=== PATIENT | female | born 1975 | race Caucasian/White ===

== ENCOUNTER 2020-01-04 19:45 | Emergency (ER) | payer MEDICARE, SELFPAY ==
[2020-01-04 20:39] VITALS: BP 140/85; PULSE 122; RESP 18; TEMP 36.6; O2SAT 95; BMI 38.7
--- NOTE | 2020-01-04 21:51 | ECG_ITS ---
Measurements Intervals [place] Rate: 121 P: 56 HI: 170 QRS: 47 QRSD: 101 T: 59 QT: 303 QTc: 431 SINUS TACHYCARDIA WITH FREQUENT VENTRICULAR PREMATURE COMPLEXES INCOMPLETE RIGHT BUNDLE BRANCH BLOCK [90+ ms QRS DURATION, TERMINAL R IN V1/V2, 40+ ms S IN I/aVL/V4/V5/V6] MODERATE ST DEPRESSION [0.05+ mV ST DEPRESSION] No previous ECG available for comparison Electronically Signed On 01-08-2020 16:55:13 WARP CHANGER by Dave Prieto M.D. [id number] tracy
[2020-01-04 22:39] VITALS: BP 124/85; PULSE 111; RESP 18; O2SAT 95
[2020-01-04 22:50] LABS: Basophils # 0.1 10^3/uL (0.0-0.1); Basophils % 0.6 %; Eosinophils # 0.3 10^3/uL (0.0-0.8); Eosinophils % 3.1 %; Hematocrit 43.3 % (37.0-47.0); Hemoglobin 14.2 g/dL (11.5-15.3); Lymphocytes # 2.9 10^3/uL (0.8-4.8); Lymphocytes % 34.7 %; Mean Corpuscular HGB Conc 32.8 g/dL (30.0-36.0); Mean Corpuscular Hemoglobin 29.1 pg (28.0-34.0); Mean Corpuscular Volume 88.7 fL (81-99); Mean Platelet Volume 8.4 fL (7.4-10.4); Monocytes # 0.5 10^3/uL (0.2-0.9); Monocytes % 6.2 %; Neutrophils # 4.6 10^3/uL (1.8-7.7); Neutrophils % 55.2 %; Nucleated Red Blood Cells % 0 %; Platelet Count 429 10^3/cmm (130-400); Red Blood Count 4.88 10^6/uL (4.1-5.3); Red Cell Distribution Width 12.5 % (12.1-15.1); White Blood Count 8.4 10^3/uL (4.0-10.0)
[2020-01-04 22:51] LABS: Add Urine Microscopic? NO
[2020-01-04 22:58] LABS: HCG, Serum Qual Negative (Negative)
[2020-01-04 22:59] LABS: Bilirubin Urine Neg (NEGATIVE); Blood Urine Neg (Negative); Glucose Urine UA Norm (Normal); Ketones Urine Negative (Negative); Leukocyte Esterase Urine Negative (Negative); Nitrate Urine Negative (Negative); Protein Urine Neg (Negative); Urine Appearance Clear (CLEAR); Urine Color Yellow (Yellow); Urobilinogen Urine Norm (Negative); pH Urine 5 (5-7)
[2020-01-04 23:19] LABS: Troponin T (5th) Once 6 ng/mL (0-10)
[2020-01-04 23:26] LABS: Alanine Aminotransferase 26 U/L (0-33); Albumin Level 4.8 g/dL (3.5-5.2); Alkaline Phosphatase 110 IU/L (35-105); Aspartate Amino Transferase 22 U/L (0-32); Blood Urea Nitrogen 16 mg/dL (6-20); Calcium 10.2 mg/dL (8.5-10.5); Carbon Dioxide 24 mmol/L (22-29); Chloride 99 mmol/L (98-107); Creatine Phosphokinase 123 U/L (26-192); Globulin 3.2 g/dL (1.3-4.6); Glucose 105 mg/dL (65-115); Sodium 137 mmol/L (136-145); Thyroid Stimulating Hormone 3.43 uIU/mL (0.27-4.20); Total Bilirubin 0.3 mg/dL (0.15-1.2)
== END 2020-01-04 22:50 | disposition left against medical advice (07) ==
LOC: ER 21:30
PROVIDERS: Emergency Provider Emergency Medicine; Family Provider Family Medicine; PCP Family Medicine
DX: R42 Dizziness and giddiness (principal); E06.3 Autoimmune thyroiditis; Z87.891 Personal history of nicotine dependence; Z53.21 Procedure and treatment not carried out due to patient leaving prior to being seen by health care provider
CPT/HCPCS: 80053; 81003; 82550; 84443; 84484; 84703; 85025; 93005; 99281; 99283; A9270

== ENCOUNTER 2020-07-07 20:00 | Outpatient (CLI) | payer MEDICARE, SELFPAY | END 2020-07-07 20:01 | disposition home or self-care (01) | LOC: SLEEP 07-08 09:17 | PROVIDERS: Family Provider Family Medicine; PCP Family Medicine; Visit Provider Family Medicine | DX: G47.33 Obstructive sleep apnea (adult) (pediatric) (principal) | CPT/HCPCS: 95811 ==

== ENCOUNTER 2021-03-23 07:47 | Outpatient (CLI) | payer MEDICARE, SELFPAY ==
--- NOTE | 2021-03-23 07:55 | MM_ITS ---
WS: [id number] SCREENING DIGITAL MAMMOGRAM WITH CAD HISTORY: SCREENING COMPARISON: 02/22/2015 Bilateral CC and MLO views submitted. Computer aided detection analyzed. Breast composition: There are scattered areas of fibroglandular density. Ovoid nodules now noted in t he posterior medial RIGHT breast measuring 9.3 mm. On the lateral projection this is probably just ab ove the nipple line. No additional masses. MM/[place] [id number] IMPRESSION: BI-RADS: 0-Incomplete: Need additional imaging evaluation FOLLOW UP: Need Additional Imaging RIGHT breast: Spot compression views (CC and MLO). True ML. Ultrasound to follo w if abnormality persists.
== END 2021-03-23 07:48 | disposition home or self-care (01) ==
LOC: RADSHAW 07:53
PROVIDERS: Family Provider Family Medicine; PCP Family Medicine; Visit Provider Family Medicine
DX: Z12.31 Encounter for screening mammogram for malignant neoplasm of breast (principal)
CPT/HCPCS: 77067

== ENCOUNTER 2021-04-12 07:49 | Outpatient (CLI) | payer MEDICARE, SELFPAY ==
--- NOTE | 2021-04-12 07:54 | MM_ITS ---
WS: [id number] ADDITIONAL VIEWS RIGHT BREAST RIGHT breast ultrasound, limited. HISTORY: ABNORMAL MAMMOGRAM COMPARISON: 02/22/2015 and 03/23/2021 Compression views right CC and MLO projection. True ML also submitted. Early seen only on the CC projection is a slightly lobulated nodule noted in the posterior breast jus t medial to the nipple line. This measures about 8 mm. Very poorly seen. RIGHT breast ultrasound, limited. In the posterior RIGHT breast at 1:00, 3 cm from the nipple is a vague hypoechoic area measuring 7 x 4 x 4 mm which may correspond to the abnormality. This may be a complex cyst. MM/[place] [id number] IMPRESSION: BI-RADS: 3-Probably Benign FOLLOW-UP: 6 Month Follow-up Recommend 6 month follow-up RIGHT breast and ultrasound to reevaluate the minim ally complex cystic nodule in the posterior RIGHT breast.
--- NOTE | 2021-04-12 08:19 | US_ITS ---
WS: [id number] ADDITIONAL VIEWS RIGHT BREAST RIGHT breast ultrasound, limited. HISTORY: ABNORMAL MAMMOGRAM COMPARISON: 02/22/2015 and 03/23/2021 Compression views right CC and MLO projection. True ML also submitted. Early seen only on the CC projection is a slightly lobulated nodule noted in the posterior breast jus t medial to the nipple line. This measures about 8 mm. Very poorly seen. RIGHT breast ultrasound, limited. In the posterior RIGHT breast at 1:00, 3 cm from the nipple is a vague hypoechoic area measuring 7 x 4 x 4 mm which may correspond to the abnormality. This may be a complex cyst. US/US breast RT limited* [id number] IMPRESSION: BI-RADS: 3-Probably Benign FOLLOW-UP: 6 Month Follow-up Recommend 6 month follow-up RIGHT breast and ultrasound to reevaluate the minim ally complex cystic nodule in the posterior RIGHT breast.
== END 2021-04-12 07:50 | disposition home or self-care (01) ==
LOC: RADSHAW 07:52
PROVIDERS: Family Provider Family Medicine; PCP Family Medicine; Visit Provider Family Medicine
DX: R92.8 Other abnormal and inconclusive findings on diagnostic imaging of breast (principal); N63.10 Unspecified lump in the right breast, unspecified quadrant
CPT/HCPCS: 76642; 77065

== ENCOUNTER 2021-12-02 11:50 | Outpatient (CLI) | payer MEDICARE, MEDICAID, SELFPAY ==
--- NOTE | 2021-12-02 12:00 | MM_ITS ---
WS: [id number] RIGHT DIGITAL MAMMOGRAPHY WITH CAD CLINICAL INFORMATION: ABNORMAL MAMMO HISTORY: Six-month follow-up COMPARISON: April 12, 2021 TECHNIQUE: 5 views of the right breast were obtained. FINDINGS: Scattered fibroglandular densities of the right breast. Again seen is the slightly lobulated 8 mm nod ule in the posterior right breast. This is stable in appearance. Right breast ultrasound is pending. ULTRASOUND BREAST RIGHT TECHNIQUE: Ultrasound right breast focused area of concern. CLINICAL INFORMATION: ABNORMAL MAMMO FINDINGS: Ultrasound right breast at the 3:00 position 3 cm from the nipple. Previously described small hypoech oic nodule measuring 5.2 x 4.4 x 3.8 mm is stable in appearance. This may represent a complex cyst bu t indeterminant and recommend 6 month follow-up to confirm stability. MM/[place] [id number] IMPRESSION: BI-RADS: 3-Probably Benign FOLLOW UP: 6 Month Follow-up RECOMMEND 6 MONTH FOLLOW-UP RIGHT BREAST DIAGNOSTIC MAMMOGRAPHY AND ULTRASOUND.
== END 2021-12-02 11:51 | disposition home or self-care (01) ==
PROVIDERS: Family Provider Family Medicine; PCP Family Medicine; Visit Provider Family Medicine
DX: R92.8 Other abnormal and inconclusive findings on diagnostic imaging of breast (principal)
CPT/HCPCS: 76642; 77065

== ENCOUNTER 2022-04-04 07:45 | Outpatient (CLI) | payer OTHER, MEDICAID, SELFPAY ==
--- NOTE | 2022-04-04 | XR_ITS ---
WS: [id number] ELBOW RIGHT TECHNIQUE: 3 views of the right elbow CLINICAL INFORMATION: RIGHT ARM PAIN COMPARISON: None. FINDINGS: Mild soft tissue edema. Small joint effusion. Normal radial head and neck. Slight irregularity along the coronoid process may represent tiny avulsion fracture. Recommend further evaluation with CT. XR/XR elbow RT min 3V* [id number] IMPRESSION: Slight irregularity along the coronoid process may represent tiny avulsion frac ture. Recommend further evaluation with CT.
== END 2022-04-04 07:46 | disposition home or self-care (01) ==
LOC: RADOUTREAD 04-06 07:56
PROVIDERS: Family Provider Family Medicine; PCP Family Medicine; Visit Provider Nurse Practitioner Family
DX: M79.601 Pain in right arm (principal)
CPT/HCPCS: 73080

== ENCOUNTER → 2022-04-20 12:38 | Outpatient (BNVA) | payer MEDICARE, SELFPAY | PROVIDERS: Family Provider Family Medicine; PCP Family Medicine; Referring Provider Family Medicine; Visit Provider Specialist | DX: G56.03 Carpal tunnel syndrome, bilateral upper limbs (principal); G62.89 Other specified polyneuropathies | CPT/HCPCS: 95913 ==

== ENCOUNTER 2022-06-01 10:32 | Outpatient (CLI) | payer MEDICARE, SELFPAY ==
--- NOTE | 2022-06-01 10:43 | MM_ITS ---
WS: [id number] BILATERAL 3D TOMOSYNTHESIS DIGITAL DIAGNOSTIC MAMMOGRAPHY WITH CAD CLINICAL INFORMATION: ABNORMAL MAMMO COMPARISON: April 12, 2021 and December 02, 2021 TECHNIQUE: Bilateral CC, MLO, and ML views. FINDINGS: Scattered fibroglandular densities bilaterally. Previously described lobulated 8 mm nodule in the posterior right breast is less distinct today. No n ew findings. Right breast ultrasound is pending. LEFT breast is unremarkable and unchanged from previous. ULTRASOUND BREAST RIGHT TECHNIQUE: Ultrasound right breast focused area of concern. CLINICAL INFORMATION: ABNORMAL MAMMO FINDINGS: Ultrasound RIGHT breast 11:00 position 3 cm from the nipple. Tiny hypoechoic lesion measuring 5.6 x 2 .1 x 3.5 mm likely represents a complex cyst and unchanged from the prior examinations. This has a be nign appearance. Recommend return to annual screening mammography. MM/[place] [id number] IMPRESSION: BI-RADS: 2-Benign FOLLOW UP: 1 Year Follow-up Recommend return to annual screening mammography.
== END 2022-06-01 10:33 | disposition home or self-care (01) ==
PROVIDERS: PCP Family Medicine; Visit Provider Family Medicine
DX: R92.8 Other abnormal and inconclusive findings on diagnostic imaging of breast (principal)
CPT/HCPCS: 76642; 77062

== ENCOUNTER 2022-06-18 22:10 | Emergency (ER) | payer MEDICARE, SELFPAY ==
[2022-06-18 22:17] VITALS: BP 137/84; PULSE 97; RESP 16; TEMP 36.5; O2SAT 96
--- NOTE | 2022-06-18 22:24 | XRR_ITS ---
PROCEDURE INFORMATION: Exam: XR Chest Exam date and time: 06/18/2022 10:31 PM Age: 47 years old Clinical indication: Pain; Chest pressure; Patient HX: C/O shortness of breath, coughing; Additional info: SOB TECHNIQUE: Imaging protocol: Radiologic exam of the chest. Views: 1 view. COMPARISON: CR Chest 2 views* [id number] 12/06/2015 5:35 PM FINDINGS: Lungs: See Soft tissues finding. Pleural spaces: Unremarkable. No pleural effusion. No pneumothorax. Heart/Mediastinum: No cardiomegaly. Bones/joints: No acute findings. Soft tissues: Questionable ill-defined left basilar opacity may be related to prominent overlying soft tissue. However follow-up including lateral view may be obtained if symptoms persist. Lungs are otherwise grossly clear. XR/XR chest 1V portable [id number] IMPRESSION: ? Ill-defined left basilar opacity.
--- NOTE | 2022-06-18 22:24 | ECG_ITS ---
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 Measurements Intervals [place] Rate: 87 P: 60 CA: 138 QRS: 17 QRSD: 94 T: 51 QT: 325 QTc: 392 Interpretive Statements SINUS RHYTHM LOW QRS VOLTAGE IN PRECORDIAL LEADS [QRS DEFLECTION < 1.0 mV IN CHEST LEADS] Compared to ECG 01/07/2020 21:55:29 Low QRS voltage now present Sinus tachycardia no longer present Ventricular premature complex(es) no longer present Incomplete right bundle-branch block no longer present ST (T wave) deviation no longer present Electronically Signed On 06-19-2022 13:13:00 CDT by Camilo Seals M.D. [id number] f
--- NOTE | 2022-06-18 23:38 | W.ED.COVID ---
HPI - COVID General: Chief Complaint: COVID symptoms Stated Complaint: covid symptoms Time Seen by Provider: 06/18/22 22:53 Source: patient Mode of arrival: ambulatory Limitations: no limitations Triage information: Has fever, cough or shortness of breath. No known COVID + exposure last 14 days History of Present Illness: 47-year-old female states that over the last 4 to 5 days she has been having cough along with wheezing with some slight shortness of breath. States that her cough is worsened. She denies any pain or fevers she denies any worsening proving factors denies any history of COPD is non-smoker. COVID 19 common symptoms: positive non-productive cough and dyspnea; negative fever(s), chills, body aches, headache(s), throat pain, nausea, vomiting or diarrhea COVID 19 other sytmptoms: negative chest pain COVID Results: SARS-CoV-2 Antigen (Rapid) Negative (Negative) 06/18/22 23:38 Review of Systems Const: Denies: fever(s), chills, body aches or change in appetite Eyes: Denies: blurry vision or eye discomfort ENMT: Denies: throat pain or dental pain Card: Denies: chest pain Resp: Reports: dyspnea, non-productive cough and wheezing GI: Denies: abdominal pain, nausea, vomiting or diarrhea : Denies: dysuria Musc: Denies: neck pain or back pain Skin/Breast: Denies: rash Neuro: Denies: headache(s) Psych: Denies: depression Jaspal/Lymph: Denies: easy bruising All/Imm: Denies: urticaria PFSH ED PFSH: Medical History (Updated 06/19/22 @ 00:41 by Alfredo Swann MD) Peripheral neuropathy Social History Smoking and tobacco status: former smoker Alcohol intake: never History of recent travel: No Physical Exam Const: COMMON NORMALS: no acute distress, patient oriented x3 and healthy appearing HENMT: COMMON NORMALS: normocephalic and atraumatic HEAD & SCALP: normocephalic and atraumatic Eye: COMMON NORMALS: Equal, round and reactive pupils present and EOMs intact bilaterally PUPIL: Yes Equal, round and reactive pupils present Neck/C-Spine: COMMON NORMALS: full ROM and supple Chest: COMMONS NORMALS: normal inspection of the chest and normal palpation of entire chest wall Resp: COMMON NORMALS: normal respiratory effort, No retractions and No use of accessory muscles AUSCULTATION: wheezes Cardio: COMMON NORMALS: regular rate, regular rhythm and No murmurs present (Cardio) RATE: regular rate RHYTHM: regular rhythm GI: COMMON NORMALS: Normal to inspection, nondistended, normoactive bowel sounds present, Soft to palpation, non-tender and no masses PALPATION: Yes Soft to palpation Extremity: COMMON NORMALS: normal to inspection and full ROM Neuro: COMMON NORMALS: patient oriented x3, moves all extremities and no focal motor deficits Psych: COMMON NORMALS: mental status grossly normal, Normal thought process present and cooperative THOUGHT PROCESS: Normal thought process present Skin: COMMON NORMALS: no rashes or lesions noted and no wounds GENERAL SKIN EXAM: no rashes or lesions noted Course Vital Signs: Vital signs: Vital Signs Temperature 97.7 F 06/18/22 22:17 Pulse Rate 90 06/18/22 23:41 Respiratory Rate 22 H 06/18/22 23:41 Blood Pressure 109/73 06/18/22 23:41 Pulse Oximetry 98 06/18/22 23:47 Oxygen Delivery Me thod 06/18/22 23:47 MDM - COVID Medical Decision Making Patient presents here with cough with mild wheezing with a likely bronchitis with possible pneumonia we will start on antibiotics along with steroids and albuterol inhaler she is well-appearing here in no distress she is stable for discharge she is to follow-up with PCP and return if worsening she understands agrees to plan. Lab Data : 06/18/22 23:38 06/18/22 23:38 Radiology Impressions Chest X-Ray 06/18/22 22:24 IMPRESSION: ? Ill-defined left basilar opacity. Laboratory Results WBC 11.2 10^3/uL (4.0-10.0) H 06/18/22 23:38 RBC 4.54 10^6/uL (4.1-5.3) 06/18/22 23:38 Hgb 13.4 g/dL (11.5-15.3) 06/18/22 23:38 Hct 41.6 % (37.0-47.0) 06/18/22 23:38 MCV 91.6 fl (81-99) 06/18/22 23:38 MCH 29.5 pg (28.0-34.0) 06/18/22 23:38 MCHC 32.2 g/dL (30.0-36.0) 06/18/22 23:38 RDW 13.6 % (12.1-15.1) 06/18/22 23:38 Plt Count 423 10^3/cmm (130-400) H 06/18/22 23:38 MPV 9.0 fL (7.4-10.4) 06/18/22 23:38 Neut % (Auto) 59.7 % 06/18/22 23:38 Lymph % (Auto) 26.3 % 06/18/22 23:38 [place] % (Auto) 6.5 % 06/18/22 23: Eos % (Auto) 6.3 % 06/18/22 23:38 Baso % (Auto) 0.8 % 06/18/22 23:38 Neut # (Auto) 6.67 10^3/uL (1.8-7.7) 06/18/22 23:38 Lymph # (Auto) 2.9 10^3/uL (0.8-4.8) 06/18/22 23:38 [place] # (Auto) 0.7 10^3/uL (0.2-0.9) 06/18/22 23:38 Eos # (Auto) 0.7 10^3/uL (0.0-0.8) 06/18/22 23: Baso # (Auto) 0.1 10^3/uL (0.0-0.1) 06/18/22 23:38 Nucleated RBC % (auto) 0 % 06/18/22 23: Nucleated RBCs # 0.0 /100WBC 06/18/22 23:38 Sodium 140 mmol/L (136-145) 06/18/22 23:38 Potassium 4.1 mmol/L (3.5-5.1) 06/18/22 23:38 Chloride 104 mmol/L (98-107) 06/18/22 23:38 Carbon Dioxide 25 mmol/L (22-29) 06/18/22 23:38 Anion Gap 15.1 (5-19) 06/18/22 23:38 BUN 11 mg/dL (6-20) 06/18/22 23:38 Creatinine 0.7 mg/dL (0.5-0.9) 06/18/22 23:38 GFR Calculation 89.7 mL/min (90-130) L 06/18/22 23:38 Glucose 104 mg/dL (65-115) 06/18/22 23:38 Calculated Osmolality 290 mOsm/kg (285-295) 06/18/22 23:38 Calcium 9.4 mg/dL (8.5-10.5) 06/18/22 23:38 Total Bilirubin 0.2 mg/dL (0.15-1.2) 06/18/22 23:38 AST 28 U/L (0-32) 06/18/22 23:38 ALT 31 U/L (0-33) 06/18/22 23:38 Alkaline Phosphatase 128 IU/L (35-105) H 06/18/22 23:38 NT-Pro-B Natriuret Pep 68 pg/mL (0-125) 06/18/22 23:38 Total Protein 7.0 g/dL (6.6-8.7) 06/18/22 23:38 Albumin 4.0 g/dL (3.5-5.2) 06/18/22 23:38 Globulin 3.0 g/dL (1.3-4.6) 06/18/22 23:38 SARS-CoV-2 Ag (Rapid) Negative (Negative) 06/18/22 23:38 SARS-CoV-2 Antigen (Rapid) Negative (Negative) 06/18/22 23:38 Discharge Plan Discharge Patient Disposition: Home Clinical Impression: Bronchitis Condition: Stable Prescriptions: New prednisone 50 mg tablet 50 mg PO DAILY Qty: 5 0RF albuterol sulfate 90 mcg/actuation HFA aerosol inhaler 2 inh INHALATION Q6H PRN (Reason: shortness of breath or wheezing) Qty: 8 0RF doxycycline hyclate 100 mg tablet 100 mg PO BID 7 Days Qty: 14 0RF No Action diclofenac sodium 75 mg tablet,delayed release (DR/EC) 75 mg PO BID ergocalciferol (vitamin D2) 1,250 mcg (50,000 unit) capsule 1,250 mcg PO DAILY montelukast 10 mg tablet 10 mg PO DAILY hydroxyzine HCl 25 mg tablet 25 mg PO TID PRN pantoprazole 40 mg tablet,delayed release (DR/EC) 40 mg PO DAILY topiramate [Topamax] 50 mg tablet 150 mg PO DAILY magnesium oxide 400 mg magnesium tablet 400 mg PO DAILY Discharge Orders: Discharge ED (Routine); Ordered 06/19/22 Ordered By: Alfredo Swann Referrals: Gopi Barrera MD [Primary Care Provider] - Discharge Diet: Advance as tolerated Discharge Activity: Resume usual activity Patient Instructions: Bronchitis (Acute) - Adult Coding Level of Care Code ED Steamship Agent for Chg Fwd Exam Comprehensive
[2022-06-18 23:41] VITALS: BP 109/73; PULSE 90; RESP 22; O2SAT 98
[2022-06-18 23:47] VITALS: O2SAT 98
[2022-06-19] MEDS: midazolam 1 mg/mL INJ 2 mL IVP (00:01)
[2022-06-19 00:20] LABS: Basophils # 0.1 10^3/uL (0.0-0.1); Basophils % 0.8 %; Eosinophils # 0.7 10^3/uL (0.0-0.8); Eosinophils % 6.3 %; Hematocrit 41.6 % (37.0-47.0); Hemoglobin 13.4 g/dL (11.5-15.3); Lymphocytes # 2.9 10^3/uL (0.8-4.8); Lymphocytes % 26.3 %; Mean Corpuscular HGB Conc 32.2 g/dL (30.0-36.0); Mean Corpuscular Hemoglobin 29.5 pg (28.0-34.0); Mean Corpuscular Volume 91.6 fl (81-99); Monocytes # 0.7 10^3/uL (0.2-0.9); Monocytes % 6.5 %; Neutrophils # 6.67 10^3/uL (1.8-7.7); Neutrophils % 59.7 %; Nucleated Red Blood Cells % 0 %; Platelet Count 423 10^3/cmm (130-400); Red Blood Count 4.54 10^6/uL (4.1-5.3); Red Cell Distribution Width 13.6 % (12.1-15.1); White Blood Count 11.2 10^3/uL (4.0-10.0)
[2022-06-19 00:24] LABS: Alanine Aminotransferase 31 U/L (0-33); Alkaline Phosphatase 128 IU/L (35-105); Anion Gap 15.1 (5-19); Aspartate Amino Transferase 28 U/L (0-32); Blood Urea Nitrogen 11 mg/dL (6-20); Calcium 9.4 mg/dL (8.5-10.5); Carbon Dioxide 25 mmol/L (22-29); Chloride 104 mmol/L (98-107); Glomerular Filtration Rate 89.7 mL/min (90-130); Glucose 104 mg/dL (65-115); NT Pro B Type Natriuretic Pept 68 pg/mL (0-125); Osmolality Calculated 290 mOsm/kg (285-295); Potassium 4.1 mmol/L (3.5-5.1); Sodium 140 mmol/L (136-145); Total Bilirubin 0.2 mg/dL (0.15-1.2)
[2022-06-19 00:35] LABS: SARS Covid-2 Antigen Negative (Negative)
--- NOTE | 2022-06-19 00:50 | PC.NURSE ---
RT has not started breathing treatments, unable to chart duoneb in jan, duoneb treatments started at this time via nebulizer per order per policy, tolerating well.
[2022-06-19 00:58] VITALS: BP 110/77; PULSE 75; RESP 20; O2SAT 100
[2022-06-19] MEDS: doxycycline 100 mg Tablet PO (01:10)
== END 2022-06-19 01:22 | disposition home or self-care (01) ==
PROVIDERS: Emergency Provider Emergency Medicine; PCP Family Medicine
DX: J40 Bronchitis, not specified as acute or chronic (principal); Z87.891 Personal history of nicotine dependence; Z20.822 Contact with and (suspected) exposure to COVID-19
CPT/HCPCS: 71045; 80053; 83880; 85025; 87426; 93005; 96374; 99285; J2250

== ENCOUNTER → 2022-09-20 14:00 | Outpatient (BNVA) | payer MEDICARE, SELFPAY | PROVIDERS: PCP Family Medicine; Referring Provider Family Medicine; Visit Provider Specialist | DX: G56.03 Carpal tunnel syndrome, bilateral upper limbs (principal); G62.9 Polyneuropathy, unspecified | CPT/HCPCS: 73110; 99204 ==

== ENCOUNTER 2022-12-22 05:40 | Day surgery (SDC) | payer MEDICARE, SELFPAY ==
[2022-12-22] VITALS (8 sets, daily range): BP systolic 110–160; BP diastolic 71–92; PULSE 85–96; RESP 16–18; TEMP 36.1–36.5; O2SAT 95–100
[2022-12-22] MEDS: sodium chloride 0.9% 1,000 ML 30 ML IV (06:30)
[2022-12-22] MEDS: CELEcoxib 200 mg Capsule 400 MG PO (06:31)
[2022-12-22] MEDS: acetaminophen 1,000 MG/100 ML PIGGYBACK 400 MG IV (06:31)
[2022-12-22] MEDS: scopolamine 1.5 Patch 1 PATCH TRANSDERMA (06:45)
--- NOTE | 2022-12-22 06:47 | W.PM.OPSUD ---
Surgery/Procedure H&P Update DATE OF PROCEDURE: December 22, 2022 DATE H&P PERFORMED: 12/20/22 H&P UPDATE INFORMATION: I have reviewed H&P completed within last 30 days, I have examined patient prior to procedure, No changes to prior documentation and H&P is in [facility] EMR on date indicated PREOP DIAGNOSIS: Right carpal tunnel syndrome PLANNED PROCEDURE: Operation Date: 12/22/22 07:00 Proposed Procedures p RIGHT CARPAL TUNNEL RELEASE 10523 G56.00(Right) - Jeanette Moreno MD Related Problem List Diagnoses (1) Carpal tunnel syndrome of right wrist:
[2022-12-22] MEDS: ceFAZolin 2,000 MG in sodium chloride 0.9% (plus) 50 ML 100 MG IV (07:00)
--- NOTE | 2022-12-22 07:03 | P.ANESASSM_ITS ---
Pre-Anesthetic Assessment Height/Weight: Height 1.63 m Weight 108.862 kg Temp Pulse Resp BP Pulse Ox O2 Del Method 97.2 F L 96 16 122/78 100 12/22/22 06:15 12/22/22 06:15 12/22/22 06:15 12/22/22 06:15 12/22/22 06:15 12/22/22 06:15 Preop Diagnosis: Right carpal tunnel syndrome Operation Date: 12/22/22 07:00 Proposed Procedures p RIGHT CARPAL TUNNEL RELEASE 05027 G56.00(Right) - Jeanette Moreno MD Familial anesthetic complications: none Was Beta Cecelia taken within 24 hours: N/A Was Clonidine taken within 24 hours: N/A Last intake: Intake Last Liquid Date 12/21/22 Last Liquid Time 21:00 Last Solid Date 12/21/22 Last Solid Time 21:00 Social No alcohol and No tobacco Exam alert, oriented x 3, clear to auscultation bilaterally and regular rate & rhythm Airway Submandibular: within normal limits Cervical ROM: within normal limits Mallampati: Class II Dentition: full GI Gastroesophageal Reflux Disease Metabolic Morbid Obesity and Thyroid Disease Neuropsych Neuropathy Anesthetic Plan ASA status: 2 Anesthesia: Choice Medications/Allergies Home Medications Medication Instructions Recorded Confirmed Last Taken Type diclofenac sodium 75 mg 75 mg PO BID 04/20/22 12/21/22 12/20/22 History tablet,delayed release ergocalciferol (vitamin D2) 1,250 1,250 mcg PO .WKLY 04/20/22 12/22/22 12/18/22 History mcg (50,000 unit) capsule hydroxyzine HCl 25 mg tablet 25 mg PO TID PRN Anxiety 04/20/22 12/21/22 12/20/22 History magnesium oxide 400 mg PO DAILY 04/20/22 12/21/22 12/20/22 History montelukast 10 mg tablet 10 mg PO DAILY 04/20/22 12/21/22 12/20/22 History pantoprazole 40 mg tablet,delayed 40 mg PO DAILY 04/20/22 12/21/22 12/20/22 History release topiramate 50 mg tablet (Topamax) 150 mg PO BEDTIME 04/20/22 12/22/22 12/21/22 History semaglutide 0.25 mg or 0.5 mg (2 See Rx Instructions .Route 11/08/22 12/21/22 12/21/22 Rx mg/1.5 mL) subcutaneous pen .COMPLEX #1.5 mL injector ([employer]) Cock Up Splint #1 ea 12/20/22 12/20/22 Unknown Rx levothyroxine 75 mcg tablet 75 mcg PO 1XD 12/21/22 12/22/22 12/22/22 History modafinil 200 mg tablet 200 mg PO DAILY 12/21/22 12/22/22 12/20/22 History Allergies Allergy/AdvReac Type Severity Reaction Status Date / Time No Known Allergies Allergy Verified 12/21/22 13:45 Current Medications Generic Name Dose Route Start Last Admin Trade Name Freq PRN Reason Stop Dose Admin Sodium Chloride 1,000 mls @ 30 mls/hr 12/22/22 06:00 12/22/22 06:30 Sodium Chloride 0.9% IV 12/23/22 05:59 30 mls/hr .Q24H KAMALA Administration PFSH Anesthesia Medical History Peripheral neuropathy Social History Smoking and tobacco status: former smoker Alcohol intake: never History of recent travel: No Female Reproductive History Date of last menstrual period: 03/05/22 Data Anesthesia Cardiac Studies: No Data to Display
[2022-12-22 07:11] LABS: OR HCG Qualitative Urine Negative (Negative)
--- NOTE | 2022-12-22 07:50 | PM.OP ---
Operative Report Date of procedure: December 22, 2022 Pre-op diagnosis: Right carpal tunnel syndrome Post-op diagnosis: Right carpal tunnel syndrome Post-op findings: Severe compression across the median nerve with purplish discoloration Procedure done: Right carpal tunnel release Pathology: none sent Surgeon: Jeanette Moreno Jewelry Making Instructor: None Anesthesia: General (Per LMA, ASA 2) Estimated blood loss (mL): 2 Tourniquet time (min): 13 (At 250 mmHg) IV fluids (mL): 500 Urine output (mL): 0 (No Wright) Complications: None Findings: Severe compression across the median nerve with purplish discoloration and fibrous tissue. Condition: stable Disposition: PACU (Then to same-day surgery for discharge home) Brief History: This is an established 47 year old female patient who presented with complaints of bilateral carpal tunnel syndrome. She reported worsening symptoms since her visit in September 2022. She is here today to further discuss her surgical plan.? Risks and complications of carpal tunnel surgery were again reviewed with the patient.? Currently, she notes the right wrist is worse than the left, and she would like to proceed with carpal tunnel release. She is tentatively scheduled for a right carpal tunnel release on 12/22/22. Procedure: The patient was brought to the operating theater. The patient had general anesthesia per LMA, ASA 2. The tourniquet was elevated to 250 mmHg for a total tourniquet time of 13 minutes. The patient was also given Ancef 2 g preoperatively. The arm was then prepped and draped with DuraPrep in usual fashion with the arm draped free. A surgical pause was performed. At the time, the surgical pause, we confirmed the site and side of surgery. We also confirmed the patient's identity, appropriate and timely administration of preoperative antibiotics and preoperative surgical markings. An incision was then made along the thenar crease. The incision crossed the wrist joint in a curvilinear fashion. Dissection continued through skin and soft tissues using a scalpel. The palmaris longus was identified along with the transverse carpal ligament. Each of these was released carefully to avoid injury to the median nerve. We were able to dissect gently into the carpal canal which was noted to be quite tight with significant compression across the median nerve. The nerve was visualized and was an hourglass shape. There is also purplish discoloration to the nerve. The canal was subsequently palpated to assure there was no bony encroachment upon the canal. There was a quite thickened fibrous tissue within the canal, and this was opened longitudinally as well. The canal was then palpated distally and proximally to assure that my small finger was passed easily without impingement. Finding this to be so, attention was directed to closure. The wound was irrigated with ropivacaine plain. It was then closed with 3-0 nylon in an interrupted mattress fashion. Sterile dressing was then placed consisting of Dermabond, OpSite, fluffed fluffs, sterile soft roll, and an Ron wrap. The tourniquet was released after 13 minutes. There were no complications. There were no specimens. The procedure was well tolerated. Plan is the patient will be discharged home. Related Problem List Diagnoses (1) Carpal tunnel syndrome of right wrist:
[2022-12-22] MEDS: HYDROcodone-acetaminophen 5-325 mg Tablet 1 TAB PO (08:53)
--- NOTE | 2022-12-22 14:17 | ANE.PACU2 ---
Inpatient post-anesthesia follow up: Airway intact: Yes Vital signs: Temperature 97.7 F Pulse Rate 85 Respiratory Rate 18 Blood Pressure 139/78 Pulse Oximetry 99 Oxygen Delivery Me thod Room Air Oxygen Flow Rate Fraction of Inspir ed Oxygen Hydration adequate: Yes Nausea and vomiting: No Pain level: 2 Mental status: Baseline
== END 2022-12-22 09:10 | disposition home or self-care (01) ==
PROVIDERS: PCP Family Medicine; Visit Provider Specialist
PROC: (CPT 64721; principal; 2022-12-22 07:00)
DX: G56.01 Carpal tunnel syndrome, right upper limb (principal); K21.9 Gastro-esophageal reflux disease without esophagitis; E66.01 Morbid (severe) obesity due to excess calories; Z68.41 Body mass index [BMI] 40.0-44.9, adult; Z87.891 Personal history of nicotine dependence
CPT/HCPCS: 64721; 81025; 84703; 97760; J0131; J0690; J1100; J2250; J2370; J2405; J2704; J3010; J3490; J7030; L3908

== ENCOUNTER → 2023-01-04 08:19 | Outpatient (BNVA) | payer MEDICARE, SELFPAY | PROVIDERS: PCP Family Medicine; Visit Provider Nurse Practitioner Family | DX: Z47.89 Encounter for other orthopedic aftercare (principal) | CPT/HCPCS: 99024; 99212 ==

== ENCOUNTER 2023-02-05 19:08 | Emergency (ER) | payer MEDICARE, MEDICAID, SELFPAY ==
[2023-02-05 19:17] VITALS: BP 127/87; PULSE 87; RESP 16; TEMP 36.4; O2SAT 98; BMI 40.3
--- NOTE | 2023-02-05 20:02 | ED_ITS ---
HPI - Dental/Oral General: Chief complaint: Dental/Oral Stated complaint: ToothAche Time Seen by Provider: 02/05/23 20:01 History of Present Illness: 48-year-old female comes in today with complaints of left lower jaw pain. Patient has a decayed and fractured tooth. The first premolar has broken off and has a exposed root. Patient was seen by a dentist and was started on antibiotics last week and is supposed to follow-up this . Patient reports some increased pain and discomfort the last 2 days although the swelling to the area has improved. Associated symptoms: Denies fever(s) Review of Systems General: Reports: 10 or more systems reviewed and unremarkable except in HPI and below Const: Denies: fever(s) ENMT: Reports: dental pain Resp: Denies: dyspnea GI: Denies: abdominal pain : Denies: difficulty voiding Skin/Breast: Denies: rash PFSH ED PFSH: Medical History Peripheral neuropathy Social History Smoking and tobacco status: former smoker Alcohol intake: never Physical Exam Const: COMMON NORMALS: alert HENMT: COMMON NORMALS: normocephalic and TM's normal bilaterally HEAD & SCALP: normocephalic FACE & SINUS: Facial tenderness on exam of face and sinuses (Left lower jaw) TYMPANIC MEMBRANE: TM's normal bilaterally TEETH & GINGIVA: Yes poor dentition (Fractured tooth to the gumline first premolar left lower jaw) THROAT: posterior oropharynx normal Neck/C-Spine: COMMON NORMALS: full ROM Chest: COMMONS NORMALS: normal inspection of the chest Resp: COMMON NORMALS: normal respiratory effort GI: COMMON NORMALS: non-tender Extremity: COMMON NORMALS: normal to inspection Neuro: SENSORIUM/ORIENTATION: Yes alert Skin: COMMON NORMALS: turgor normal GENERAL SKIN EXAM: turgor normal Course Vital Signs: Vital signs: Vital Signs Temperature 97.5 F L 02/05/23 19:17 Pulse Rate 87 02/05/23 19:17 Respiratory Rate 16 02/05/23 19:17 Blood Pressure 127/87 02/05/23 19:17 Pulse Oximetry 98 02/05/23 19:17 Oxygen Delivery Me thod 02/05/23 19:17 MDM - Dental/Oral Medical Decision Making 48-year-old female comes in today with left lower jaw pain. On exam patient has no obvious swelling but does have lower left side jaw tenderness. Patient has exposed root to the first premolar of the left lower jaw. Differential diagnosis includes dental abscess, malingering, dental pain. Patient was written a prescription for hydrocodone for severe pain. We will change antibiotics from plain amoxicillin to Augmentin. Patient was also given some viscous lidocaine to help further with pain control and hopefully numbing of the root nerve. Patient reported understanding of care plan need for follow-up with dentist for definitive care. Patient has appointment with the dentist on for definitive care. Discharge Plan Discharge Patient Disposition: Home Clinical Impression: Toothache Condition: Stable Prescriptions: New hydrocodone-acetaminophen 5-325 mg tablet 1 tab PO Q8H PRN (Reason: pain (scale score 7-10)) Qty: 7 0RF Lidocaine Viscous 2 % solution 1 applic mucous membrane Q4H PRN (Reason: pain) Qty: 100 0RF amoxicillin-pot clavulanate 875-125 mg tablet 1 tab PO BID Qty: 14 0RF No Action (DME) Cock Up Splint See Rx Instructions .Route .MEDSUPPLY Qty: 1 0RF Rx Instructions: As directed diclofenac sodium 75 mg tablet,delayed release (DR/EC) 75 mg PO BID ergocalciferol (vitamin D2) 1,250 mcg (50,000 unit) capsule 1,250 mcg PO .WKLY montelukast 10 mg tablet 10 mg PO DAILY hydroxyzine HCl 25 mg tablet 25 mg PO TID PRN (Reason: Anxiety) pantoprazole 40 mg tablet,delayed release (DR/EC) 40 mg PO DAILY topiramate [Topamax] 50 mg tablet 150 mg PO BEDTIME magnesium oxide 400 mg magnesium tablet 400 mg PO DAILY Ozempic 0.25 mg or 0.5 mg(2 mg/1.5 mL) pen injector See Rx Instructions .ROUTE .COMPLEX Qty: 1.5 1RF Dose Instruction: inject 0.25mg SUBCUTANEOUSLY every week FOR FOUR weeks THEN 0.5mg every week Rx Instructions: inject 0.25mg SUBCUTANEOUSLY every week FOR FOUR weeks THEN 0.5mg every week levothyroxine 75 mcg tablet 75 mcg PO 1XD modafinil 200 mg tablet 200 mg PO DAILY Discharge Orders: Discharge ED (Routine); Ordered 02/05/23 Ordered By: Owen Miller Referrals: Gopi Barrera MD [Primary Care Provider] - Discharge Diet: Usual diet Discharge Activity: Increase activity as tolerated Patient Instructions: Toothache (ED), Opioid Safety Activity Restrictions/Additional Instructions: Stop amoxicillin and start taking amoxicillin with potassium clavulanate. Drink plenty of water with antibiotics. Use lidocaine viscous applied to gauze and then to the opening of the tooth for immediate pain relief. Use acetaminophen ibuprofen to help control pain. Use hydrocodone for severe pain. Follow-up with primary care for further instruction. Return to ED for new concerns. Coding Level of Care Code ED Certified First Assistant for Maritza Pickett
[2023-02-05] MEDS: HYDROcodone-acetaminophen 7.5-325 mg Tablet 1 TAB PO (20:37)
[2023-02-05] MEDS: amoxicillin-clav 875-125 mg Tablet 1 TAB PO (20:37)
[2023-02-05] MEDS: lidocaine 2% viscous 15 mL UDC 5 ML MUCOUS MEM (20:38)
== END 2023-02-05 20:40 | disposition home or self-care (01) ==
PROVIDERS: Emergency Provider Nurse Practitioner Family; PCP Family Medicine
DX: K08.89 Other specified disorders of teeth and supporting structures (principal); Z87.891 Personal history of nicotine dependence
CPT/HCPCS: 99283

== ENCOUNTER 2023-04-25 20:48 | Emergency (ER) | payer MEDICARE, MEDICAID, SELFPAY ==
--- NOTE | 2023-04-25 20:57 | XRR_ITS ---
PROCEDURE INFORMATION: Exam: XR Left Knee Exam date and time: 04/25/2023 9:11 PM Age: 48 years old Clinical indication: Pain; Knee; Left; Additional info: Injury TECHNIQUE: Imaging protocol: Radiologic exam of the left knee. Views: 3 views. COMPARISON: No relevant prior studies available. FINDINGS: Bones/joints: Normal. Soft tissues: Normal. XR/XR knee LT 3V* [id number] IMPRESSION: No acute findings.
[2023-04-25 21:01] VITALS: BP 107/70; PULSE 93; RESP 18; TEMP 36.8; O2SAT 97; BMI 38.4
--- NOTE | 2023-04-25 21:08 | ED_ITS ---
HPI - Extremity Problem General: Chief complaint: Extremity Injury, Lower Stated complaint: Left knee injury Time Seen by Provider: 04/25/23 21:08 History of Present Illness: 48-year-old female comes in today with injury to the left knee. Patient reports that she injured her knee about 2 weeks ago but it seemed to be better and today she return to her workout routine. With her first box jump she landed and felt sudden sharp pain to the left lateral knee. Patient since then has had increased pain and difficulty to the knee. Patient appears nontoxic. Patient appears in mild pain at rest. Associated symptoms: Deny chest pain Review of Systems General: Reports: 10 or more systems reviewed and unremarkable except in HPI and below Card: Denies: chest pain Resp: Denies: dyspnea GI: Denies: vomiting : Denies: difficulty voiding Musc: Reports: extremity pain PFSH ED PFSH: Medical History Peripheral neuropathy Social History Smoking and tobacco status: former smoker Alcohol intake: never Substance/Drug Use: former Physical Exam Const: COMMON NORMALS: no acute distress HENMT: COMMON NORMALS: normocephalic HEAD & SCALP: normocephalic Neck/C-Spine: COMMON NORMALS: full ROM Resp: COMMON NORMALS: normal respiratory effort Cardio: COMMON NORMALS: regular rate RATE: regular rate Back/Pelvis: COMMON NORMALS: thoracic and lumbar spine normal to inspection Extremity: LEFT LOWER EXTREMITY: Yes knee joint (Lateral knee joint line tenderness) Left knee: Yes inspection, Yes palpation and Yes ROM Skin: COMMON NORMALS: turgor normal GENERAL SKIN EXAM: turgor normal Course Vital Signs: Vital signs: Vital Signs Temperature 98.2 F 04/25/23 21:01 Pulse Rate 93 04/25/23 21:01 Respiratory Rate 18 04/25/23 21:01 Blood Pressure 107/70 04/25/23 21:01 Pulse Oximetry 97 04/25/23 21:01 Oxygen Delivery Me thod Room Air 04/25/23 21:01 MDM - Extremity (Nontraumatic) Medical Decision Making 48-year-old female comes in today with complaints of injury to the left knee. On exam patient has tenderness along the lateral joint line. No significant swelling or bruising is noted. Differential diagnosis includes but not limited to meniscal tear, ligament tear or sprain, contusion, dislocation, fracture. X- ray noted no significant abnormalities. Reviewed exam with patient with recommendations for follow-up with safety equipment testing specialist for further evaluation and treatment. Recommend using acetaminophen or ibuprofen for further pain. Recommend ice packs. Increasing activity as tolerated. Patient reported understanding agreed to plan. Discharge Plan Discharge Patient Disposition: Home Clinical Impression: Injury of knee, left Qualifiers: Encounter type: initial encounter Qualified Code(s): S89.92XA - Unspecified injury of left lower leg, initial encounter Condition: Stable Prescriptions: No Action (DME) Cock Up Splint See Rx Instructions .Route .MEDSUPPLY Qty: 1 0RF Rx Instructions: As directed diclofenac sodium 75 mg tablet,delayed release (DR/EC) 75 mg PO BID ergocalciferol (vitamin D2) 1,250 mcg (50,000 unit) capsule 1,250 mcg PO .WKLY montelukast 10 mg tablet 10 mg PO DAILY hydroxyzine HCl 25 mg tablet 25 mg PO TID PRN (Reason: Anxiety) pantoprazole 40 mg tablet,delayed release (DR/EC) 40 mg PO DAILY topiramate [Topamax] 50 mg tablet 150 mg PO BEDTIME magnesium oxide 400 mg magnesium tablet 400 mg PO DAILY Ozempic 0.25 mg or 0.5 mg(2 mg/1.5 mL) pen injector See Rx Instructions .ROUTE .COMPLEX Qty: 1.5 1RF Dose Instruction: inject 0.25mg SUBCUTANEOUSLY every week FOR FOUR weeks THEN 0.5mg every week Rx Instructions: inject 0.25mg SUBCUTANEOUSLY every week FOR FOUR weeks THEN 0.5mg every week levothyroxine 75 mcg tablet 75 mcg PO 1XD modafinil 200 mg tablet 200 mg PO DAILY hydrocodone-acetaminophen 5-325 mg tablet 1 tab PO Q8H PRN (Reason: pain (scale score 7-10)) Qty: 7 0RF Lidocaine Viscous 2 % solution 1 applic mucous membrane Q4H PRN (Reason: pain) Qty: 100 0RF amoxicillin-pot clavulanate 875-125 mg tablet 1 tab PO BID Qty: 14 0RF Discharge Orders: Discharge ED (Routine); Ordered 04/25/23 Ordered By: Owen Miller Referrals: Gopi Barrera MD [Primary Care Provider] - Discharge Diet: Usual diet Discharge Activity: Increase activity as tolerated Patient Instructions: Knee Pain (ED) Activity Restrictions/Additional Instructions: Increase activity as tolerated. Use acetaminophen and/or ibuprofen for pain. Drink plenty of water. Use ice or heat for further pain relief. Follow-up with orthopedist for further evaluation and treatment. Return to ED for new concerns. Coding Level of Care Code ED Subsurface Augmentee Elint Operator for Maritza Pickett
[2023-04-25] MEDS: HYDROcodone-acetaminophen 7.5-325 mg Tablet 1 TAB PO (21:21)
--- NOTE | 2023-04-26 09:32 | PC.SOCIAL ---
Addendum entered by Jaylene Álvarez 05/31/23 06:29: This appointment was cancelled Addendum entered by Jaylene Álvarez 05/11/23 14:17: Patient has a follow up appointment scheduled for Sunday, May 14, 2023 at 2:30 with at ortho. Original Note: Ortho Referral Referral sent to ortho at this time, clinic to contact patient with appt date/time.
== END 2023-04-25 21:43 | disposition home or self-care (01) ==
PROVIDERS: Emergency Provider Nurse Practitioner Family; PCP Family Medicine
DX: S89.92XA Unspecified injury of left lower leg, initial encounter (principal); X58.XXXA Exposure to other specified factors, initial encounter; Y93.B9 Activity, other involving muscle strengthening exercises
CPT/HCPCS: 73562; 99283

== ENCOUNTER 2023-09-24 16:03 | Emergency (ER) | payer MEDICARE, MEDICAID, SELFPAY ==
[2023-09-24] VITALS (7 sets, daily range): BP systolic 98–129; BP diastolic 56–83; PULSE 77–100; RESP 16; TEMP 37.1; O2SAT 97–100; BMI 34.3
[2023-09-24 17:37] LABS: Basophils % 0.4 %; Eosinophils # 0.2 10^3/uL (0.0-0.8); Eosinophils % 3.5 %; Hematocrit 43.2 % (36-47); Lymphocytes # 1.8 10^3/uL (0.8-4.8); Lymphocytes % 36.3 %; Mean Corpuscular HGB Conc 31.5 g/dL (30-55); Mean Corpuscular Hemoglobin 29.6 pg (27-33); Mean Corpuscular Volume 93.9 fl (85-98); Mean Platelet Volume 8.5 fL (7.4-10.4); Monocytes # 0.4 10^3/uL (0.2-0.9); Monocytes % 8.1 %; Neutrophils # 2.48 10^3/uL (1.8-7.7); Neutrophils % 51.5 %; Nucleated Red Blood Cells % 0 %; Platelet Count 327 10^3/cmm (157-399); Red Cell Distribution Width 13.8 % (12.1-15.1); White Blood Count 4.82 10^3/uL (3.29-11.43)
--- NOTE | 2023-09-24 17:49 | ED_ITS ---
Documented by User: Pascual Mills DO 10/03/23 07:33 HPI - Nausea/Vomiting/Diarrhea 2 General: Chief complaint: Nausea/Vomiting/Diarrhea Stated complaint: ND,abd pains Time Seen by Provider: 09/24/23 17:39 Source: patient Mode of arrival: ambulatory History of Present Illness: 48-year-old female who presents to the e mergency room with complaints of nausea and vomiting spitting on for last 3 days. 2 weeks ago she had COVID that seem to get better. Several other fellow members have been sick with similar symptoms. She has not had any hematochezia melena hematemesis or coffee-ground emesis. No dysuria urgency or frequency. MD elicited complaint: nausea and vomiting Onset (ago): day(s) (3) Associated nausea: Yes Associated abdominal pain: Yes Location of pain: None Radiation: diffuse Associated symtoms: Reports nausea; Denies chest pain or dysuria Review of Systems 2 Const: Denies: fever(s) or chills Card: Denies: chest pain Resp: Denies: dyspnea GI: Reports: nausea : Denies: dysuria, urinary frequency or urinary urgency Musc: Denies: neck pain or back pain Skin/Breast: Denies: rash PFSH ED 2 PFSH: Medical History Peripheral neuropathy Social History Smoking and tobacco/nicotine status: former use of tobacco/nicotine Alcohol intake: never Substance/Drug Use: former Physical Exam 2 Const: GENERAL APPEARANCE: cooperative and comfortable O RIENTATION/CONSCIOUSNESS: Yes awake, Yes oriented to person, Yes oriented to place and Yes oriented to time GI: COMMON NORMALS: Soft to palpation and No hepatosplenomegaly present A USCULTATION: Yes normoactive bowel sounds PALPATION: Yes Soft to palpation, No Tenderness to palpation present (GI), No Guarding due to palpation present (GI) and Yes No hepatosplenomegaly present Extremity: COMMON NORMALS: normal to inspection, capillary refill normal, no clubbing, cyanosis or edema, no calf tenderness and no pedal edema Neuro: SENSORIUM/ORIENTATION: Yes oriented to person, Yes oriented to place and Yes oriented to time Skin: COMMON NORMALS: no rashes or lesions noted GENERAL SKIN EXAM: no rashes or lesions noted Course 2 Vital Signs: Vital signs: Vital Signs Temperature 98.7 F 09/24/23 16:09 Pulse Rate 85 09/24/23 19:44 Respiratory Rate 16 09/24/23 16:09 Blood Pressure 101/63 09/24/23 23:48 Pulse Oximetry 98 09/24/23 23:48 Oxygen Delivery Me thod Room Air 09/24/23 20:29 MDM - Nausea/Vomiting/Diarrhea Medical Decision Making Care signed out to Dr. Sellers at change of shift. See final notes for diagnosis and disposition. Patient was given 1 L normal saline, 4 mg Zofran, lab work was obtained as well as a gallbladder ultrasound. All of which was essentially benign except elevated liver enzymes of AST 173 and AST 286. Patient was feeling much better she will be discharged home with a prescription of Zofran and be instructed to follow back up with her family practice physician for further evaluation testing. Lab Data 09/24/23 17:16 09/24/23 17:16 Radiology Impressions Gallbladder Ultrasound 09/24/23 18:06 IMPRESSION: Fatty liver. Laboratory Results WBC 4.82 10^3/uL (3.29-11.43) 09/24/23 17:16 RBC 4.60 10^6/uL (3.85-5.65) 09/24/23 17:16 Hgb 13.60 g/dL (11.27-16.99) 09/24/23 17:16 Hct 43.2 % (36-47) 09/24/23 17:16 MCV 93.9 fl (85-98) 09/24/23 17:16 MCH 29.6 pg (27-33) 09/24/23 17:16 MCHC 31.5 g/dL (30-55) 09/24/23 17:16 RDW 13.8 % (12.1-15.1) 09/24/23 17:16 Plt Count 327 10^3/cmm (157-399) 09/24/23 17:16 MPV 8.5 fL (7.4-10.4) 09/24/23 17:16 Neut % (Auto) 51.5 % 09/24/23 17:16 Lymph % (Auto) 36.3 % 09/24/23 17:16 [place] % (Auto) 8.1 % 09/24/23 17:16 Eos % (Auto) 3.5 % 09/24/23 17:16 Baso % (Auto) 0.4 % 09/24/23 17:16 Neut # (Auto) 2.48 10^3/uL (1.8-7.7) 09/24/23 17:16 Lymph # (Auto) 1.8 10^3/uL (0.8-4.8) 09/24/23 17:16 [place] # (Auto) 0.4 10^3/uL (0.2-0.9) 09/24/23 17:16 Eos # (Auto) 0.2 10^3/uL (0.0-0.8) 09/24/23 17:16 Baso # (Auto) 0.0 10^3/uL (0.0-0.1) 09/24/23 17:16 Nucleated RBC % (auto) 0 % 09/24/23 17:16 Nucleated RBCs # 0.0 /100WBC 09/24/23 17:16 Sodium 140 mmol/L (136-145) 09/24/23 17:16 Potassium 3.5 mmol/L (3.5-5.1) 09/24/23 17:16 Chloride 107 mmol/L (98-107) 09/24/23 17:16 Carbon Dioxide 24 mmol/L (22-29) 09/24/23 17:16 Anion Gap 12.5 (5-19) 09/24/23 17:16 BUN 10 mg/dL (6-20) 09/24/23 17:16 Creatinine 0.7 mg/dL (0.5-0.9) 09/24/23 17:16 GFR Calculation 89.3 mL/min (90-130) L 09/24/23 17:16 Glucose 84 mg/dL (65-115) 09/24/23 17:16 Calculated Osmolality 288 mOsm/kg (285-295) 09/24/23 17:16 Calcium 8.7 mg/dL (8.5-10.5) 09/24/23 17:16 Total Bilirubin 0.2 mg/dL (0.15-1.2) 09/24/23 17:16 AST 173 U/L (0-32) H 09/24/23 17:16 ALT 286 U/L (0-33) H 09/24/23 17:16 Alkaline Phosphatase 214 U/L (35-105) H 09/24/23 17:16 Total Protein 7.0 g/dL (6.6-8.7) 09/24/23 17:16 Albumin 3.9 g/dL (3.5-5.2) 09/24/23 17:16 Globulin 3.1 g/dL (1.3-4.6) 09/24/23 17:16 Lipase 35 U/L (13-60) 09/24/23 17:16 HCG, Qual Negative (Negative) 09/24/23 17:16 Urine Color Yellow (Yellow) 09/24/23 19:00 Urine Appearance Sl hazy (CLEAR) A 09/24/23 19:00 Urine pH 5 (5-7) 09/24/23 19:00 Ur Specific [place] 1.025 (1.005-1.030) 09/24/23 19:00 Urine Protein Neg (Negative) 09/24/23 19:00 Urine Glucose (UA) Norm (Normal) 09/24/23 19:00 Urine Ketones Negative (Negative) 09/24/23 19:00 Urine Blood Neg (Negative) 09/24/23 19:00 Urine Nitrate Negative (Negative) 09/24/23 19:00 Urine Bilirubin Neg (Negative) 09/24/23 19:00 Urine Urobilinogen Norm mg/dL (Negative) 09/24/23 19:00 Ur Leukocyte Esterase Negative (Negative) 09/24/23 19:00 Urine RBC Rare /hpf (0-2) 09/24/23 19:00 Urine WBC Rare /hpf (0-5) 09/24/23 19:00 Ur Squamous Epith Cells 10-15 /hpf (0-5) H 09/24/23 19:00 Amorphous Sediment Not Reportable 09/24/23 19:00 Urine Bacteria Trace /hpf (NONE) 09/24/23 19:00 Urine Mucus 2+ /hpf 09/24/23 19:00 Discharge Plan Discharge Patient Disposition: Home Clinical Impression: Dehydration, Gastroenteritis, Elevated liver enzymes Condition: Stable Prescriptions: New ondansetron HCl 4 mg tablet 4 mg PO Q8H PRN (Reason: nausea and vomiting) Qty: 10 0RF No Action (DME) Cock Up Splint See Rx Instructions .Route .MEDSUPPLY Qty: 1 0RF Rx Instructions: As directed diclofenac sodium 75 mg tablet,delayed release (DR/EC) 75 mg PO BID ergocalciferol (vitamin D2) 1,250 mcg (50,000 unit) capsule 1,250 mcg PO .WKLY montelukast 10 mg tablet 10 mg PO DAILY hydroxyzine HCl 25 mg tablet 25 mg PO TID PRN (Reason: Anxiety) pantoprazole 40 mg tablet,delayed release (DR/EC) 40 mg PO DAILY topiramate [Topamax] 50 mg tablet 150 mg PO BEDTIME magnesium oxide 400 mg magnesium tablet 400 mg PO DAILY Ozempic 0.25 mg or 0.5 mg(2 mg/1.5 mL) pen injector See Rx Instructions .ROUTE .COMPLEX Qty: 1.5 1RF Dose Instruction: inject 0.25mg SUBCUTANEOUSLY every week FOR FOUR weeks THEN 0.5mg every week Rx Instructions: inject 0.25mg SUBCUTANEOUSLY every week FOR FOUR weeks THEN 0.5mg every week levothyroxine 75 mcg tablet 75 mcg PO 1XD modafinil 200 mg tablet 200 mg PO DAILY hydrocodone-acetaminophen 5-325 mg tablet 1 tab PO Q8H PRN (Reason: pain (scale score 7-10)) Qty: 7 0RF Lidocaine Viscous 2 % solution 1 applic mucous membrane Q4H PRN (Reason: pain) Qty: 100 0RF amoxicillin-pot clavulanate 875-125 mg tablet 1 tab PO BID Qty: 14 0RF Discharge Orders: Discharge ED (Routine); Ordered 09/24/23 Ordered By: Carlito Sellers Referrals: Gopi Barrera MD [Primary Care Provider] - 1 week Patient Instructions: Abdominal Pain - Adult, Gastroenteritis (ED) Activity Restrictions/Additional Instructions: Please take all your medicine as prescribed please push clear liquids and then advance diet as tolerated please follow-up with your family practice physician within the next 7 to 10 days for further evaluation and testing. Coding Level of Care Code ED [facility] [employer] Manager for [facility] Documented by User: Carlito Sellers DO 09/24/23 23:37 HPI - Nausea/Vomiting/Diarrhea 2 General: Chief complaint: Nausea/Vomiting/Diarrhea Stated complaint: ND,abd pains Time Seen by Provider: 09/24/23 17:39 PFSH ED 2 PFSH: Medical History Peripheral neuropathy Social History Smoking and tobacco/nicotine status: former use of tobacco/nicotine Alcohol intake: never Substance/Drug Use: former Physical Exam 2 Const: COMMON NORMALS: no acute distress, average body habitus, patient oriented x3, no limitations, healthy appearing, alert and well nourished HENMT: COMMON NORMALS: normocephalic, atraumatic, hearing grossly normal bilaterally, external ears normal, Normal external nose present, moist oral mucous membranes and oropharynx normal HEAD & SCALP: normocephalic and atraumatic NOSE: Normal external nose present EXTERNAL EAR: Yes external ears normal Neck/C-Spine: COMMON NORMALS: no JVD Chest: COMMONS NORMALS: normal inspection of the chest and normal palpation of entire chest wall Resp: COMMON NORMALS: normal respiratory effort, No retractions, No use of accessory muscles and clear to auscultation bilaterally AUSCULTATION: clear to auscultation bilaterally Cardio: COMMON NORMALS: no JVD, regular rate, regular rhythm, S1 normal heart sound present, S2 normal heart sound present, No gallops present (Cardio), No clicks present (Cardio), No murmurs present (Cardio) and No rub (Cardio) R ATE: regular rate RHYTHM: regular rhythm HEART SOUNDS: S1 normal heart sound present and S2 normal heart sound present GI: COMMON NORMALS: Normal to inspection, nondistended, normoactive bowel sounds present Neuro: COMMON NORMALS: patient oriented x3 SENSORIUM/ORIENTATION: Yes alert Course 2 Vital Signs: Vital signs: Vital Signs Temperature 98.7 F 09/24/23 16:09 Pulse Rate 85 09/24/23 19:44 Respiratory Rate 16 09/24/23 16:09 Blood Pressure 101/63 09/24/23 23:48 Pulse Oximetry 98 09/24/23 23:48 Oxygen Delivery Me thod Room Air 09/24/23 20:29 MDM - Nausea/Vomiting/Diarrhea Medical Decision Making Patient was given 1 L normal saline, 4 mg Zofran, lab work was obtained as well as a gallbladder ultrasound. All of which was essentially benign except elevated liver enzymes of AST 173 and AST 286. Patient was feeling much better she will be discharged home with a prescription of Zofran and be instructed to follow back up with her family practice physician for further evaluation testing. Lab Data 09/24/23 17:16 09/24/23 17:16 Radiology Impressions Gallbladder Ultrasound 09/24/23 18:06 IMPRESSION: Fatty liver. Laboratory Results WBC 4.82 10^3/uL (3.29-11.43) 09/24/23 17:16 RBC 4.60 10^6/uL (3.85-5.65) 09/24/23 17:16 Hgb 13.60 g/dL (11.27-16.99) 09/24/23 17:16 Hct 43.2 % (36-47) 09/24/23 17:16 MCV 93.9 fl (85-98) 09/24/23 17:16 MCH 29.6 pg (27-33) 09/24/23 17:16 MCHC 31.5 g/dL (30-55) 09/24/23 17:16 RDW 13.8 % (12.1-15.1) 09/24/23 17:16 Plt Count 327 10^3/cmm (157-399) 09/24/23 17:16 MPV 8.5 fL (7.4-10.4) 09/24/23 17:16 Neut % (Auto) 51.5 % 09/24/23 17:16 Lymph % (Auto) 36.3 % 09/24/23 17:16 [place] % (Auto) 8.1 % 09/24/23 17:16 Eos % (Auto) 3.5 % 09/24/23 17:16 Baso % (Auto) 0.4 % 09/24/23 17:16 Neut # (Auto) 2.48 10^3/uL (1.8-7.7) 09/24/23 17:16 Lymph # (Auto) 1.8 10^3/uL (0.8-4.8) 09/24/23 17:16 [place] # (Auto) 0.4 10^3/uL (0.2-0.9) 09/24/23 17:16 Eos # (Auto) 0.2 10^3/uL (0.0-0.8) 09/24/23 17:16 Baso # (Auto) 0.0 10^3/uL (0.0-0.1) 09/24/23 17:16 Nucleated RBC % (auto) 0 % 09/24/23 17:16 Nucleated RBCs # 0.0 /100WBC 09/24/23 17:16 Sodium 140 mmol/L (136-145) 09/24/23 17:16 Potassium 3.5 mmol/L (3.5-5.1) 09/24/23 17:16 Chloride 107 mmol/L (98-107) 09/24/23 17:16 Carbon Dioxide 24 mmol/L (22-29) 09/24/23 17:16 Anion Gap 12.5 (5-19) 09/24/23 17:16 BUN 10 mg/dL (6-20) 09/24/23 17:16 Creatinine 0.7 mg/dL (0.5-0.9) 09/24/23 17:16 GFR Calculation 89.3 mL/min (90-130) L 09/24/23 17:16 Glucose 84 mg/dL (65-115) 09/24/23 17:16 Calculated Osmolality 288 mOsm/kg (285-295) 09/24/23 17:16 Calcium 8.7 mg/dL (8.5-10.5) 09/24/23 17:16 Total Bilirubin 0.2 mg/dL (0.15-1.2) 09/24/23 17:16 AST 173 U/L (0-32) H 09/24/23 17:16 ALT 286 U/L (0-33) H 09/24/23 17:16 Alkaline Phosphatase 214 U/L (35-105) H 09/24/23 17:16 Total Protein 7.0 g/dL (6.6-8.7) 09/24/23 17:16 Albumin 3.9 g/dL (3.5-5.2) 09/24/23 17:16 Globulin 3.1 g/dL (1.3-4.6) 09/24/23 17:16 Lipase 35 U/L (13-60) 09/24/23 17:16 HCG, Qual Negative (Negative) 09/24/23 17:16 Urine Color Yellow (Yellow) 09/24/23 19:00 Urine Appearance Sl hazy (CLEAR) A 09/24/23 19:00 Urine pH 5 (5-7) 09/24/23 19:00 Ur Specific [place] 1.025 (1.005-1.030) 09/24/23 19:00 Urine Protein Neg (Negative) 09/24/23 19:00 Urine Glucose (UA) Norm (Normal) 09/24/23 19:00 Urine Ketones Negative (Negative) 09/24/23 19:00 Urine Blood Neg (Negative) 09/24/23 19:00 Urine Nitrate Negative (Negative) 09/24/23 19:00 Urine Bilirubin Neg (Negative) 09/24/23 19:00 Urine Urobilinogen Norm mg/dL (Negative) 09/24/23 19:00 Ur Leukocyte Esterase Negative (Negative) 09/24/23 19:00 Urine RBC Rare /hpf (0-2) 09/24/23 19:00 Urine WBC Rare /hpf (0-5) 09/24/23 19:00 Ur Squamous Epith Cells 10-15 /hpf (0-5) H 09/24/23 19:00 Amorphous Sediment Not Reportable 09/24/23 19:00 Urine Bacteria Trace /hpf (NONE) 09/24/23 19:00 Urine Mucus 2+ /hpf 09/24/23 19:00 All radiology interpretation(s) finalized by discharge Discharge Plan Discharge Patient Disposition: Home Clinical Impression: Dehydration, Gastroenteritis, Elevated liver enzymes Condition: Stable Prescriptions: New ondansetron HCl 4 mg tablet 4 mg PO Q8H PRN (Reason: nausea and vomiting) Qty: 10 0RF No Action (DME) Cock Up Splint See Rx Instructions .Route .MEDSUPPLY Qty: 1 0RF Rx Instructions: As directed diclofenac sodium 75 mg tablet,delayed release (DR/EC) 75 mg PO BID ergocalciferol (vitamin D2) 1,250 mcg (50,000 unit) capsule 1,250 mcg PO .WKLY montelukast 10 mg tablet 10 mg PO DAILY hydroxyzine HCl 25 mg tablet 25 mg PO TID PRN (Reason: Anxiety) pantoprazole 40 mg tablet,delayed release (DR/EC) 40 mg PO DAILY topiramate [Topamax] 50 mg tablet 150 mg PO BEDTIME magnesium oxide 400 mg magnesium tablet 400 mg PO DAILY Ozempic 0.25 mg or 0.5 mg(2 mg/1.5 mL) pen injector See Rx Instructions .ROUTE .COMPLEX Qty: 1.5 1RF Dose Instruction: inject 0.25mg SUBCUTANEOUSLY every week FOR FOUR weeks THEN 0.5mg every week Rx Instructions: inject 0.25mg SUBCUTANEOUSLY every week FOR FOUR weeks THEN 0.5mg every week levothyroxine 75 mcg tablet 75 mcg PO 1XD modafinil 200 mg tablet 200 mg PO DAILY hydrocodone-acetaminophen 5-325 mg tablet 1 tab PO Q8H PRN (Reason: pain (scale score 7-10)) Qty: 7 0RF Lidocaine Viscous 2 % solution 1 applic mucous membrane Q4H PRN (Reason: pain) Qty: 100 0RF amoxicillin-pot clavulanate 875-125 mg tablet 1 tab PO BID Qty: 14 0RF Discharge Orders: Discharge ED (Routine); Ordered 09/24/23 Ordered By: Carlito Sellers Referrals: Gopi Barrera MD [Primary Care Provider] - 1 week Patient Instructions: Abdominal Pain - Adult, Gastroenteritis (ED) Activity Restrictions/Additional Instructions: Please take all your medicine as prescribed please push clear liquids and then advance diet as tolerated please follow-up with your family practice physician within the next 7 to 10 days for further evaluation and testing. Coding Level of Care Code ED [facility] Manager for Maritza Pickett
[2023-09-24 17:53] LABS: Alanine Aminotransferase 286 U/L (0-33); Albumin Level 3.9 g/dL (3.5-5.2); Alkaline Phosphatase 214 U/L (35-105); Anion Gap 12.5 (5-19); Aspartate Amino Transferase 173 U/L (0-32); Blood Urea Nitrogen 10 mg/dL (6-20); Calcium 8.7 mg/dL (8.5-10.5); Carbon Dioxide 24 mmol/L (22-29); Chloride 107 mmol/L (98-107); Globulin 3.1 g/dL (1.3-4.6); Glomerular Filtration Rate 89.3 mL/min (90-130); Glucose 84 mg/dL (65-115); Lipase 35 U/L (13-60); Osmolality Calculated 288 mOsm/kg (285-295); Potassium 3.5 mmol/L (3.5-5.1); Sodium 140 mmol/L (136-145); Total Bilirubin 0.2 mg/dL (0.15-1.2)
[2023-09-24 18:00] LABS: HCG, Serum Qual Negative (Negative)
--- NOTE | 2023-09-24 18:03 | PC.NURSE ---
NURSE ASSUMED CARE AT 1542
--- NOTE | 2023-09-24 18:06 | USR_ITS ---
PROCEDURE INFORMATION: Exam: US Abdomen, Limited; Right Upper Quadrant Exam date and time: 09/24/2023 7:16 PM Age: 48 years old Clinical indication: Nausea and vomiting; Prior surgery; Surgery date: 6+ months; Surgery type: [place] 2007; Patient HX: Diffuse abdominal pain today. ; Additional info: Abd pain, n/v TECHNIQUE: Imaging protocol: Real time ultrasound of the abdomen with image documentation. Limited exam focused on the right upper quadrant. COMPARISON: CT abdomen pelvis con [id number] 12/04/2016 3:35 PM FINDINGS: Liver: Mildly echogenic, suggesting fatty infiltration. Gallbladder: Surgically absent. Biliary ducts: Normal. No stones. No dilation. Pancreas: Unremarkable as visualized. Right kidney: No mass. No definite stones. No hydronephrosis. US/US gall bladder [id number] IMPRESSION: Fatty liver.
[2023-09-24] MEDS: sodium chloride 0.9% 1,000 ML 999 ML IV ×2 (18:45→22:43)
[2023-09-24 19:15] LABS: Specific Gravity, Urine 1.025 (1.005-1.030); Urine Appearance SL Hazy (CLEAR); Urine Color Yellow (Yellow); pH Urine 5 (5-7)
[2023-09-24 19:16] LABS: Add Urine Microscopic? YES; Bilirubin Urine Neg (Negative); Blood Urine Neg (Negative); Glucose Urine UA Norm (Normal); Ketones Urine Negative (Negative); Leukocyte Esterase Urine Negative (Negative); Nitrate Urine Negative (Negative); Protein Urine Neg (Negative); Urobilinogen Urine Norm (Negative)
[2023-09-24 19:21] LABS: Add Urine Culture? No; Bacteria Urine TRACE /hpf; Mucus Urine 2+ /hpf; RBC Urine RARE /hpf (0-2); WBC Urine RARE /hpf (0-5)
[2023-09-24] MEDS: ondansetron 2 mg/ML SDV 2 mL 4 MG IVP (22:43)
== END 2023-09-24 23:49 | disposition home or self-care (01) ==
PROVIDERS: Physician Assistant; Emergency Provider Family Medicine; PCP Family Medicine
DX: K52.9 Noninfective gastroenteritis and colitis, unspecified (principal); E86.0 Dehydration; R74.8 Abnormal levels of other serum enzymes; Z87.891 Personal history of nicotine dependence
CPT/HCPCS: 36415; 76705; 80053; 81001; 83690; 84703; 85025; 96361; 96374; 99284; J2405; J7030

== ENCOUNTER → 2023-10-06 18:24 | Outpatient (BNVA) | payer MEDICARE, MEDICAID, SELFPAY | PROVIDERS: PCP Family Medicine | DX: R39.9 Unspecified symptoms and signs involving the genitourinary system (principal) | CPT/HCPCS: 81000; 87086 ==

== ENCOUNTER 2024-02-29 23:07 | Emergency (ER) | payer MEDICARE, MEDICAID, SELFPAY ==
[2024-02-29 23:10] VITALS: BP 153/81; PULSE 99; RESP 15; TEMP 36.8; O2SAT 99
[2024-03-01] MEDS: BUPivacaine 0.5% INJ 10 mL INJECTION (00:25)
[2024-03-01 00:58] VITALS: PULSE 80; RESP 14; O2SAT 98
--- NOTE | 2024-03-01 00:58 | ED_ITS ---
Documented by User: ZINA Minor 03/01/24 13:03 HPI - Dental/Oral General: Chief complaint: Dental/Oral Stated complaint: Mouth Pain Time Seen by Provider: 03/01/24 00:00 Source: patient Mode of arrival: ambulatory Limitations: no limitations History of Present Illness: Patient is a 49-year-old female presenting to the emergency department complaining of left lower dental pain for the past couple weeks. Initially she was seen by dentist on 02/17 for a tooth/root removal. She was again seen this prior Sunday for increased pain, where she had a root cleaned out. She was told the pain was probably due to dry socket and that she was prescribed amoxicillin prophylactically for any dental abscess. She has since finished the amoxicillin and is still reporting consistent pain. She is also is noting that she has not been sleeping due to the pain. She notes the pain is starting to spread towards her left ear, however she is denying any drainage, fevers, or any other symptoms at this time. MD Complaint: tooth pain Onset (ago): week(s) Duration: constant Severity: severe Relieving factors: nothing Exacerbating factors: chewing and cold Context: history of dental caries Associated symptoms: Reports ear or mastoid pain; Denies fever(s) Treatment prior to arrival: other (abx) Review of Systems General: Reports: 10 or more systems reviewed and unremarkable except in HPI and below Const: Denies: fever(s), chills or fatigue Eyes: Denies: change in vision ENMT: Reports: mouth pain, dental pain, ear or mastoid pain and sinus pain; Denies: throat pain Card: Denies: chest pain, palpitations, swelling of feet/ankles or lightheadedness Resp: Denies: dyspnea, productive cough or wheezing GI: Denies: abdominal pain, nausea, vomiting, diarrhea or constipation : Denies: flank pain, difficulty voiding, dysuria or urinary frequency Musc: Denies: neck pain, back pain or joint pain Skin/Breast: Denies: rash Neuro: Denies: headache(s), numbness in extremities or weakness in extremities PFS ED PFSH: Medical History Peripheral neuropathy Social History Smoking and tobacco/nicotine status: former use of tobacco/nicotine Alcohol intake: never Substance/Drug Use: former Physical Exam Const: COMMON NORMALS: no acute distress and healthy appearing GENERAL APPEARANCE: cooperative, comfortable and well developed HENMT: COMMON NORMALS: normocephalic, atraumatic, hearing grossly normal bilaterally, external ears normal, EAC's normal, TM's normal bilaterally, Normal external nose present and Normal nasal mucous membranes and turbinates present HEAD & SCALP: normal to inspection, normocephalic and atraumatic FACE & SINUS: normal facial exam and sinuses nontender NOSE: Normal external nose present, Normal nares present, No nasal polyps present and Normal nasal mucous membranes and turbinates present EXTERNAL EAR: Yes external ears normal EXTERNAL AUDITORY CANAL: EAC's normal TYMPANIC MEMBRANE: TM's normal bilaterally MOUTH: Normal oral and palatal mucosa present THROAT: posterior oropharynx normal and tonsils normal OTHER: Moderately to severe tender to palpation of the left lower jaw extending towards the left ear. No significant facial edema noted. Left lower dentition shows evidence of recent tooth/root extraction. There is no active drainage, edema, or surrounding erythema. Eye: COMMON NORMALS: EOMs intact bilaterally, conjunctivae normal and normal visual menendez by confrontation GENERAL EYE: appearance normal, both eyes and all related structures CONJUNCTIVA: Yes conjunctivae normal Neck/C-Spine: COMMON NORMALS: full ROM, no lymphadenopathy, supple and no meningeal signs GENERAL: Yes normal visual inspection Chest: COMMONS NORMALS: normal inspection of the chest Resp: COMMON NORMALS: normal respiratory effort and clear to auscultation bilaterally EFFORT & INSPECTION: Yes able to speak in complete sentences AUSCULTATION: clear to auscultation bilaterally Cardio: COMMON NORMALS: regular rate, regular rhythm, S1 normal heart sound present and S2 normal heart sound present RATE: regular rate RHYTHM: regular rhythm HEART SOUNDS: S1 normal heart sound present, S2 normal heart sound present, no gallops, no murmurs and no rubs Extremity: COMMON NORMALS: normal to inspection, full ROM and capillary refill normal Neuro: MENINGEAL SIGNS: Yes no meningeal signs Skin: COMMON NORMALS: no rashes or lesions noted GENERAL SKIN EXAM: no rashes or lesions noted Procedures Nerve Block Nerve Block 1: Local Anesthetic: bupivacaine 0.5% Amount of anesthesia used (mL): 7 Side: left Intraoral Nerve Block: mental Procedure Successful: Yes Patient Tolerated Procedure: well Complications: none Additional Comments: Consent for operation or procedure: Risks and benefits discussed with patient and consent obtained Anesthesia: 7 ml of 0.5% Bupivicaine The distribution of the mental nerve was identified. Bupivacaine was injected into that region. A short time later adequate analgesia was obtained. Estimated Blood Loss: minimal Complications: The patient tolerated the procedure well without complications. Course Vital Signs: Vital signs: Vital Signs Temperature 98.2 F 02/29/24 23:10 Pulse Rate 80 03/01/24 00:58 Respiratory Rate 14 03/01/24 00:58 Blood Pressure 153/81 02/29/24 23:10 Pulse Oximetry 98 03/01/24 00:58 Oxygen Delivery Me thod Room Air 02/29/24 23:10 MDM - Dental/Oral Medical Decision Making Patient seen for dental pain she has been having for the past couple weeks. She has seen the dentist twice. Recently finished amoxicillin for prophylactic treatment of dental abscess. Vitals on arrival normal as patient was afebrile. Examination revealed that she was moderately to severe tender to palpation of the left lower dentition with extension towards the left ear. I offered patient a shot of bupivacaine for analgesia, to which she oblige his. See procedure note. She notes that her pain is absent and she will follow-up with dentist on Sunday for reevaluation. There are no signs of infection as I do not believe she is dealing with a dental abscess, more of etiology being post operative from root extraction/tooth removal. Reasons to return are discussed including any signs of infection. She agrees. No radiology studies performed this visit Discharge Plan Discharge Patient Disposition: Home Clinical Impression: Pain, dental Condition: Stable Prescriptions: New prednisone 20 mg tablet 60 mg PO ONCE 5 Days Qty: 15 0RF No Action (DME) Cock Up Splint See Rx Instructions .Route .MEDSUPPLY Qty: 1 0RF Rx Instructions: As directed diclofenac sodium 75 mg tablet,delayed release (DR/EC) 75 mg PO BID ergocalciferol (vitamin D2) 1,250 mcg (50,000 unit) capsule 1,250 mcg PO .WKLY hydroxyzine HCl 25 mg tablet 25 mg PO TID PRN (Reason: Anxiety) pantoprazole 40 mg tablet,delayed release (DR/EC) 40 mg PO DAILY topiramate [Topamax] 50 mg tablet 150 mg PO BEDTIME magnesium oxide 400 mg magnesium tablet 400 mg PO DAILY ciprofloxacin HCl [Cipro] 500 mg tablet 500 mg PO Q12H 10 Days Qty: 20 0RF phenazopyridine [Pyridium] 200 mg tablet 200 mg PO Q8H PRN (Reason: pain) Qty: 9 0RF Ozempic 0.25 mg or 0.5 mg(2 mg/1.5 mL) pen injector See Rx Instructions .ROUTE .COMPLEX Qty: 1.5 1RF Dose Instruction: inject 0.25mg SUBCUTANEOUSLY every week FOR FOUR weeks THEN 0.5mg every week Rx Instructions: inject 0.25mg SUBCUTANEOUSLY every week FOR FOUR weeks THEN 0.5mg every week levothyroxine 75 mcg tablet 75 mcg PO 1XD modafinil 200 mg tablet 200 mg PO DAILY hydrocodone-acetaminophen 5-325 mg tablet 1 tab PO Q8H PRN (Reason: pain (scale score 7-10)) Qty: 7 0RF Lidocaine Viscous 2 % solution 1 applic mucous membrane Q4H PRN (Reason: pain) Qty: 100 0RF ondansetron HCl 4 mg tablet 4 mg PO Q8H PRN (Reason: nausea and vomiting) Qty: 10 0RF Discharge Orders: Discharge ED (Routine); Ordered 03/01/24 Ordered By: Maicol Hamilton Referrals: Gopi Barrera MD [Primary Care Provider] - Discharge Diet: Usual diet Discharge Activity: Increase activity as tolerated Patient Instructions: Toothache (ED) Activity Restrictions/Additional Instructions: Prednisone as prescribed. Follow-up with dentist as instructed. Return if you develop any new or concerning symptoms. Coding Level of Care Code ED Stock Crane Operator for Chg Fwd Documented by User: Pascual Mills DO 03/05/24 09:05 HPI - Dental/Oral General: Chief complaint: Dental/Oral Stated complaint: Mouth Pain Time Seen by Provider: 03/01/24 00:00 [facility] ED PFSH: Medical History Peripheral neuropathy Social History Smoking and tobacco/nicotine status: former use of tobacco/nicotine Alcohol intake: never Substance/Drug Use: former Course Vital Signs: Vital signs: Vital Signs Temperature 98.2 F 02/29/24 23:10 Pulse Rate 80 03/01/24 00:58 Respiratory Rate 14 03/01/24 00:58 Blood Pressure 153/81 02/29/24 23:10 Pulse Oximetry 98 03/01/24 00:58 Oxygen Delivery Me thod Room Air 02/29/24 23:10 MDM - Dental/Oral Medical Decision Making Patient seen for dental pain she has been having for the past couple weeks. She has seen the dentist twice. Recently finished amoxicillin for prophylactic treatment of dental abscess. Vitals on arrival normal as patient was afebrile. Examination revealed that she was moderately to severe tender to palpation of the left lower dentition with extension towards the left ear. I offered patient a shot of bupivacaine for analgesia, to which she oblige his. See procedure note. She notes that her pain is absent and she will follow-up with dentist on Sunday for reevaluation. There are no signs of infection as I do not believe s he is dealing with a dental abscess, more of etiology being post operative from root extraction/tooth removal. Reasons to return are discussed including any signs of infection. She agrees. Chart reviewed Discharge Plan Discharge Patient Disposition: Home Clinical Impression: Pain, dental Condition: Stable Prescriptions: New prednisone 20 mg tablet 60 mg PO ONCE 5 Days Qty: 15 0RF No Action (DME) Cock Up Splint See Rx Instructions .Route .MEDSUPPLY Qty: 1 0RF Rx Instructions: As directed diclofenac sodium 75 mg tablet,delayed release (DR/EC) 75 mg PO BID ergocalciferol (vitamin D2) 1,250 mcg (50,000 unit) capsule 1,250 mcg PO .WKLY hydroxyzine HCl 25 mg tablet 25 mg PO TID PRN (Reason: Anxiety) pantoprazole 40 mg tablet,delayed release (DR/EC) 40 mg PO DAILY topiramate [Topamax] 50 mg tablet 150 mg PO BEDTIME magnesium oxide 400 mg magnesium tablet 400 mg PO DAILY ciprofloxacin HCl [Cipro] 500 mg tablet 500 mg PO Q12H 10 Days Qty: 20 0RF phenazopyridine [Pyridium] 200 mg tablet 200 mg PO Q8H PRN (Reason: pain) Qty: 9 0RF Ozempic 0.25 mg or 0.5 mg(2 mg/1.5 mL) pen injector See Rx Instructions .ROUTE .COMPLEX Qty: 1.5 1RF Dose Instruction: inject 0.25mg SUBCUTANEOUSLY every week FOR FOUR weeks THEN 0.5mg every week Rx Instructions: inject 0.25mg SUBCUTANEOUSLY every week FOR FOUR weeks THEN 0.5mg every week levothyroxine 75 mcg tablet 75 mcg PO 1XD modafinil 200 mg tablet 200 mg PO DAILY hydrocodone-acetaminophen 5-325 mg tablet 1 tab PO Q8H PRN (Reason: pain (scale score 7-10)) Qty: 7 0RF Lidocaine Viscous 2 % solution 1 applic mucous membrane Q4H PRN (Reason: pain) Qty: 100 0RF ondansetron HCl 4 mg tablet 4 mg PO Q8H PRN (Reason: nausea and vomiting) Qty: 10 0RF Discharge Orders: Discharge ED (Routine); Ordered 03/01/24 Ordered By: Maicol Hamilton Referrals: Gopi Barrera MD [Primary Care Provider] - Discharge Diet: Usual diet Discharge Activity: Increase activity as tolerated Patient Instructions: Toothache (ED) Activity Restrictions/Additional Instructions: Prednisone as prescribed. Follow-up with dentist as instructed. Return if you develop any new or concerning symptoms. Coding Level of Care Code ED Stock Crane Operator for Maritza Pickett
== END 2024-03-01 00:53 | disposition home or self-care (01) ==
PROVIDERS: Emergency Provider Physician Assistant; PCP Family Medicine
DX: K08.89 Other specified disorders of teeth and supporting structures (principal); Z79.85 Long-term (current) use of injectable non-insulin antidiabetic drugs; Z87.891 Personal history of nicotine dependence
CPT/HCPCS: 64450; 99283; J3490

== ENCOUNTER → 2024-10-28 15:47 | Outpatient (BNVA) | payer MEDICARE, MEDICAID, SELFPAY | PROVIDERS: PCP Family Medicine; Visit Provider Registered Nurse Neonatal Intensive Care | DX: Z20.828 Contact with and (suspected) exposure to other viral communicable diseases (principal) | CPT/HCPCS: 87400 ==

== ENCOUNTER 2024-11-13 09:14 | Outpatient (CLI) | payer MEDICARE, MEDICAID, SELFPAY ==
--- NOTE | 2024-11-13 09:30 | CT_ITS ---
WS: [id number] CT NECK WITH CONTRAST HISTORY: M54.2 CERVICALGIA, palpable area RIGHT neck. TECHNIQUE: Contiguous 2 mm axial images are performed through the neck with intravenous contrast. Sag ittal and coronal reformats are also submitted. All CT scans at [facility] use at least one o f these dose optimization techniques: automated exposure control; mA and/or kV adjustment per patient size (includes targeted exams where dose is matched to clinical indication); or iterative reconstruc tion. CONTRAST: CONTRAST: Omnipaque 350; 100 mL IV. DLP: 181.21 mGy.cm COMPARISON: None available. Marker placed over the palpable nodule in the RIGHT neck corresponds to the external jugular vein. Th is is a normal-appearing vein with enhancement. The adjacent sternocleidomastoid muscle is normal. Th ere are a few small lymph nodes along the cervical chain. Nasopharynx, oropharynx, hypopharynx and larynx are unremarkable. No soft tissue masses or abnormal e nhancement. Torus tubarius and fossa of Rosenmuller and parapharyngeal fat are normal. No significant lymphadenopathy is identified. Thyroid gland and salivary glands are normally enhancing with no masses. No osseous abnormalities. Visualized portions of the skull base demonstrate no abnormalities. Orbits and globes are within norm al limits. No soft tissue masses. Visualized paranasal sinuses and mastoid air cells are normal. Lung apices are clear. Aberrant RIGHT subclavian artery passes posterior to the trachea and esophagus to the aorta. CT/CT neck w con* [id number] IMPRESSION: 1. Palpable area along the RIGHT neck corresponds to a normal-appearing seamless tube drawer al jugular vein. No adjacent mass. 2. Bilateral cervical chain lymph nodes are small caliber and normal. 3. Aberrant RIGHT subclavian vein.
[2024-11-13] MEDS: iohexol 350 mg/mL 500 mL Btl (per mL) IV (10:12)
== END 2024-11-13 09:15 | disposition home or self-care (01) ==
LOC: RAD 09:15
PROVIDERS: PCP Family Medicine; Visit Provider Physician Assistant Medical
DX: M54.2 Cervicalgia (principal); R93.89 Abnormal findings on diagnostic imaging of other specified body structures
CPT/HCPCS: 70491

== ENCOUNTER 2025-01-22 14:29 | Outpatient (CLI) | payer MEDICAID, MEDICARE, SELFPAY ==
--- NOTE | 2025-01-22 | MM_ITS ---
WS: [id number] BILATERAL 3D TOMOSYNTHESIS DIGITAL DIAGNOSTIC MAMMOGRAPHY WITH CAD CLINICAL INFORMATION: RIGHT BREAST LUMP HISTORY: RIGHT breast lump COMPARISON: 2021 TECHNIQUE: Bilateral CC, MLO, and ML views. FINDINGS: Scattered fibroglandular densities bilaterally. Palpable marker outer RIGHT breast. Normal underlying parenchymal tissue. Ultrasound of this area described below. Incidental calcifications LEFT breast. ULTRASOUND BREAST RIGHT TECHNIQUE: Ultrasound right breast focused area of concern. CLINICAL INFORMATION: RIGHT BREAST LUMP FINDINGS: Ultrasound RIGHT breast area of concern at the 10:00 position 3 cm from the nipple. Tiny incidental cyst in this location measuring approximately 4 x 4 x 2 mm. I In addition the 1:00 3 cm from the nipple area was imaged and also shows a tiny incidental cystic lesion unchanged from the prior studies measuring 5 x 2 x 3 mm. MM/MM diag BI tomosynthesis [id number] IMPRESSION: DENSITY: There are scattered areas of fibroglandular density. BI-RADS: 2 - Benign. FOLLOW UP: 1 Year Follow-up Recommend return to annual screening mammography.
--- NOTE | 2025-01-22 14:47 | US_ITS ---
WS: [id number] BILATERAL 3D TOMOSYNTHESIS DIGITAL DIAGNOSTIC MAMMOGRAPHY WITH CAD CLINICAL INFORMATION: RIGHT BREAST LUMP HISTORY: RIGHT breast lump COMPARISON: 2021 TECHNIQUE: Bilateral CC, MLO, and ML views. FINDINGS: Scattered fibroglandular densities bilaterally. Palpable marker outer RIGHT breast. Normal underlying parenchymal tissue. Ultrasound of this area described below. Incidental calcifications LEFT breast. ULTRASOUND BREAST RIGHT TECHNIQUE: Ultrasound right breast focused area of concern. CLINICAL INFORMATION: RIGHT BREAST LUMP FINDINGS: Ultrasound RIGHT breast area of concern at the 10:00 position 3 cm from the nipple. Tiny incidental cyst in this location measuring approximately 4 x 4 x 2 mm. I In addition the 1:00 3 cm from the nipple area was imaged and also shows a tiny incidental cystic lesion unchanged from the prior studies measuring 5 x 2 x 3 mm. US/US breast RT limited* [id number] IMPRESSION: DENSITY: There are scattered areas of fibroglandular density. BI-RADS: 2 - Benign. FOLLOW UP: 1 Year Follow-up Recommend return to annual screening mammography.
== END 2025-01-22 14:30 | disposition home or self-care (01) ==
LOC: RAD 14:32
PROVIDERS: PCP Family Medicine; Visit Provider Family Medicine
DX: N63.11 Unspecified lump in the right breast, upper outer quadrant (principal); R92.323 Mammographic fibroglandular density, bilateral breasts; R92.1 Mammographic calcification found on diagnostic imaging of breast
CPT/HCPCS: 76642; 77062; G0279

== ENCOUNTER 2025-04-02 11:17 | Emergency (ER) | payer MEDICARE, SELFPAY ==
[2025-04-02 11:20] VITALS: BP 101/68; PULSE 117; RESP 17; TEMP 36.9; O2SAT 97; BMI 29.2
--- NOTE | 2025-04-02 11:32 | W.ED.NAVMDI ---
HPI - Nausea/Vomiting/Diarrhea General: Chief complaint: Nausea/Vomiting/Diarrhea Stated complaint: n/d x5 days Time Seen by Provider: 04/02/25 11:25 History of Present Illness: 50-year-old female presents emergency room complains of nausea and vomiting for the last 5 days. Patient is on a GLP-1 for weight loss. In addition of that she has had diarrhea she denies any hematochezia hematemesis coffee-ground emesis. Patient patient denies any chest pain. She has not recently been on any oral antibiotics. Associated symtoms: Denies chest pain or dysuria Related Data Home Medications ?Medication ?Instructions ?Recorded ?Confirmed ergocalciferol (vitamin D2) 1,250 1,250 mcg PO .WKLY 04/20/22 10/28/24 mcg (50,000 unit) capsule magnesium oxide 400 mg PO DAILY 04/20/22 10/28/24 pantoprazole 40 mg tablet,delayed 40 mg PO DAILY 04/20/22 10/28/24 release topiramate 50 mg tablet (Topamax) 150 mg PO BEDTIME 04/20/22 10/28/24 levothyroxine 75 mcg tablet 75 mcg PO 1XD 12/21/22 10/28/24 modafinil 200 mg tablet 200 mg PO DAILY 12/21/22 10/28/24 Previous Rx's ?Medication ?Instructions ?Recorded promethazine 25 mg tablet 25 mg PO Q6H PRN nausea and 04/02/25 vomiting #20 tabs sucralfate 1 gram tablet (Carafate) 1 g PO Q6H PRN dyspepsia 4 weeks 04/02/25 #112 tabs Allergies Allergy/AdvReac Type Severity Reaction Status Date / Time No Known Allergies Allergy Verified 10/28/24 15:42 Review of Systems Const: Denies: fever(s) or chills Card: Denies: chest pain Resp: Denies: dyspnea GI: Denies: abdominal pain : Denies: dysuria, urinary frequency or urinary urgency Musc: Denies: neck pain or back pain Skin/Breast: Denies: rash PFSH ED PFSH: Medical History (Updated 04/02/25 @ 13:14 by Pascual Mills DO) Bilateral carpal tunnel syndrome Peripheral neuropathy Surgical History (Updated 04/02/25 @ 13:14 by Pascual Mills DO) History of cholecystectomy Social History Smoking and tobacco/nicotine status: current every day tobacco/nicotine user Alcohol intake: never Substance/Drug Use: former Physical Exam Const: COMMON NORMALS: no acute distress GENERAL APPEARANCE: cooperative and comfortable ORIENTATION/CONSCIOUSNESS: Yes awake, Yes oriented to person, Yes oriented to place and Yes oriented to time HENMT: COMMON NORMALS: normocephalic, atraumatic and hearing grossly normal bilaterally HEAD & SCALP: normocephalic and atraumatic Resp: COMMON NORMALS: normal respiratory effort, No retractions, No use of accessory muscles and clear to auscultation bilaterally AUSCULTATION: clear to auscultation bilaterally Cardio: COMMON NORMALS: regular rate, regular rhythm and No murmurs present (Cardio) RATE: regular rate RHYTHM: regular rhythm GI: COMMON NORMALS: Soft to palpation and No hepatosplenomegaly present AUSCULTATION: Yes normoactive bowel sounds PALPATION: Yes Soft to palpation, No Tenderness to palpation present (GI), No Guarding due to palpation present (GI) and Yes No hepatosplenomegaly present Extremity: COMMON NORMALS: normal to inspection, capillary refill normal, no clubbing, cyanosis or edema, no calf tenderness and no pedal edema Neuro: SENSORIUM/ORIENTATION: Yes oriented to person, Yes oriented to place and Yes oriented to time Skin: COMMON NORMALS: no rashes or lesions noted GENERAL SKIN EXAM: no rashes or lesions noted Course Vital Signs: Vital signs: Vital Signs Temperature 98.4 F 04/02/25 11:20 Pulse Rate 87 04/02/25 12:30 Respiratory Rate 17 04/02/25 11:20 Blood Pressure 122/83 04/02/25 12:30 Pulse Oximetry 100 04/02/25 12:30 Oxygen Delivery Me thod Room Air 04/02/25 12:30 MDM - Nausea/Vomiting/Diarrhea Medical Decision Making Labs and imaging reviewed no leukocytosis liver functions mildly elevated but she has no focal pain to the right upper quadrant she initially had denied any previous abdominal surgeries discussing with her later she recall that she had previously had a cholecystectomy. Will discharge patient home she is feeling much better after fluids continue the pantoprazole can use promethazine and Carafate as needed return if has further problems Medical Records I reviewed the patient's medical records. Lab Data I reviewed the patient's lab results. 04/02/25 11:35 04/02/25 11:35 Laboratory Results WBC 6.02 10^3/uL (3.29-11.43) 04/02/25 11:35 RBC 5.29 10^6/uL (3.85-5.65) 04/02/25 11:35 Hgb 15.40 g/dL (11.27-16.99) 04/02/25 11:35 Hct 46.0 % (36-47) 04/02/25 11:35 MCV 87.0 fl (85-98) 04/02/25 11:35 MCH 29.1 pg (27-33) 04/02/25 11:35 MCHC 33.5 g/dL (30-55) 04/02/25 11:35 RDW 13.0 % (12.1-15.1) 04/02/25 11:35 Plt Count 356 10^3/cmm (157-399) 04/02/25 11:35 MPV 8.5 fL (7.4-10.4) 04/02/25 11:35 Neut % (Auto) 59.0 % 04/02/25 11:35 Lymph % (Auto) 28.1 % 04/02/25 11:35 [place] % (Auto) 9.8 % 04/02/25 11:35 Eos % (Auto) 2.2 % 04/02/25 11:35 Baso % (Auto) 0.7 % 04/02/25 11:35 Neut # (Auto) 3.56 10^3/uL (1.8-7.7) 04/02/25 11:35 Lymph # (Auto) 1.7 10^3/uL (0.8-4.8) 04/02/25 11:35 [place] # (Auto) 0.6 10^3/uL (0.2-0.9) 04/02/25 11:35 Eos # (Auto) 0.1 10^3/uL (0.0-0.8) 04/02/25 11:35 Baso # (Auto) 0.0 10^3/uL (0.0-0.1) 04/02/25 11:35 Nucleated RBC % (auto) 0 % 04/02/25 11:35 Nucleated RBCs # 0.0 /100WBC 04/02/25 11:35 Sodium 139 mmol/L (136-145) 04/02/25 11:35 Potassium 3.8 mmol/L (3.5-5.1) 04/02/25 11:35 Chloride 105 mmol/L (98-107) 04/02/25 11:35 Carbon Dioxide 22 mmol/L (22-29) 04/02/25 11:35 Anion Gap 15.8 (5-19) 04/02/25 11:35 BUN 13 mg/dL (6-20) 04/02/25 11:35 Creatinine 0.8 mg/dL (0.5-0.9) 04/02/25 11:35 GFR Calculation 75.9 mL/min (90-130) L 04/02/25 11:35 Glucose 120 mg/dL (65-115) H 04/02/25 11:35 Calculated Osmolality 289 mOsm/kg (285-295) 04/02/25 11:35 Calcium 9.0 mg/dL (8.5-10.5) 04/02/25 11:35 Total Bilirubin 0.3 mg/dL (0.15-1.2) 04/02/25 11:35 AST 85 U/L (0-32) H 04/02/25 11:35 ALT 68 U/L (0-33) H 04/02/25 11:35 Alkaline Phosphatase 142 U/L (35-105) H 04/02/25 11:35 Total Protein 7.6 g/dL (6.6-8.7) 04/02/25 11:35 Albumin 4.3 g/dL (3.5-5.2) 04/02/25 11:35 Globulin 3.3 g/dL (1.3-4.6) 04/02/25 11:35 Lipase 21 U/L (13-60) 04/02/25 11:35 Urine Color Dark yellow (Yellow) A 04/02/25 12:16 Urine Appearance Clear (CLEAR) 04/02/25 12:16 Urine pH 5.5 (5-7) 04/02/25 12:16 Ur Specific Hardy 1.030 (1.005-1.030) 04/02/25 12:16 Urine Protein Trace (Negative) A 04/02/25 12:16 Urine Glucose (UA) Negative (Normal) 04/02/25 12:16 Urine Ketones Trace (Negative) 04/02/25 12:16 Urine Blood Negative (Negative) 04/02/25 12:16 Urine Nitrate Negative (Negative) 04/02/25 12:16 Urine Bilirubin 1+ (Negative) H 04/02/25 12:16 Urine Urobilinogen 1.0 mg/dL (Negative) 04/02/25 12:16 Ur Leukocyte Esterase Negative (Negative) 04/02/25 12:16 Urine RBC 3-5 /hpf (0-2) 04/02/25 12:16 Urine WBC 0-5 /hpf (0-5) 04/02/25 12:16 Ur Squamous Epith Cells 0-5 /hpf (0-5) 04/02/25 12:16 Calcium Oxalate Crystal 25-40 /hpf H 04/02/25 12:16 Amorphous Sediment Not Reportable 04/02/25 12:16 Urine Bacteria 1+ /hpf (NONE) H 04/02/25 12:16 Hyaline Casts 2.46 /lpf 04/02/25 12:16 Urine Mucus 1+ /hpf 04/02/25 12:16 All radiology interpretation(s) finalized by discharge Discharge Plan Discharge Patient Disposition: Home Clinical Impression: Gastroenteritis Condition: Stable Prescriptions: New promethazine 25 mg tablet 25 mg PO Q6H PRN (Reason: nausea and vomiting) Qty: 20 0RF sucralfate [Carafate] 1 gram tablet 1 g PO Q6H PRN (Reason: dyspepsia) 28 Days Qty: 112 0RF No Action ergocalciferol (vitamin D2) 1,250 mcg (50,000 unit) capsule 1,250 mcg PO .WKLY pantoprazole 40 mg tablet,delayed release (DR/EC) 40 mg PO DAILY topiramate [Topamax] 50 mg tablet 150 mg PO BEDTIME magnesium oxide 400 mg magnesium tablet 400 mg PO DAILY levothyroxine 75 mcg tablet 75 mcg PO 1XD modafinil 200 mg tablet 200 mg PO DAILY Discharge Orders: Discharge ED (Routine); Ordered 04/02/25 Ordered By: Pascual Mills Referrals: Gopi Barrera MD [Primary Care Provider, [facility]] Discharge Diet: Clear Liquid Discharge Activity: Resume usual activity Patient Instructions: Opioid Safety, Pain Management Activity Restrictions/Additional Instructions: Thank you for choosing [facility] for your healthcare needs today. It is very important that you follow up as instructed or that you return to the Emergency Department should you have concerns or if your condition changes or worsens in any way. You were seen in the emergency room with complaints of diarrhea and abdominal cramping. Laboratory test did not show any significant elevation of your white count there was a slight elevation of some of your liver enzymes that should be rechecked by your doctor in 2 to 3 weeks. Clear liquid diet for the next 24 to 48 hours then advance as tolerated. You were given sucralfate and promethazine to use as needed. Print Language: Mohawk Coding Level of Care Code ED Automatic Centrifugal Station Operator for Maritza Pickett
[2025-04-02] MEDS: sodium chloride 0.9% 1,000 ML 999 ML IV (11:40)
[2025-04-02] MEDS: ondansetron 2 mg/ML SDV 2 mL 4 MG IVP (11:40)
[2025-04-02 11:47] VITALS: BP 119/83; PULSE 88; O2SAT 97
--- NOTE | 2025-04-02 11:47 | PC.NURSE ---
pt requesting sprite prior to ua, Dr. Mills notified and okayed pt to drink. sprite given to pt.
[2025-04-02 11:50] LABS: Basophils % 0.7 %; Eosinophils # 0.1 10^3/uL (0.0-0.8); Eosinophils % 2.2 %; Lymphocytes # 1.7 10^3/uL (0.8-4.8); Lymphocytes % 28.1 %; Mean Corpuscular HGB Conc 33.5 g/dL (30-55); Mean Corpuscular Hemoglobin 29.1 pg (27-33); Mean Platelet Volume 8.5 fL (7.4-10.4); Monocytes # 0.6 10^3/uL (0.2-0.9); Monocytes % 9.8 %; Neutrophils # 3.56 10^3/uL (1.8-7.7); Nucleated Red Blood Cells % 0 %; Platelet Count 356 10^3/cmm (157-399); Red Blood Count 5.29 10^6/uL (3.85-5.65); White Blood Count 6.02 10^3/uL (3.29-11.43)
[2025-04-02 12:00] VITALS: BP 107/75; PULSE 86; O2SAT 98
[2025-04-02] MEDS: diphenhydrAMINE 50 mg/mL SDV 1mL IVP (12:12)
[2025-04-02 12:13] LABS: Alanine Aminotransferase 68 U/L (0-33); Albumin Level 4.3 g/dL (3.5-5.2); Alkaline Phosphatase 142 U/L (35-105); Anion Gap 15.8 (5-19); Aspartate Amino Transferase 85 U/L (0-32); Blood Urea Nitrogen 13 mg/dL (6-20); Carbon Dioxide 22 mmol/L (22-29); Chloride 105 mmol/L (98-107); Creatinine Clr Calc Pharmacy 84.5543; Globulin 3.3 g/dL (1.3-4.6); Glomerular Filtration Rate 75.9 mL/min (90-130); Glucose 120 mg/dL (65-115); Lipase 21 U/L (13-60); Osmolality Calculated 289 mOsm/kg (285-295); Potassium 3.8 mmol/L (3.5-5.1); Sodium 139 mmol/L (136-145); Total Bilirubin 0.3 mg/dL (0.15-1.2); Total Protein 7.6 g/dL (6.6-8.7)
[2025-04-02] MEDS: lidocaine 2% viscous 15 ML, aluminum-mag hydrox-simethicon 30 ML, sucralfate oral liq 1 GM PO (12:26)
[2025-04-02 12:30] VITALS: BP 122/83; PULSE 87; O2SAT 100
[2025-04-02 12:45] LABS: Bilirubin Urine 1+ (Negative); Blood Urine Negative (Negative); Glucose Urine UA Negative (Normal); Ketones Urine Trace (Negative); Leukocyte Esterase Urine Negative (Negative); Nitrate Urine Negative (Negative); Protein Urine Trace (Negative); Urine Appearance Clear (CLEAR); Urine Color Dark Yellow (Yellow); pH Urine 5.5 (5-7)
[2025-04-02 12:48] LABS: Add Urine Microscopic? YES; Bacteria Urine 1+ /hpf; Hyaline Casts Urine 2.46 /lpf; Squamous Epithelial Cell Urine 0-5 /hpf (0-5); WBC Urine 0-5 /hpf (0-5)
[2025-04-02 13:03] LABS: Mucus Urine 1+ /hpf; UA Slide Review UA Slide Review Perf
[2025-04-02 13:04] LABS: Add Urine Culture? No; Calcium Oxalate Crystals Urine 25-40 /hpf
[2025-04-02 13:15] VITALS: BP 116/75; PULSE 86; O2SAT 99
[2025-04-02 13:26] LABS: C.Diff PCR (Lab) NEGATIVE (Negative)
== END 2025-04-02 13:19 | disposition home or self-care (01) ==
PROVIDERS: Emergency Provider Family Medicine; PCP Family Medicine
DX: K52.9 Noninfective gastroenteritis and colitis, unspecified (principal); Z72.0 Tobacco use
CPT/HCPCS: 80053; 81001; 83690; 85025; 87493; 96361; 96374; 96375; 99284; J1200; J2405; J7030; J9999

== ENCOUNTER 2025-05-19 15:02 | Emergency (ER) | payer MEDICARE, SELFPAY ==
--- OUTSIDE RECORDS SUMMARY | 2022-08-02 06:00 | XMS_ITS | Continuity of Care Document ---
Author Organization [facility] Address [id number] [address] Phone Care Team Providers Care Wearing Apparel Presser Name Role Phone Jerald Murphy DDS Unavailable Unavailable Procedures Procedure Date Patient Left / No Show Advance Directives Directive Yes / No Effective Date File Name No Information Encounters Encounter Description Practice Location Reason(s) For Visit Diagnoses Date Provider Providers Copied on Encounter [facility], [id number], [id number], [place] tel:[phone] [facility] No Information Jeffrey Marques. [address] [place], [address], [place]. tel:[phone] Referring Provider: Jerald Murphy, [address] [place], [address]. tel:[phone] Family History Family Member Type Diagnosis Age [...]
[2025-05-19 15:03] VITALS: BP 109/73; PULSE 95; RESP 19; TEMP 36.4; O2SAT 99
--- OUTSIDE RECORDS SUMMARY | 2025-05-19 15:44 | XMS_ITS | Clinical Summary ---
Author Organization [facility] Address [address] [place] [address] Phone Care Team Providers Care Watch Repair Person Name Role Phone Gopi Barrera MD Primary Care Provider [phone] Allergies No known active allergies Medications Vit 54-Qfex-XA-DSS (ADVANCED ) 90-1-50 mg Oral Tab Take 1 Tab by mouth daily. Active venlafaxine 75 mg Extended Release 24 hour tabletIndicatio ns:Major depressive disorder, recurrent, severe without psychotic features (CMS/HCC),Benig n hypertension,Ab normal weight gain,Chronic fatigue Take by mouth 3 capsules daily . Active metoprolol tartrate (LOPRESSOR) 50 mg tabletIndicatio ns:Major depressive disorder, recurrent, severe without psychotic features (CMS/HCC),Benig n hypertension,Ab normal weight gain,Chronic fatigue Take 50 mg by mouth daily. Active montelukast (SINGULAIR) 10 mg tabletIndicatio ns:Major depressive disorder, recurrent, severe without psychotic features (CMS/HCC),Benig n hypertension,Ab normal weight gain,Chronic fatigue Take 10 mg by mouth daily at bedtime. Active hydrOXYzine HCl (ATARAX) 25 mg tabletIndicatio ns:Major depressive disorder, recurrent, severe without psychotic features (CMS/HCC),Benig n hypertension,Ab normal weight gain,Chronic fatigue Take 25 mg by mouth 3 times daily as needed for Itching. Active cholecalciferol 50,000 unit CapsuleIndicati ons:Major depressive disorder, recurrent, severe without psychotic features (CMS/HCC),Benig n hypertension,Ab normal weight gain,Chronic fatigue Take by mouth every 7 days. Active amitriptyline (ELAVIL) 10 mg tabletIndicatio ns:Major depressive disorder, recurrent, severe without psychotic features (CMS/HCC),Benig n hypertension,Ab normal weight gain,Chronic fatigue Take 10 mg by mouth daily at bedtime. Active lubiprostone (AMITIZA) 8 mcg CapsuleIndicati ons:Major depressive disorder, recurrent, severe without psychotic features (CMS/HCC),Benig n hypertension,Ab normal weight gain,Chronic fatigue Take by mouth 2 times daily with meals. Active zolpidem (AMBIEN) 10 mg tabletIndicatio ns:Major depressive disorder, recurrent, severe without psychotic features (CMS/HCC),Benig n hypertension,Ab normal weight gain,Chronic fatigue Take 10 mg by mouth nightly as needed for Insomnia. Active Magnesium 200 mg TabletIndicatio ns:Major depressive disorder, recurrent, severe without psychotic features (CMS/HCC),Benig n hypertension,Ab normal weight gain,Chronic fatigue Take 400 mg by mouth daily. Active Active Problems Problem Noted Date Diagnosed Date Major depressive disorder, r ecurrent, severe without psychotic features 01/31/2016 Benign hypertension 01/31/2016 Abnormal weight gain 01/31/2016 Chronic fatigue 01/31/2016 Family history of thyroid disease 01/31/2016 Comments Yes Social History Tobacco Use Types Packs/Day Years Used Date Smoking Tobacco: Former Cigarettes Q uit: 03/05/2012 Alcohol Use Standard Drinks/Week Comments No 0 (1 standard drink = 0.6 oz pur e alcohol) Comments Yes Sex and Gender Information Value Date Recorded Sex Assigned at Not on file Legal Sex Female 3:53 AM REGIONAL MANAGER Gender Identity Not on file Sexual Orientation Not on file Occupation Industry Job Start Date Job End Date Not on file Not on file Not on file Not on file Last Filed Vital Signs Vital Sign Reading Time Taken Comments Blood Pressure 127/86 09/08/2012 4:20 PM REGIONAL MANAGER Pulse 84 09/08/2012 4:20 PM REGIONAL MANAGER Temperature 35.8 C (96.4 F) 09/08/2012 4:20 PM REGIONAL MANAGER Respiratory Rate 20 09/08/2012 4:20 PM REGIONAL MANAGER Oxygen Saturation 99% 09/08/2012 4:20 PM REGIONAL MANAGER Inhaled Oxygen Concentration - - Weight 90.7 kg (200 lb) 09/08/2012 4:20 PM REGIONAL MANAGER Height 162.6 cm (5' 4 ) 09/08/2012 4:20 PM REGIONAL MANAGER Body Mass Index 34.33 09/08/2012 4:20 PM REGIONAL MANAGER Plan of Treatment Health Maintenance Due Date Last Done Comments DTAP/TDAP/TD VACCINES (1 - Tdap) 1994 HEPATITIS B VACCINES (1 of 3 - 19+ 3-dose series) 1994 HPV/Cotest (21-29) 01/21/1996 HPV/Cotest (30-65) 2005 BREAST CANCER SCREENING 02/23/2016 02/22/2015 CERVICAL CANCER SCREENING 10/02/2019 PAP SMEAR 10/02/2019 10/02/2016 FIT-DNA Q 3 years 01/21/2020 FIT/FOBT Q 1 year 01/21/2020 Flex Sig/CT Colonography Q 5 years 01/21/2020 ZOSTER VACCINE (1 of 2) 2025 INFLUENZA VACCINE (#1) 2025 COLORECTAL SCREENING 01/27/2026 01/28/2016, 01/28/20 16 Colorectal Cancer Screening 01/27/2026 RSV VACCINE (60+ or ) (1 - 1-dose 75+ series) 2050 Insurance MEDICAID [place] PART A AND B Advance Directives For more information, please contact: [phone] * Full Code (Latest Code Status on File) Date Activated Date Inactivated Comments 09/08/2012 4:25 PM 09/08/2012 7:16 PM * Full Code Date Activated Date Inactivated Comments 09/03/2012 3:50 PM 09/03/2012 7:43 PM * Full Code Date Activated Date Inactivated Comments 08/28/2012 11:34 AM 08/28/2012 1:48 PM Care Teams Watch Repair Person Relationship Specialty Start Date End Date Gopi Barrera MD [address] [address] PCP - General 07/09/03
--- OUTSIDE RECORDS SUMMARY | 2025-05-19 15:44 | XMS_ITS | Encounter Summary ---
Author Organization [facility] Address [address] [place] [address] Care Team Providers Care Perioperative Educator Name Role Phone Gopi Barrera MD Primary Care Provider [phone] Encounter Details Date Type Department Care Team (Late st Contact Info) Description 08/29/2012 Abstract Anatomic Pathology [address] [place] [address] Provider, Abstract Spg NO ADDRESS ON FILE Social History Tobacco Use Types Packs/Day Years Used Date Smoking Tobacco: Former Cigarettes Q uit: 03/05/2012 Alcohol Use Standard Drinks/Week Comments No 0 (1 standard drink = 0.6 oz pur e alcohol) Comments Yes Sex and Gender Information Value Date Recorded Sex Assigned at Not on file Legal Sex Female 3:53 AM OFFICE SUPPORT ASSOCIATE Gender Identity Not on file Sexual Orientation Not on file Occupation Industry Job Start Date Job End Date Not on file Not on file Not on file Not on file documented as of this encounter Plan of Treatment Not on file documented as of this encounter Procedures Procedure Name Priority Date/Time Associated Diagnosis Comments PATHOLOGY REPORT Routine 08/29/2012 documented in this encounter Results * PATHOLOGY REPORT (08/29/2012) PATHOLOGY/CYTOLO GY REPORT [facility] CORRECTED REPORT [facility] ADDENDUM REPORT [facility] REVISED FINAL REPORT [facility] SURGICAL PATHOLOGY [facility] FINAL [facility]PORT [facility] FINAL [facility]PORT [facility] FINAL REPORT [facility] PRELIMINARY REPORT [facility] us Abstract Spg Provider PATHOLOGY/CYTOLOGY ORDERAB LES Final Result [facility] CLIA# [id number] [address] [place] [address] documented in this encounter Visit Diagnoses Not on filedocumented in this encounter Care Teams Perioperative Educator Relationship Specialty Start Date End Date Gopi Barrera MD [address] [id number] PCP - General 07/09/03 documented as of this encounter
--- OUTSIDE RECORDS SUMMARY | 2025-05-19 15:44 | XMS_ITS | Encounter Summary ---
Author Organization [facility] Address [address] [place] [address] Care Team Providers Care Ore Bridge Operator Name Role Phone Gopi Barrera MD Primary Care Provider [phone] Encounter Details Date Type Department Care Team (Latest Contact Info) Description 10/11/2006 Outpatient Historical [facility] Neuro Psychology [address] [place] [address] Michael Fox, PhD NO ADDRESS ON FILE Depressive Disorder, not Elsewhere Classified (Primary Dx) Social History Tobacco Use Types Packs/Day Years Used Date Smoking Tobacco: Never Assessed Comments Unknown Sex and Gender Information Value Date Recorded Sex Assigned at Not on file Legal Sex Female 3:53 AM READINESS PARAPROFESSIONAL Gender Identity Not on file Sexual Orientation Not on file documented as of this encounter Plan of Treatment Not on file documented as of this encounter Visit Diagnoses Diagnosis Depressive disorder, not elsewhere classified- Primary documented in this encounter Care Teams Ore Bridge Operator Relationship Specialty Start Date End Date Gopi Barrera MD [address] [place] [id number] PCP - General 07/09/03 documented as of this encounter
--- OUTSIDE RECORDS SUMMARY | 2025-05-19 15:44 | XMS_ITS | Encounter Summary ---
Author Organization [facility] Address [address] [place] [address] Care Team Providers Care Environmental Aid Name Role Phone Gopi Barrera MD Primary Care Provider [phone] Encounter Details Date Type Department Care Team (Late st Contact Info) Description 07/09/[address] [facility] Emergency Department [address] [place] [address] Kaushal Rutledge ADDRESS ON FILE MYALGIA AND MYOSITIS NOS (Primary Dx) Social History Tobacco Use Types Packs/Day Years Used Date Smoking Tobacco: Never Assessed Comments Unknown Sex and Gender Information Value Date Recorded Sex Assigned at Not on file Legal Sex Female 3:53 AM FIXED ROUTE OPERATOR Gender Identity Not on file Sexual Orientation Not on file documented as of this encounter Plan of Treatment Not on file documented as of this encounter Visit Diagnoses Diagnosis Myalgia and myositis, unspecified- Primary Mylagia and myositis, unspecified documented in this encounter Care Teams Environmental Aid Relationship Specialty Start Date End Date Gopi Barrera MD [address] [phone] PCP - General 07/09/03 documented as of this encounter
--- OUTSIDE RECORDS SUMMARY | 2025-05-19 15:44 | XMS_ITS | Encounter Summary ---
Author Organization [facility] Address [address] [place] [address] Care Team Providers Care Intern Architect Name Role Phone Gopi Barrera MD Primary Care Provider [phone] Encounter Details Date Type Department Care Team (Latest Contact Info) Description 08/23/2006 Outpatient Historical [facility] Rheumatology- [place] Gabriel [address] [place] [address] Caitlin Hernadez MD [address] [place] [address] Rheumatism, Unspecified and Fibrositis (Primary Dx); Viral Infection Social History Tobacco Use Types Packs/Day Years Used Date Smoking Tobacco: Never Assessed Comments Unknown Sex and Gender Information Value Date Recorded Sex Assigned at Not on file Legal Sex Female 3:53 AM HEALTH MANAGER Gender Identity Not on file Sexual Orientation Not on file documented as of this encounter Plan of Treatment Not on file documented as of this encounter Visit Diagnoses Diagnosis Rheumatism, unspecified and fibrositis- Primary Unspecified viral infection, in conditions classified elsewhere and of unspecified site documented in this encounter Care Teams Intern Architect Relationship Specialty Start Date End Date Gopi Barrera MD [address] [phone] PCP - General 07/09/03 documented as of this encounter
--- OUTSIDE RECORDS SUMMARY | 2025-05-19 15:44 | XMS_ITS | Data Portability ---
Author Organization HARIKA Mat Cart[facility]a [facility] Address [address] [address] Care Team Providers Care Slip Tender Name Role Phone FRACISCO BARRERA Primary Care Provider [phone] Assessment No assessment recorded. Plan of Treatment Reminders Order Date Submit Date Provider Last Modified By Organization Details Last Modified Time Details Appointments None recorded. Lab culture, stool 2024 025 [email or web address] [facility], [address] [facility], [address], [address], 10:35:00 O&P (ova & parasites), stool [address] [facility], [address], [address], 10:35:00 giardia lamblia Ag, stool [address] Lab, [address], [address], 10:35:00 TSH, serum or plasma [email or web address] [facility], [address] [facility], [address], [address], 15:54:54 T4, free, serum 2024 025 [facility], [address] [place], [address], 09:07:27 Referral ENT surgery referral 2024 025 [email or web address] 2 Baldemar Lozoya MD, [address] , [place], [address], 09:59:38 Procedures None recorded. Surgeries None recorded. Imaging None recorded. Medication Orders hydroxyzine HCl 25 mg tablet 2024 025 [employer] [id number], [address], [place], [place], [id number], 17:05:33 cyanocobala min (vit B-12) 1,000 mcg/mL injection solution 2024 025 Not available 11:06:52 prednisone 20 mg tablet 2024 025 [id number], [address], [place], [place], [id number], 16:47:12 topiramate 50 mg tablet 2024 025 [facility], [address], [place], [place], [id number], 17:36:28 cyanocobala min (vit B-12) 1,000 mcg/mL injection solution 2024 025 [email or web address] Not available 17:31:48 Patient TargetsNo targets recorded. Patient InstructionsNo instructions recorded. Reason for Referral ENT Surgery Referral for Obs tructive sleep apnea of adult Referring Physician: Fracisco Barrera, Family Medicine, Encounter Date: 01/27/2025 Results Created Date Observation Date Name Description Value Unit Range Abnormal Flag Note LastModifiedBy Organization Detail LastModifiedTime 01/29/20 25 01/28/2025 TSH TSH 0.11 uIU/m L 0.49-3 .82 low Not Available [facility] [address] [facility] [address], [place], [address], 01/28/2025 17:12:32 01/29/20 25 01/29/2025 T4, FREE T4, free 1.3 NG/dL 0.8-1. 8 normal Not Available [employer] [facility] [address], [place], [address], 01/29/2025 09:07:27 01/23/2001/22/2025 US, margie t, dandre davis No observ ation record ed. [email or web address] [place] [address] [address] [place], [address], 01/23/2025 14:19:39 01/23/20 25 01/22/2025 MAMMO , scree antoinette, digit al, bilat eral No observ ation record ed. [email or web address] [place], [address], 01/23/2025 14:19:40 Result Notes None recorded. 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 5 16:59:21 Fibromyal frederick 804686867 Active 2022 GLORIA MARIE null, [facility] 5 16:59:21 Hypomagne semia 476841904 Active 2022 GLORIA MARIE null, [facility] 5 16:59:21 Fatigue 34512308 Active 2022 GLORIA MARIE null, [facility] 5 16:59:21 Hypothyro idism 57248902 Active 2022 GLORIA MARIE null, [facility] 5 16:59:21 Acne vulgaris 43214749 Active 2022 GLORIA kwong, [facility] 5 16:59:21 Generaliz ed anxiety disorder 06155470 Active 2022 GLORIA kwong, [facility] 5 16:59:21 Obesity 476649845 Active 2023 GLORIA MARIE null, [facility] 5 16:59:21 Gastroeso phageal reflux disease 613106783 Active 2023 GLORIA MARIE null, [facility] 5 16:59:21 Chronic headache disorder 239696647 Active [address], [address], [facility] 5 16:43:32 Obstructi ve sleep apnea of adult 719915426608 3 Active [address], [address], [facility] 5 16:43:32 Diarrhea 15497794 Active 2024 Fracisco Barrera MD [address] [place], [address], [facility] 5 17:01:29 Problem Notes None recorded. Procedures Surgical History Date Name Laterality Status Provider Name and Address Organization Details Recorded Time 09/22/2024 Joint Inj Kenalog- Shoulder, Hip, Knee completed Boris Molina DO [address] [place], [address], [facility] 09/22/2024 18:16:53 Imaging Results None recorded. Procedure Notes None recorded. Medical Equipment None Reported. Allergies Allergen ID Allergen Name Allergen Category Reaction Reaction Severity Criticality Documentation Date Start Date Code Code System Note Provider Name and Address Organization Details Recorded Time 91267 Bactrim medicatio n hives mild low 06/02/2023 50398 9 RxNorm Ushacristal Zepeda [facility] 4 08:03:29 Medications Name Sig Start Date Stop Date Status Note LastModified by Organization Details LastModified Time multivita min TAKE 1 TABLET BY MOUTH EVERY DAY active Not Available Not Available No t Available amoxicill in 500 mg capsule TAKE 1 CAPSULE BY MOUTH THREE TIMES DAILY UNTIL GONE 04/23 completed Not Available Not Available Not Available promethaz ine-DM 6.25 mg-15 mg/5 mL oral syrup TAKE 5 TO 10 ML BY MOUTH EVERY 6 HOURS NEEDED 01/27 completed Not Available Not Available Not Available doxycycli ne hyclate 100 mg capsule TAKE 1 CAPSULE BY MOUTH TWICE A DAY FOR 10 DAYS 04/23 completed Not Available Not Available Not Available atorvasta tin 10 mg tablet TAKE 1 TABLET BY MOUTH EVERY DAY active Not Available Not Available No t Available Lidocaine Viscous 2 % mucosal solution APPLY TO MUCOUS MEMBRANE EVERY 4 HOURS NEEDED FOR PAIN. 04/16 completed Not Available Not Available Not Available hydrocodo ne 5 mg-acetam inophen 325 mg tablet TAKE 1 TABLET BY MOUTH EVERY 4-6 HOURS NEEDED FOR PAIN 07/28 completed Not Available Not Available Not Available sucralfat e 1 gram tablet TAKE 1 TABLET BY MOUTH EVERY 6 HOURS FOR 4 WEEKS NEEDED FOR INDIGEST ION active Not Available Not Available No t Available prednison e 20 mg tablet TAKE 2 TABLETS BY MOUTH EVERY DAY FOR 6 DAYS active Not Available Not Available No t Available ciproflox acin 500 mg tablet 10/26 completed Not Available Not Available Not Available clindamyc in 1 %-benzoyl peroxide 5 % topical gel APPLY TO THE AFFECTED AREA(S) BY TOPICAL ROUTE 2 TIMES PER DAY IN THE MORNING AND EVENING 01/30 completed Not Available Not Available Not Available amoxicill in 500 mg tablet TAKE 1 TABLET BY MOUTH THREE TIMES DAILY FOR 7 DAYS 04/16 completed Not Available Not Available Not Available levothyro xine 75 mcg tablet TAKE 1 TABLET BY MOUTH DAILY 04/16 completed Not Available Not Available Not Available Kenalog 40 mg/mL suspensio n for injection Take 40 mg by injectio n route. 11/26 completed Not Available Not Available Not Available levothyro xine 100 mcg tablet TAKE 1 TABLET BY MOUTH EVERY DAY active Not Available Not Available No t Available betametha sone acetate and sodium phos 6 mg/mL suspensio n for injection Take 6 mg every day by injectio n route for 1 day. 11/26 completed Not Available Not Available Not Available levothyro xine 88 mcg tablet TAKE 1 TABLET BY MOUTH DAILY 04/16 completed Not Available Not Available Not Available magnesium oxide 400 mg (241.3 mg magnesium ) tablet TAKE 1 TABLET BY MOUTH DAILY 01/27 completed Not Available Not Available Not Available modafinil 200 mg tablet TAKE 1 TABLET BY MOUTH DAILY FOR EXCESSIV E SLEEPINE SS active Not Available Not Available No t Available methocarb niyah 750 mg tablet TAKE 1 TABLET BY MOUTH THREE TIMES DAILY NEEDED FOR MUSCLE PAIN 04/16 completed Not Available Not Available Not Available nortripty line 75 mg capsule TAKE 1 CAPSULE BY MOUTH EVERY DAY active Not Available Not Available No t Available levothyro xine 50 mcg tablet TAKE 1 TABLET BY MOUTH DAILY A SINGLE DOSE BEFORE BREAKFAS T 04/16 completed Not Available Not Available Not Available pantopraz ole 40 mg tablet,de layed release TAKE 1 TABLET BY MOUTH DAILY active Not Available Not Available No t Available cyanocoba daryn (vit B-12) 1,000 mcg/mL injection solution INJECT 1 MILLILIT ER SUBCUTAN EOUSLY EVERY MONTH active Not Available Not Available No t Available levothyro xine 125 mcg tablet TAKE 1 TABLET BY MOUTH DAILY 01/28 completed Not Available Not Available Not Available prednison e 50 mg tablet TAKE 1 TABLET BY MOUTH DAILY 04/16 completed Not Available Not Available Not Available promethaz ine 25 mg tablet TAKE 1 TABLET BY MOUTH EVERY 6 HOURS NEEDED FOR NAUSEA OR VOMITING active Not Available Not Available No t Available diclofena c sodium 75 mg tablet,de layed release two times daily 01/30 completed RM/AV; 9; Recorded 11/13/19 2:43PM by Gloria holbrook (Authori zed through Fracisco Barrera MD), Annotati on/Adden dum; Refill Quantity : 60; Tablet; Not Available Not Available Not Available monteluka st 10 mg tablet TAKE 1 TABLET BY MOUTH DAILY active Not Available Not Available No t Available hydroxyzi ne HCl 25 mg tablet TAKE 1 TABLET BY MOUTH THREE TIMES DAILY active Not Available Not Available No t Available acetamino phen 300 mg-codein e 60 mg tablet TAKE 1 TABLET BY MOUTH EVERY 4 TO 6 HOURS NEEDED FOR PAIN 07/28 completed Not Available Not Available Not Available ergocalci ferol (vitamin D2) 1,250 mcg (50,000 unit) capsule TAKE 1 CAPSULE BY MOUTH WEEKLY active Not Available Not Available No t Available albuterol sulfate HFA 90 mcg/actua tion aerosol inhaler INHALE 2 PUFFS BY MOUTH FOUR TIMES DAILY NEEDED FOR COUGH OR WHEEZING 01/30 completed Not Available Not Available Not Available doxycycli ne hyclate 100 mg tablet 04/16 completed Not Available Not Available Not Available levothyro xine 112 mcg tablet TAKE 1 TABLET BY MOUTH DAILY 10/26 completed Not Available Not Available Not Available amoxicill in 875 mg-potass ium clavulana te 125 mg tablet TAKE 1 TABLET BY MOUTH TWICE DAILY 04/16 completed Not Available Not Available Not Available cyanocoba daryn (vit B-12) 1,000 mcg/mL injection syringe x1 07/18 completed may use monthly; Recorded 01/11/20 2:43PM by Fracisco Barrera MD, Refill Request; Refill Quantity : 1; Millilit er; Not Available Not Available Not Available topiramat e 50 mg tablet TAKE 3 TABLETS BY MOUTH AT BEDTIME active Not Available Not Available No t Available duloxetin e 60 mg capsule,d elayed release TAKE 2 CAPSULES BY MOUTH DAILY active Not Available Not Available No t Available chlorhexi dine gluconate 0.12 % mouthwash RINSE AND GARGLE 15 ML BY MOUTH TWICE DAILY 04/16 completed Not Available Not Available Not Available oxybutyni n chloride at bedtime 10/26 completed Recorded 01/05/20 9:46AM by Raquel Good, Office Visit; Refill Quantity : 30; Tablet; Not Available Not Available Not Available hydroxyzi ne HCl TID/PRN 07/18 completed RM/CC; Recorded 08/08/20 7:32AM by Fracisco Barrera MD, Refill Request; Refill Quantity : 90; Tablet; Not Available Not Available Not Available Vitamin D weekly 2021 active VO RM/bn; 9; Recorded 06/12/20 4:19PM by Raquel Good (Authori zed through Fracisco Barrera MD), Refill Request; Refill Quantity : 4; Capsule; Not Available Not Available Not Available nortripty line at bedtime 07/18 completed RM/AV; 9; Recorded 08/08/20 4:39PM by Gloria holbrook (Authori zed through Fracisco Barrera MD), Annotati on/Adden dum; Refill Quantity : 90; Capsule; Not Available Not Available Not Available L-Thyroxi ne 10/[address] Grover. (Muñiz); 0; Recorded 01/11/20 2:33PM by Raquel Good, Office Visit; Not Available Not Available Not Available Vitamin daily 07/18 completed RM/AV; 9; Recorded 06/06/20 22 3:08PM by Gloria holbrook (i shala through Fracisco Barrera MD), Annotati on/Adden dum; Refill Quantity : 90; Tablet; Not Available Not Available Not Available Senexon-S 8.6 mg-50 mg tablet TAKE 2 TABLETS BY MOUTH EVERY DAY FOR 30 DAYS active Not Available Not Available No t Available Victoza 0.6 mg/0.1 mL (18 mg/3 mL) subcutane ous pen injector daily 07/18 completed Recorded 01/11/20 23 2:33PM by Raquel Good, Office Visit; Refill Quantity : 1; Packet; Not Available Not Available Not Available BC Arthritis 1,000 mg-65 mg oral powder packet Take by oral route. 01/30 completed Not Available Not Available Not Available Trulicity 0.75 mg/0.5 mL subcutane ous pen injector Inject by subcutan eous route for 28 days. 01/15 completed Not Available Not Available Not Available Ozempic 0.25 mg or 0.5 mg (2 mg/1.5 mL) subcutane ous pen injector inject 0.25mg SUBCUTAN EOUSLY every week FOR FOUR weeks THEN 0.5mg every week 04/16 completed Not Available Not Available Not Available Ozempic once a week 07/18 completed 4 doses per month please R73.9; Recorded 01/11/20 23 3:25PM by Fracisco Barrera MD, Office Visit; Refill Quantity : 4; Packet; Not Available Not Available Not Available magnesium 400 mg (as magnesium oxide) tablet Take 1 tablet every day by oral route for 90 days. 2022 active Not Available Not Available Not Avai lable WesTab Plus 27 mg iron-1 mg tablet TAKE 1 TABLET BY MOUTH EVERY DAY active Not Available Not Available No t Available Ozempic 1 mg/dose (4 mg/3 mL) subcutane ous pen injector INJECT 1MG SUBCUTAN EOUSLY every week 07/18 completed Not Available Not Available Not Available Paxlovid 300 mg (150 mg x 2)-100 mg tablets in a dose pack TK 2 NIRMATRE LVIR TS AND 1 RITONAVI R T TOGETHER PO 10/26 completed Not Available Not Available Not Available Mounjaro 7.5 mg/0.5 mL subcutane ous pen injector Inject by subcutan eous route for 28 days. 01/15 completed Not Available Not Available Not Available Mounjaro 5 mg/0.5 mL subcutane ous pen injector inject 5mg SUBCUTAN EOUSLY every week stop ozempic if you start mounjaro 10/26 completed Not Available Not Available Not Available Vitals Date Recorded Body height Body mass index (BMI) Body weight Heart rate Systolic And Diastolic Provider Name and Address Organization Details Last Updated DateTime 01/27/2025 162.56 cm 29.2 kg/m2 72613.7 g 90 /min 120/70 mm[Hg] GLORIA MARIE [facility] 16:56:13 Date Recorded Body height Body mass index (BMI) Body weight Oxygen saturation Oxygen saturation in Arterial blood by Pulse oximetry Heart rate Body temperature Systolic And Diastolic Provider Name and Address Organization Details Last Updated DateTime 162.56 cm 29.7 kg/m2 15320.1 8 g 99 % 99 % 84 /min 98.3 [degF] 110/62 mm[Hg] Connie Yeager [facility] 16:41:56 Date Recorded Body height Body mass index (BMI) Body weight Heart rate Oxygen saturation Oxygen saturation in Arterial blood by Pulse oximetry Systolic And Diastolic Provider Name and Address Organization Details Last Updated DateTime 162.56 cm 29.2 kg/m2 78737.7 g 102 /min 96 % 96 % 122/78 mm[Hg] GLORIA MARIE [facility] 16:26:08 Social History Question Answer Notes LastModified by Organizat ion Details LastModified Time Tobacco Smoking Status Never Smoker RAQUEL kwong [facility] 07/18/2023 10:22:58 What Was The Date Of Your Most Recent Tobacco Screening? 04/07/2025 [email or web address] Information not available 04/07/2025 Sex: Unknown Functional Status Question Answer Note LastModified by Organizat ion Details LastModified Time Do you use any illicit or recreational drugs? No [email or web address] Information not available 07/18/2023 What is your level of alcohol consumption? None [email or web address] Information not available 07/18/2023 Mental Status None recorded. Family History Nothing Reported. Medical History No medical history recorded. Gynecological HistoryNo gynecological history recorded. Obstetrics History GPAL:G 0 P 0 0 0 0 Immunizations Vaccine Type Date Status Note Provider Nam e and Address Organization Details Recorded Time Tdap 1 completed Not Available [facility] 12/05/2023 18:49:14 Tdap 3 completed Not Available [facility] 12/05/2023 18:49:14 Influenza, split virus, trivalent, preservative 3 completed Not Available [facility] 12/05/2023 18:49:14 Influenza, split virus, trivalent, preservative 6 completed Not Available [facility] 12/05/2023 18:49:14 COVID-19, mRNA, LNP-S, PF, 100 mcg/0.5mL dose or 50 mcg/0.25mL dose 1 completed Not Available [facility] 12/05/2023 18:49:14 COVID-19, mRNA, LNP-S, PF, 100 mcg/0.5mL dose or 50 mcg/0.25mL dose 1 completed Not Available [facility] 12/05/2023 18:49:14 Past Encounters Encounter ID Performer Location Encounter Start Date Encounter Closed Date Diagnosis/Indication Diagnosis SNOMED-CT Code Diagnosis ICD10 Code Diagnosis Note [id number] Fracisco Barrera MD [facility] [address] [place] [id number] 04/16/2023 10:03:15 04/16/2023 11:35:23 Generalized anxiety disorder 66666416 F41.1 Hypomagnesemia 751113869 E83.42 Obesity 462859956 E66.9 Hypothyroidism 98981345 E03.9 Fatigue 72116155 R53.83 [id number] Fracisco Barrera MD [facility] ([facility]) [address] [place] [id number] 07/18/2023 10:10:15 07/18/2023 11:49:13 Hypothyroidism 70218622 E03.9 seeing endocrinol ogy. Fibromyalgia 220509130 M 79.7 stable at this time. Generalize d anxiety disorder 11082356 F41.1 worrying about her children. Anxiety disorder F41.9 [id number] Isaak Latham MD [facility] ([facility]) [address] [place] [id number] 08/29/2023 14:21:28 09/05/2023 22:37:57 Upper respiratory infection 63333597 J06.9 COVID-19 698816218 U07.1 Patient is positive for COVID. Patient does not have significan t risk factors that puts her in the high risk category that would warrant Paxlovid. Discussed symptomati c treatment and plenty of fluids. Follow-up if significan t shortness of breath or worsening symptoms does develop. [id number] AARON PHELAN [facility] ([facility]) [address] [place] [id number] 09/01/2023 16:00:25 09/01/2023 17:11:58 COVID-19 387958920 U07.1 [id number] Fracisco Barrera MD [facility] ([facility]) [address] [place] [id number] 10/26/2023 11:17:23 10/26/2023 15:01:56 Hypothyroidism 46170094 E03.9 seeing endocrinol ogy. 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 [id number] Fracisco Barrera MD [facility] ([facility]) [address] [place] [id number] 01/16/2024 14:15:12 01/16/2024 15:28:39 Constipation 03268445 K59.00 Hemorrhoids 71359386 K64 .9 Generalize d anxiety disorder 87814928 F41.1 Obesity 329979807 E66.9 I still recommend Ozemipic or similar meds for this. Fatigue 77104184 R53.83 [id number] Fracisco Barrera MD [facility] ([facility]) [address] [place], [place] [phone] 01/30/2024 14:10:49 01/30/2024 15:57:31 Pain of left knee joint 6070451722 38874 M25.562 Arthrocent esis performed left knee joint with cleansing of medial knee with alcohol prep and injection of 1ml lidocaine and Betamethas one 6mg into the joint. No complicati ons. [id number] Fracisco Barrera MD [facility] ([facility]) [address] [place] [address] 5 03/25/2024 16:32:15 03/25/2024 17:20:45 Tick bite 35499443 W57.XXXA With myalgia and chills will go ahead and treat with Doxycyclin e. [id number] Fracisco Barrera MD [facility] ([facility]) [address] [place] [address] 5 04/23/2024 16:29:42 04/23/2024 17:24:55 Fatigue 34868675 R53.83 Tick bite 42889125 W57.X XXA improving myalgia RUQ pain. [id number] Fracisco Barrera MD [facility] ([facility]) [address] [place], [place] [phone] 07/04/2024 16:24:46 07/04/2024 17:27:33 Fatigue 69027074 R53.83 [id number] Fracisco Barrera MD [facility] ([facility]) [address] [place], [place] [phone] 07/28/2024 16:24:32 07/28/2024 17:48:46 Fatigue 69024606 R53.83 Gastroesop hageal reflux disease 050039294 K21.9 failed once daily pantoprazo le. Will go to bid. [id number] Boris Molina DO [facility] ([facility]) [address] [place], [place] [phone] 09/22/2024 17:24:46 09/22/2024 18:31:56 Pain of left knee joint 3850937347 06876 M25.562 I counseled pt on DX and treatment options. She does not want another xray or imaging or PT at this time. Pt desires to proceed with Joint injection today. Performed as documented . Pt tolerated well. counseled on limiting activity the next 24 hrs. return if problems. [id number] Fracisco Barrera MD [facility] ([facility]) [address] [place] [id number] 09/29/2024 16:38:50 09/29/2024 17:41:38 Anxiety disorder 528741499 F41.9 Fatigue 03497776 R53.83 improving with change in thyroid dose. Anterior c ervical lymphadenopathy 355921417 R59.0 right, mild. Her endocrinol ogist will be ordering a neck CT. [id number] Fracisco Barrera MD [facility] ([facility]) [address] [place] [id number] 11/21/2024 15:50:34 11/24/2024 13:17:03 [id number] Fracisco Barrera MD [facility] ([facility]) [address] [place] [id number] 11/26/2024 15:05:18 11/27/2024 10:10:27 Anterior cervical lymphadenopathy 404862062 R59.[address] neck as noted. Tenderness of breast 552 20272 N64.4 Lump in up per outer quadrant of right breast 9735057038 78218 N63.11 Suspect cyst. [id number] Fracisco Barrera MD [facility] ([facility]) [address] [place] [id number] 01/19/2025 17:21:32 01/21/2025 04:07:33 Fatigue 96732505 R53.83 improving with change in thyroid dose. [id number] Fracisco Barrera MD [facility] ([facility]) [address] [place] [id number] 01/27/2025 16:14:28 01/27/2025 17:38:37 Generalized anxiety disorder 74991259 F41.1 Hypothyroidism 04303079 E03.9 seeing endocrinol ogy. Chronic he adache disorder 963374238 G44.89 Obstructiv e sleep apnea of adult 1933354334 103 G47.33 Using CPAP nightly and it comes off in the middle of the night as she is restless in her sleep. She is interested in checking out the [employer]. [id number] AARON EVRAS [facility] ([facility]) [address] [place] [id number] 01/30/2025 16:32:13 01/30/2025 18:53:21 Acute pansinusitis 0407505 J01.40 May use Julio Cesar's nasal inserts and also apply on chest. Push oral fluids. Consider nasal saline rinses and otc decongesta nt.Use tylenol/mo aishwarya for vasquez. [id number] Boris Molina DO [facility] ([facility]) [address] [place] [id number] 03/04/2025 17:06:21 03/10/2025 14:55:56 Fatigue 34343839 R53.83 [id number] Fracisco Barrera MD [facility] [facility] ([facility]) [address] [place] [id number] 04/07/2025 15:49:38 04/08/2025 11:00:30 Irritable bowel syndrome 58286934 K58.9 Diarrhea 09780550 R19.7 Generalize d anxiety disorder [id number] F41.1 Health Concerns Section Related Observation LastModified by Organization Detai ls LastModified Time None Recorded Concern Status LastModified by Organization Details LastModified Time None Recorded Advance Directives Directive None Recorded Payers Insurance Date Sequence Insurance Name Policy Number Policy Sanchez Covered Member ID Sanchez Member ID Guarantor Name 04/06/2025 [place] [facility] (INSTITUTION [place]) Iram Ellis [id number] Iram Easley 04/06/2025 2 [place] Iram Dent [id number] Iram Easley 04/07/2025 1 [facility] - DUAL ELIGIBLE (MEDICARE REPLACEMENT/ ADVANTAGE - HMO) Iram Easley [id number] Iram Easley 04/07/2025 1 [employer] (MEDICARE REPLACEMENT/ ADVANTAGE - PPO) [id number] Iram Easley [id number] Iram Easley Notes Date Note Type Note Provider Name and Address Organization Details Recorded Time 5 text/html HypothyroidReported bypatient.Reason for Visit:worsening symptoms Associated Symptoms:weakness;fatigu e;cold intolerance Treatment:taking medication as prescribed Fracisco Barrera MD [address] [place] [address], [phone], [facility], LRandyLPatrice. 01/27/2025 17:36:56 5 text/html walk inx 1 days sinus pressure, congestion, cough. Has not taken any otc meds for this. denies fever, wheezing, body aches. is eating/drinking normally. AARON VERAS [address] [place] [address], [phone], [facility], LRandyLPatrice. 01/30/2025 18:47:58 5 text/html pt presents visit today for b12 injection Boris Molina DO [address] [place] [address], [phone], [facility], LRandyLRandyC. 03/10/2025 07:38:02 OBGyn Episode No OBEpisode recorded.
--- OUTSIDE RECORDS SUMMARY | 2025-05-19 15:44 | XMS_ITS | Encounter Summary ---
Author Organization [facility] Address [address] [place] [address] Care Team Providers Care Kennel Assistant Name Role Phone Gopi Barrera MD Primary Care Provider [phone] Encounter Details Date Type Department Care Team (Latest Contact Info) Description 10/18/2006 Outpatient Historical [facility] Rheumatology- [place] [facility] Gabriel [address] [place] [address] Caitiln Hernadez MD [address] [place], [place] [id number] Rheumatism, Unspecified and Fibrositis (Primary Dx) Social History Tobacco Use Types Packs/Day Years Used Date Smoking Tobacco: Never Assessed Comments Unknown Sex and Gender Information Value Date Recorded Sex Assigned at Not on file Legal Sex Female 3:53 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
--- OUTSIDE RECORDS SUMMARY | 2025-05-19 15:44 | XMS_ITS | Encounter Summary ---
Author Organization [email or web address] Address [address] [place] [address] Care Team Providers Care Healthcare Social Worker Name Role Phone Gopi Barrera MD Primary Care Provider [phone] Encounter Details Date Type Department Care Team (Latest Contact Info) Description 10/18/2006 Outpatient Historical [facility] Neuro Psychology [address] [place] [address] Michael Fox, PhD NO ADDRESS ON FILE Depressive Disorder, not Elsewhere Classified (Primary Dx) Social History Tobacco Use Types Packs/Day Years Used Date Smoking Tobacco: Never Assessed Comments Unknown Sex and Gender Information Value Date Recorded Sex Assigned at Not on file 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
--- OUTSIDE RECORDS SUMMARY | 2025-05-19 15:44 | XMS_ITS | Encounter Summary ---
Author Organization [facility] Address [address] [place] [address] Care Team Providers Care Vocational Training Instructor Name Role Phone Gopi Barrera MD Primary Care Provider [phone] Encounter Details Date Type Department Care Team (Latest Contact Info) Description 07/18/2006 Outpatient Historical [facility] Endocrinology-[facility] Gabriel [address] [place] [address] Delroy Rudolph MD NO ADDRESS ON FILE Chronic Lymphocytic Thyroiditis (Primary Dx); Abnormal Weight Gain Social History Tobacco Use Types Packs/Day Years Used Date Smoking Tobacco: Never Assessed Comments Unknown Sex and Gender Information Value Date Recorded Sex Assigned at Not on file 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
--- OUTSIDE RECORDS SUMMARY | 2025-05-19 15:44 | XMS_ITS | Encounter Summary ---
Author Organization [facility] Address [address] [place] [address] Care Team Providers Care Lead Java Software Engineer Name Role Phone Gopi Barrera MD Primary Care Provider [phone] Encounter Details Date Type Department Care Team (Latest Contact Info) Description 08/23/2006 Outpatient Historical [facility] Rheumatology- [place] Gabriel [address] [place] [address] Caitlin Hernadez MD [address] [place] [address] Viral Infection (Primary Dx) Social History Tobacco Use Types Packs/Day Years Used Date Smoking Tobacco: Never Assessed Comments Unknown Sex and Gender Information Value Date Recorded Sex Assigned at Not on file 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 Gender Identity Not on file Sexual Orientation Not on file documented as of this encounter Plan of Treatment Not on file documented as of this encounter Procedures Procedure Name Priority Date/Time Associated Diagnosis Comments IGM Routine 08/23/2006 9:54 AM CDT IGG Routine 08/23/2006 9:54 AM CDT documented in this encounter Results * IGM (08/23/2006 9:54 AM CDT) IGM 172.0 40.0 - 263.0 mg/dL INTERFACE SYSTEM 08/23/2006 9:54 AM CDT us Caitlin Hernadez MD CHEMISTRY ORDERABLES Final Res ult INTERFACE SYSTEM Refer to clinic/hospital department * IGG (08/23/2006 9:54 AM CDT) IGG 1300 687 - 1400 mg/dL INTERFACE SYSTEM 08/23/2006 9:54 AM CDT us Caitlin Hernadez MD CHEMISTRY ORDERABLES Final Res ult INTERFACE SYSTEM Refer to clinic/hospital department documented in this encounter Visit Diagnoses Diagnosis Unspecified viral infection, in conditions classified elsewhere and of unspecified site- Primary documented in this encounter Care Teams Lead Java Software Engineer Relationship Specialty Start Date End Date Gopi Barrera MD [address] [place] [id number] PCP - General 07/09/03 documented as of this encounter
--- OUTSIDE RECORDS SUMMARY | 2025-05-19 15:44 | XMS_ITS | Encounter Summary ---
Author Organization [facility] Address [address] [place] [address] Care Team Providers Care Conference Center Manager Name Role Phone Gopi Barrera MD Primary Care Provider [phone] Encounter Details Date Type Department Care Team (Latest Contact Info) Description 09/18/2006 Outpatient Historical [facility] Neuro Psychology [address] [place] [address] Michael Fox, PhD NO ADDRESS ON FILE Depressive Disorder, not Elsewhere Classified (Primary Dx) Social History Tobacco Use Types Packs/Day Years Used Date Smoking Tobacco: Never Assessed Comments Unknown Sex and Gender Information Value Date Recorded Sex Assigned at Not on file 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
--- OUTSIDE RECORDS SUMMARY | 2025-05-19 15:44 | XMS_ITS | Clinical Summary ---
Author Organization [facility] Address [address] [place]: [place] [address] Care Team Providers Care Horse Racing Manager Name Role Phone Gopi Barrera MD Primary Care Provider [phone] Allergies No known active allergies Medications Magnesium 200 mg TabletIndicatio ns:Major depressive disorder, recurrent, severe without psychotic features (CMS/HCC),Benig n hypertension,Ab normal weight gain,Chronic fatigue Take 400 mg by mouth daily. 01/31/2016 Active amitriptyline (ELAVIL) 10 mg tabletIndicatio ns:Major depressive disorder, recurrent, severe without psychotic features (CMS/HCC),Benig n hypertension,Ab normal weight gain,Chronic fatigue Take 10 mg by mouth daily at bedtime. 01/31/2016 Active venlafaxine 75 mg Extended Release 24 hour tabletIndicatio ns:Major depressive disorder, recurrent, severe without psychotic features (CMS/HCC),Benig n hypertension,Ab normal weight gain,Chronic fatigue Take by mouth 3 capsules daily . 01/31/2016 Active hydrOXYzine HCL (ATARAX) 25 mg tabletIndicatio ns:Major depressive disorder, recurrent, severe without psychotic features (CMS/HCC),Benig n hypertension,Ab normal weight gain,Chronic fatigue Take 25 mg by mouth 3 times daily as needed for Itching. 01/31/2016 Active zolpidem (AMBIEN) 10 mg tabletIndicatio ns:Major depressive disorder, recurrent, severe without psychotic features (CMS/HCC),Benig n hypertension,Ab normal weight gain,Chronic fatigue Take 10 mg by mouth nightly as needed for Insomnia. 01/31/2016 Active metoprolol tartrate (LOPRESSOR) 50 mg tabletIndicatio ns:Major depressive disorder, recurrent, severe without psychotic features (CMS/HCC),Benig n hypertension,Ab normal weight gain,Chronic fatigue Take 50 mg by mouth daily. 01/31/2016 Active montelukast (SINGULAIR) 10 mg tabletIndicatio ns:Major depressive disorder, recurrent, severe without psychotic features (CMS/HCC),Benig n hypertension,Ab normal weight gain,Chronic fatigue Take 10 mg by mouth daily at bedtime. 01/31/2016 Active lubiprostone (AMITIZA) 8 mcg CapsuleIndicati ons:Major depressive disorder, recurrent, severe without psychotic features (CMS/HCC),Benig n hypertension,Ab normal weight gain,Chronic fatigue Take by mouth 2 times daily with meals. 01/31/2016 Active cholecalciferol 1,250 mcg (50,000 unit) CapsuleIndicati ons:Major depressive disorder, recurrent, severe without psychotic features (CMS/HCC),Benig n hypertension,Ab normal weight gain,Chronic fatigue Take by mouth every 7 days. 01/31/2016 Active Active Problems Problem Noted Date Diagnosed Date Major depressive disorder, r ecurrent, severe without psychotic features 01/31/2016 Benign hypertension 01/31/2016 Family history of thyroid disease 01/31/2016 Abnormal weight gain 01/31/2016 Chronic fatigue 01/31/2016 Comments Yes Social History Tobacco Use Types Packs/Day Years Used Date Smoking Tobacco: Former Cigarettes Q uit: 03/05/2012 Alcohol Use Standard Drinks/Week Comments No 0 (1 standard drink = 0.6 oz pur e alcohol) Comments Yes Sex and Gender Information Value Date Recorded Sex Assigned at Not on file Legal Sex Female 2:40 AM CREDENTIALING SPECIALIST Gender Identity Not on file Sexual Orientation Not on file Plan of Treatment Health Maintenance Due Date [...] ) (1 - 1-dose 75+ series) 2050 Care Teams Horse Racing Manager Relationship Specialty Start Date End Date Gopi Barrera MD [address] [id number] PCP - General 07/09/03
[2025-05-19 15:57] LABS: Hematocrit 42.8 % (36-47); Hemoglobin 14.00 g/dL (11.27-16.99); Mean Corpuscular HGB Conc 32.7 g/dL (30-55); Mean Corpuscular Hemoglobin 29.3 pg (27-33); Mean Corpuscular Volume 89.5 fl (85-98); Nucleated Red Blood Cells % 0 %; Platelet Count 378 10^3/cmm (157-399); Red Blood Count 4.78 10^6/uL (3.85-5.65); White Blood Count 7.66 10^3/uL (3.29-11.43)
[2025-05-19 16:14] LABS: Alanine Aminotransferase 16 U/L (0-33); Albumin Level 4.2 g/dL (3.5-5.2); Alkaline Phosphatase 94 U/L (35-105); Anion Gap 16.1 (5-19); Aspartate Amino Transferase 15 U/L (0-32); Blood Urea Nitrogen 14 mg/dL (6-20); Calcium 9.0 mg/dL (8.5-10.5); Carbon Dioxide 24 mmol/L (22-29); Chloride 104 mmol/L (98-107); Creatinine Clr Calc Pharmacy 98.3960; Globulin 3.0 g/dL (1.3-4.6); Glucose 105 mg/dL (65-115); Lipase 37 U/L (13-60); Osmolality Calculated 291 mOsm/kg (285-295); Potassium 4.1 mmol/L (3.5-5.1); Sodium 140 mmol/L (136-145); Total Protein 7.2 g/dL (6.6-8.7)
--- NOTE | 2025-05-19 16:29 | PC.NURSE ---
1600. This nurse asked pt for a stool sample, pt voiced that she didn't have to go at this time. PT aware of need for stool sample.
--- NOTE | 2025-05-19 17:39 | CTR_ITS ---
PROCEDURE INFORMATION: Exam: CT Abdomen And Pelvis With Contrast Exam date and time: 05/19/2025 5:58 PM Age: 50 years old Clinical indication: Abdominal pain; Generalized; Prior surgery; Surgery date: 6+ months; Surgery type: Gb, appy, ablation; Additional info: And pain TECHNIQUE: Imaging protocol: Computed tomography of the abdomen and pelvis with contrast. Radiation optimization: All CT scans at this facility use at least one of these dose optimization techniques: automated exposure control; mA and/or kV adjustment per patient size (includes targeted exams where dose is matched to clinical indication); or iterative reconstruction. Contrast material: OMNIPAQUE 350; Contrast volume: 100 ml; Contrast route: INTRAVENOUS (IV); COMPARISON: US gall bladder [id number] 09/24/2023 7:16 PM RADIATION DOSE METRICS: Total DLP (mGy-cm): 695.33 FINDINGS: Lungs: Lung bases are clear. No pleural effusion. Liver: Normal. No mass. Gallbladder and biliary ducts: The gallbladder has been resected. Pancreas: Normal. No ductal dilation. Spleen: Normal. No splenomegaly. Adrenal glands: Normal. No mass. Kidneys and ureters: Normal. No hydronephrosis. Stomach and bowel: Unremarkable. No obstruction. No mucosal thickening. Appendix: No evidence of appendicitis. Intraperitoneal space: Unremarkable. No free air. No significant fluid collection. Vasculature: Unremarkable. No abdominal aortic aneurysm. Lymph nodes: Unremarkable. No enlarged lymph nodes. Urinary bladder: Unremarkable as visualized. Reproductive: Unremarkable as visualized. Bones/joints: Unremarkable. No acute fracture. Soft tissues: Unremarkable. CT/CT abdomen pelvis w con* [id number] IMPRESSION: No acute findings.
--- NOTE | 2025-05-19 17:43 | PC.NURSE ---
pt went to restroom and provided a small stool sample, pt stool brown, formed, not diarrhea.
[2025-05-19] MEDS: iohexol 350 mg/mL 500 mL Btl (per mL) IV (18:01)
[2025-05-19 19:18] LABS: C.Diff PCR (Lab) NEGATIVE (Negative)
--- NOTE | 2025-05-21 13:04 | ED_ITS ---
HPI - Nausea/Vomiting/Diarrhea 2 General: Chief complaint: Nausea/Vomiting/Diarrhea Stated complaint: diarrhea x2 week, fatigue, nausea Time Seen by Provider: 05/19/25 15:44 History of Present Illness: 50-year-old female patient presents to [facility] emergency department because complaining of nausea vomiting diarrhea x 2 weeks and extremely fatigued. Patient denies any fever. Patient denies any chest pain. Patient denies any shortness of breath. Related Data Home Medications ?Medication ?Instructions ?Recorded ?Confirmed ergocalciferol (vitamin D2) 1,250 1,250 mcg PO .WKLY 0 04/20/22 10/28/24 mcg (50,000 unit) capsule magnesium oxide 400 mg PO DAILY 04/20/22 pantoprazole 40 mg tablet,delayed 40 mg PO DAILY 04/2010/28/24 release topiramate 50 mg tablet (Topamax) 150 mg PO BEDTIME 10/28/24 levothyroxine 75 mcg tablet 75 mcg PO 1XD 12/21/22 modafinil 200 mg tablet 200 mg PO DAILY 12/21/22 Previous Rx's ?Medication ?Instructions ?Recorded promethazine 25 mg tablet 25 mg PO Q6H PRN nausea and 04/02/25 vomiting #20 tabs dicyclomine 10 mg capsule 10 mg PO BID cramping #10 ca ps 05/19/25 ondansetron 4 mg disintegrating 4 mg PO Q8H 3 days #9 tabs 05/19/25 tablet Allergies Allergy/AdvReac Type Severity Reaction Status Date / Time No Known Allergies Allergy Verified 10/28/24 15:42 Review of Systems 2 General: Reports: 10 or more systems reviewed and unremarkable except in HPI and below PFSH ED 2 PFSH: Medical History Bilateral carpal tunnel syndrome Peripheral neuropathy Surgical History History of cholecystectomy Social History Smoking and tobacco/nicotine status: current every day tobacco/nicotine user Alcohol intake: never Substance/Drug Use: former Physical Exam 2 Const: COMMON NORMALS: no acute distress GENERAL APPEARANCE: cooperative and comfortable ORIENTATION/CONSCIOUSNESS: Yes awake, Yes oriented to person, Yes oriented to place and Yes oriented to time HENMT: COMMON NORMALS: normocephalic, atraumatic and hearing grossly normal bilaterally HEAD & SCALP: normocephalic and atraumatic Resp: COMMON NORMALS: normal respiratory effort, No retractions, No use of accessory muscles and clear to auscultation bilaterally AUSCULTATION: clear to auscultation bilaterally Cardio: COMMON NORMALS: regular rate, regular rhythm and No murmurs present (Cardio) RATE: regular rate RHYTHM: regular rhythm GI: COMMON NORMALS: Soft to palpation and No hepatosplenomegaly present A USCULTATION: Yes normoactive bowel sounds PALPATION: Yes Soft to palpation, No Tenderness to palpation present (GI), No Guarding due to palpation present (GI) and Yes No hepatosplenomegaly present Extremity: COMMON NORMALS: normal to inspection, capillary refill normal, no clubbing, cyanosis or edema, no calf tenderness and no pedal edema Neuro: SENSORIUM/ORIENTATION: Yes oriented to person, Yes oriented to place and Yes oriented to time Skin: COMMON NORMALS: no rashes or lesions noted GENERAL SKIN EXAM: no rashes or lesions noted Course 2 Vital Signs: Vital signs: Vital Signs Temperature 97.5 F L 05/19/25 15:03 Pulse Rate 95 05/19/25 15:03 Respiratory Rate 19 H 05/19/25 15:03 Blood Pressure 109/73 05/19/25 15:03 Pulse Oximetry 99 05/19/25 15:03 Oxygen Delivery Me thod Room Air 05/19/25 15:03 MDM - Nausea/Vomiting/Diarrhea Medical Decision Making Patient is well-appearing nontoxic and in no acute distress. 50-year-old female patient presents to the emergency department because complaining of nausea vomiting diarrhea x 2 weeks and extremely fatigued. Patient denies any fever. Patient denies any chest pain. Patient denies any shortness of breath. Patient's labs are reassuring. Patient did have some diffuse abdominal tenderness given the diarrhea nausea and vomiting we did go ahead and CT her abdomen and pelvis there was no acute concerning findings on this. Patient remains stable on the emergency department vital signs stable patient afebrile. Patient's lungs are clear to auscultate. Patient not had no episodes of diarrhea while here in the emergency department I will send patient home with a prescription for Zofran and a prescription for dicyclomine I have advised patient to stay hydrated follow-up with her primary care physician and we talked about return precautions to the emergency department Lab Data 05/19/25 15:50 05/19/25 15:50 Radiology Impressions Abdomen/Pelvis CT 05/19/25 17:39 IMPRESSION: No acute findings. Laboratory Results WBC 7.66 10^3/uL (3.29-11.43) 05/19/25 15:50 RBC 4.78 10^6/uL (3.85-5.65) 05/19/25 15:50 Hgb 14.00 g/dL (11.27-16.99) 05/19/25 15:50 Hct 42.8 % (36-47) 05/19/25 15:50 MCV 89.5 fl (85-98) 05/19/25 15:50 MCH 29.3 pg (27-33) 05/19/25 15:50 MCHC 32.7 g/dL (30-55) 05/19/25 15:50 RDW 13.3 % (12.1-15.1) 05/19/25 15:50 Plt Count 378 10^3/cmm (157-399) 05/19/25 15:50 MPV 8.4 fL (7.4-10.4) 05/19/25 15:50 Neut % (Auto) 54.8 % 05/19/25 15:50 Lymph % (Auto) 33.2 % 05/19/25 15:50 Cottle % (Auto) 6.7 % 05/19/25 15:50 Eos % (Auto) 4.3 % 05/19/25 15:50 Baso % (Auto) 0.9 % 05/19/25 15:50 Neut # (Auto) 4.20 10^3/uL (1.8-7.7) 05/19/25 15:50 Lymph # (Auto) 2.5 10^3/uL (0.8-4.8) 05/19/25 15:50 Cottle # (Auto) 0.5 10^3/uL (0.2-0.9) 05/19/25 15:50 Eos # (Auto) 0.3 10^3/uL (0.0-0.8) 05/19/25 15:50 Baso # (Auto) 0.1 10^3/uL (0.0-0.1) 05/19/25 15:50 Nucleated RBC % (auto) 0 % 05/19/25 15:50 Nucleated RBCs # 0.0 /100WBC 05/19/25 15:50 Sodium 140 mmol/L (136-145) 05/19/25 15:50 Potassium 4.1 mmol/L (3.5-5.1) 05/19/25 15:50 Chloride 104 mmol/L (98-107) 05/19/25 15:50 Carbon Dioxide 24 mmol/L (22-29) 05/19/25 15:50 Anion Gap 16.1 (5-19) 05/19/25 15:50 BUN 14 mg/dL (6-20) 05/19/25 15:50 Creatinine 0.7 mg/dL (0.5-0.9) 05/19/25 15:50 GFR Calculation 88.6 mL/min (90-130) L 05/19/25 15:50 Glucose 105 mg/dL (65-115) 05/19/25 15:50 Calculated Osmolality 291 mOsm/kg (285-295) 05/19/25 15:50 Calcium 9.0 mg/dL (8.5-10.5) 05/19/25 15:50 Total Bilirubin 0.2 mg/dL (0.15-1.2) 05/19/25 15:50 AST 15 U/L (0-32) 05/19/25 15:50 ALT 16 U/L (0-33) 05/19/25 15:50 Alkaline Phosphatase 94 U/L (35-105) 05/19/25 15:50 Total Protein 7.2 g/dL (6.6-8.7) 05/19/25 15:50 Albumin 4.2 g/dL (3.5-5.2) 05/19/25 15:50 Globulin 3.0 g/dL (1.3-4.6) 05/19/25 15:50 Lipase 37 U/L (13-60) 05/19/25 15:50 C. difficile (PCR) Negative (Negative) 05/19/25 17:30 All radiology interpretation(s) finalized by discharge Discharge Plan Discharge Patient Disposition: Home Clinical Impression: Nausea Diarrhea Qualifiers: Diarrhea type: unspecified type Qualified Code(s): R19.7 - Diarrhea, unspecified Condition: Stable Prescriptions: New ondansetron 4 mg tablet,disintegrating 4 mg PO Q8H 3 Days Qty: 9 0RF dicyclomine 10 mg capsule 10 mg PO BID Qty: 10 0RF No Action ergocalciferol (vitamin D2) 1,250 mcg (50,000 unit) capsule 1,250 mcg PO .WKLY pantoprazole 40 mg tablet,delayed release (DR/EC) 40 mg PO DAILY topiramate [Topamax] 50 mg tablet 150 mg PO BEDTIME magnesium oxide 400 mg magnesium tablet 400 mg PO DAILY levothyroxine 75 mcg tablet 75 mcg PO 1XD modafinil 200 mg tablet 200 mg PO DAILY promethazine 25 mg tablet 25 mg PO Q6H PRN (Reason: nausea and vomiting) Qty: 20 0RF Discharge Orders: Discharge ED (Routine); Ordered 05/19/25 Ordered By: Sara Mccann Referrals: Gopi Barrera MD [Primary Care Provider, Family Practice] Discharge Diet: Advance as tolerated Discharge Activity: Increase activity as tolerated Patient Instructions: Acute Diarrhea (ED), Opioid Safety, Pain Management, Patient Portal & [place] Instructions Activity Restrictions/Additional Instructions: Stool test are pending Take meds as directed Follow up with PCP Return to ER with any worsening of symptoms or concerns Print Language: Arabic Coding Level of Care Code ED Contract Law Specialist for Maritza Pickett
== END 2025-05-19 19:17 | disposition home or self-care (01) ==
PROVIDERS: Emergency Medicine; Emergency Provider Registered Nurse; PCP Family Medicine
DX: R11.0 Nausea (principal); R19.7 Diarrhea, unspecified; Z72.0 Tobacco use
CPT/HCPCS: 36415; 74177; 80053; 82274; 83630; 83690; 85025; 87493; 96360; 99285; J7030

== ENCOUNTER 2025-06-11 15:13 | Emergency (ER) | payer MEDICARE, SELFPAY ==
--- OUTSIDE RECORDS SUMMARY | 2022-08-02 06:00 | XMS_ITS | Continuity of Care Document ---
Author Organization [facility] Address [id number] [address] Phone Care Team Providers Care Pharmacy Operations Specialist Name Role Phone Jerald Murphy DDS Unavailable Unavailable Procedures Procedure Date Patient Left / No Show Advance Directives Directive Yes / No Effective Date File Name No Information Encounters Encounter Description Practice Location Reason(s) For Visit Diagnoses Date Provider Providers Copied on Encounter [facility], [id number], [id number], [place] tel:[phone] [facility] No Information Jeffrey Marques. [address] [place], [address], [place]. tel:[phone] Referring Provider: Jerald Murphy, [address] [place], [address]. tel:[phone] Family History Family Member Type Diagnosis Age At Onset No Information Payers Payer name Insurance type Covered libertarian ID Authoriza tion(s) No Information Social History Type Description Quantity Date Captured Comments Sex Female Smoking Status No Information Chief Complaint And Reason For Visit No Information Reason For Referral Reason For Referral No Information History Of Present Illness Encounter Date Complaint History Of Prese nt Illness No Information Functional Status Date Functional Assessmen t No Information Instructions Date Instruction Additional Infor mation No Information Assessments Type Assessment Date No Information Patient Care Teams Name Effective Dates (start - stop) Status Members No Information
--- OUTSIDE RECORDS SUMMARY | 2025-06-11 15:19 | XMS_ITS | Encounter Summary ---
Author Organization [facility] Address [address] [place] [address] Care Team Providers Care Nutrition Educator Name Role Phone Gopi Barrera MD Primary Care Provider [phone] Encounter Details Date Type Department Care Team (Latest Contact Info) Description 10/18/2006 Outpatient Historical [facility] Neuro Psychology [address] [place] [address] Michael Fox, PhD NO ADDRESS ON FILE Depressive Disorder, not Elsewhere Classified (Primary Dx) Social History Tobacco Use Types Packs/Day Years Used Date Smoking Tobacco: Never Assessed Comments Unknown Sex and Gender Information Value Date Recorded Sex Assigned at Not on file 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
--- OUTSIDE RECORDS SUMMARY | 2025-06-11 15:19 | XMS_ITS | Clinical Summary ---
Author Organization [employer] Address [address] [place]: [place] [address] Care Team Providers Care Mechanical Equipment Test Engineer Name Role Phone Gopi Barrera MD Primary Care Provider [phone] Allergies No known active allergies Medications Magnesium [...] on file Legal Sex Female 2:40 AM TRAFFIC SERGEANT Gender Identity Not on file Sexual Orientation [...] - 1-dose 75+ series) 2050 Care Teams Mechanical Equipment Test Engineer Relationship Specialty Start Date End Date Gopi Barrera MD [address] [address] PCP - General 07/09/03
--- OUTSIDE RECORDS SUMMARY | 2025-06-11 15:19 | XMS_ITS | Encounter Summary ---
Author Organization [facility] Address [address] [place] [address] Care Team Providers Care Farmworker Brooder Farm Name Role Phone Gopi Barrera MD Primary Care Provider [phone] Encounter Details Date Type Department Care Team (Late st Contact Info) Description 07/09/2003 Emergency [facility] Emergency Department [address] 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
--- OUTSIDE RECORDS SUMMARY | 2025-06-11 15:19 | XMS_ITS | Encounter Summary ---
Author Organization [employer] Address [address] [place] [address] Care Team Providers Care Dispatcher Maintenance Name Role Phone Gopi Barrera MD Primary Care Provider [phone] Encounter Details Date Type Department Care Team (Latest Contact Info) Description 09/18/2006 Outpatient Historical [facility] Neuro Psychology [address] [place] [address] Michael Fox, PhD NO ADDRESS ON FILE Depressive Disorder, not Elsewhere Classified (Primary Dx) Social History Tobacco Use Types Packs/Day Years Used Date Smoking Tobacco: Never Assessed Comments Unknown Sex and Gender Information Value Date Recorded Sex Assigned at Not on file Legal Sex Female 3:53 AM 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
--- OUTSIDE RECORDS SUMMARY | 2025-06-11 15:19 | XMS_ITS | Encounter Summary ---
Author Organization [facility] Address [address] [place] [address] Care Team Providers Care Statistical Machine Mechanic Name Role Phone Gopi Barrera MD Primary Care Provider [phone] Encounter Details Date Type Department Care Team (Latest Contact Info) Description 08/23/2006 Outpatient Historical [facility] Rheumatology- [place] [address] [place] [address] Caitlin Hernadez MD [address] [place] [address] Viral Infection (Primary Dx) Social History Tobacco Use Types Packs/Day Years Used Date Smoking Tobacco: Never Assessed Comments Unknown Sex and Gender Information Value Date Recorded Sex Assigned at Not on file 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
--- OUTSIDE RECORDS SUMMARY | 2025-06-11 15:19 | XMS_ITS | Encounter Summary ---
Author Organization [facility] Address [address] [place] [address] Care Team Providers Care Straightener Gun Parts Name Role Phone Gopi Barrera MD Primary Care Provider [phone] Encounter Details Date Type Department Care Team (Latest Contact Info) Description 10/11/[address] [facility] Neuro Psychology [address] [place] [address] Michael Fox, PhD NO ADDRESS ON FILE Depressive Disorder, not Elsewhere Classified (Primary Dx) Social History Tobacco Use Types Packs/Day Years Used Date Smoking Tobacco: Never Assessed Comments Unknown Sex and Gender Information Value Date Recorded Sex Assigned at Not on file Legal Sex Female 3:53 AM CLAIM SPECIALIST Gender Identity Not on file Sexual Orientation Not on file documented as of this encounter Plan of Treatment Not on file documented as of this encounter Visit Diagnoses Diagnosis Depressive disorder, not elsewhere classified- Primary documented in this encounter Care Teams Straightener Gun Parts Relationship Specialty Start Date End Date Gopi Barrera MD [address] [place] [phone] PCP - General 07/09/03 documented as of this encounter
--- OUTSIDE RECORDS SUMMARY | 2025-06-11 15:19 | XMS_ITS | Clinical Summary ---
Author Organization [facility] Address [address] [place] [address] Phone Care Team Providers Care Ergonomics Technician Name Role Phone Gopi Barrera MD Primary Care Provider [phone] Allergies No known active allergies Medications Vit 47-Awly-AO-DSS (ADVANCED ) 90-1-50 mg Oral Tab Take [...] on file Legal Sex Female 3:53 AM SKIVER WELT END Gender Identity Not on file Sexual Orientation Not on file Occupation Industry Job Start Date Job End Date Not on file Not on file Not on file Not on file Last Filed Vital Signs Vital Sign Reading Time Taken Comments Blood Pressure 127/86 09/08/2012 4:20 PM SKIVER WELT END Pulse 84 09/08/2012 4:20 PM SKIVER WELT END Temperature 35.8 C (96.4 F) 09/08/2012 4:20 PM SKIVER WELT END Respiratory Rate 20 09/08/2012 4:20 PM SKIVER WELT END Oxygen Saturation 99% 09/08/2012 4:20 PM SKIVER WELT END Inhaled Oxygen Concentration - - Weight 90.7 kg (200 lb) 09/08/2012 4:20 PM SKIVER WELT END Height 162.6 cm (5' 4 ) 09/08/2012 4:20 PM SKIVER WELT END Body Mass Index 34.33 09/08/2012 4:20 PM SKIVER WELT END Plan of Treatment Health Maintenance Due Date [...] Advance Directives For more information, please contact: [phone] * Full Code (Latest Code Status on File) Date Activated Date Inactivated Comments 09/08/2012 4:25 PM 09/08/2012 7:16 PM * Full Code Date Activated Date Inactivated Comments 09/03/2012 3:50 PM 09/03/2012 7:43 PM * Full Code Date Activated Date Inactivated Comments 08/28/2012 11:34 AM 08/28/2012 1:48 PM Care Teams Ergonomics Technician Relationship Specialty Start Date End Date Gopi Barrera MD [address] [phone] PCP - General 07/09/03
--- OUTSIDE RECORDS SUMMARY | 2025-06-11 15:19 | XMS_ITS | Encounter Summary ---
Author Organization [facility] Address [address] [place] [address] Care Team Providers Care Operation Shift Supervisor Name Role Phone Gopi Barrera MD Primary Care Provider [phone] Encounter Details Date Type Department Care Team (Latest Contact Info) Description 08/23/2006 Outpatient Historical [facility] Rheumatology- [place] [address] [place] [address] Caitlin Hernadez MD [address] [place] [address] Rheumatism, Unspecified and Fibrositis (Primary Dx); Viral Infection Social History Tobacco Use Types Packs/Day Years Used Date Smoking Tobacco: Never Assessed Comments Unknown Sex and Gender Information Value Date Recorded Sex Assigned at Not on file Legal Sex Female 3:53 AM HOUSING RELOCATION Gender Identity Not on file Sexual Orientation Not on file documented as of this encounter Plan of Treatment Not on file documented as of this encounter Visit Diagnoses Diagnosis Rheumatism, unspecified and fibrositis- Primary Unspecified viral infection, in conditions classified elsewhere and of unspecified site documented in this encounter Care Teams Operation Shift Supervisor Relationship Specialty Start Date End Date Gopi Barrera MD [address] [phone] PCP - General 07/09/03 documented as of this encounter
--- OUTSIDE RECORDS SUMMARY | 2025-06-11 15:19 | XMS_ITS | Encounter Summary ---
Author Organization [facility] Address [address] [place] [address] Care Team Providers Care Recycling Crew Supervisor Name Role Phone Gopi Barrera MD Primary Care Provider [phone] Encounter Details Date Type Department Care Team (Late st Contact Info) Description 08/29/2012 Abstract [facility] Anatomic Pathology [address] [place] [address] Provider, Abstract Spg NO ADDRESS ON FILE Social History Tobacco Use Types Packs/Day Years Used Date Smoking Tobacco: Former Cigarettes Q uit: 03/05/2012 Alcohol Use Standard Drinks/Week Comments No 0 (1 standard drink = 0.6 oz pur e alcohol) Comments Yes Sex and Gender Information Value Date Recorded Sex Assigned at Not on file Legal Sex Female 3:53 AM BRANCH SALES MANAGER Gender Identity Not on file Sexual [...] * PATHOLOGY REPORT (08/29/2012) PATHOLOGY/CYTOLO GY REPORT [facility] CORRECTED REPORT [facility] ADDENDUM REPORT [facility] REVISED FINAL REPORT [facility] SURGICAL PATHOLOGY [facility] FINAL REPORT [facility] FINAL REPORT [facility] FINAL REPORT [facility] PRELIMINARY REPORT [facility] us Abstract Spg Provider PATHOLOGY/CYTOLOGY ORDERAB LES Final Result [facility] CLIA# [id number] [address] [place] [address] documented in this encounter Visit Diagnoses Not on filedocumented in this encounter Care Teams Recycling Crew Supervisor Relationship Specialty Start Date End Date Gopi Barrera MD [address] [phone] PCP - General 07/09/03 documented as of this encounter
--- OUTSIDE RECORDS SUMMARY | 2025-06-11 15:19 | XMS_ITS | Encounter Summary ---
Author Organization [facility] Address [address] [place] [address] Care Team Providers Care Summer Law Associate Name Role Phone Gopi Barrera MD Primary Care Provider [phone] Encounter Details Date Type Department Care Team (Latest Contact Info) Description 07/18/2006 Outpatient Historical [facility] Endocrinology-[facility] [place] [address] [place] [address] Delroy Rudolph MD NO ADDRESS ON FILE Chronic Lymphocytic Thyroiditis (Primary Dx); Abnormal Weight Gain Social History Tobacco Use Types Packs/Day Years Used Date Smoking Tobacco: Never Assessed Comments Unknown Sex and Gender Information Value Date Recorded Sex Assigned at Not on file Legal Sex Female 3:53 AM PRODUCTION MANUFACTURING WORKER Gender Identity Not on file Sexual Orientation Not on file documented as of this encounter Plan of Treatment Not on file documented as of this encounter Visit Diagnoses Diagnosis Chronic lymphocytic thyroiditis- Primary Abnormal weight gain documented in this encounter Care Teams Summer Law Associate Relationship Specialty Start Date End Date Gopi Barrera MD [address] [phone] PCP - General 07/09/03 documented as of this encounter
--- OUTSIDE RECORDS SUMMARY | 2025-06-11 15:19 | XMS_ITS | Encounter Summary ---
Author Organization [facility] Address [address] [place] [address] Care Team Providers Care Distillery Manager Name Role Phone Gopi Barrera MD Primary Care Provider [phone] Encounter Details Date Type Department Care Team (Latest Contact Info) Description 10/18/2006 Outpatient Historical [facility] Rheumatology- [place] [address] [place] [address] Caitlin Hernadez MD [address] [place], [place] [id number] Rheumatism, Unspecified and Fibrositis (Primary Dx) Social History Tobacco Use Types Packs/Day Years Used Date Smoking Tobacco: Never Assessed Comments Unknown Sex and Gender Information Value Date Recorded Sex Assigned at Not on file Legal Sex Female 3:53 AM VALET SERVICE ATTENDANT Gender Identity Not on file Sexual Orientation Not on file documented as of this encounter Plan of Treatment Not on file documented as of this encounter Visit Diagnoses Diagnosis Rheumatism, unspecified and fibrositis- Primary documented in this encounter Care Teams Distillery Manager Relationship Specialty Start Date End Date Gopi Barrera MD [address] [address] PCP - General 07/09/03 documented as of this encounter
[2025-06-11 15:39] VITALS: BP 125/76; PULSE 112; RESP 16; TEMP 36.9; O2SAT 95; BMI 31.0
--- NOTE | 2025-06-11 16:01 | CTR_ITS ---
PROCEDURE INFORMATION: Exam: CT Neck With Contrast Exam date and time: 06/11/2025 4:34 PM Age: 50 years old Clinical indication: Painful swallowing; Additional info: Severe left face/neck pain, fever, on aug for dental infecti TECHNIQUE: Imaging protocol: Computed tomography of the neck with contrast. Radiation optimization: All CT scans at this facility use at least one of these dose optimization techniques: automated exposure control; mA and/or kV adjustment per patient size (includes targeted exams where dose is matched to clinical indication); or iterative reconstruction. Contrast material: OMNIPAQUE 350; Contrast volume: 100 ml; Contrast route: INTRAVENOUS (IV); COMPARISON: CT neck w con* [id number] 11/13/2024 10:03 AM RADIATION DOSE METRICS: Total DLP (mGy-cm): 249.21 FINDINGS: Salivary glands: Normal. Glands are normal in size. Pharynx: Unremarkable. No significant tonsillar enlargement. Larynx: Unremarkable. Epiglottis is normal. Thyroid: Normal. No enlarged or calcified nodules. Trachea: Visualized trachea is unremarkable. Lungs: 13 x 11 mm peripheral soft tissue nodule in the left upper lobe. Lymph nodes: Upper mediastinal images demonstrate a partially imaged 13 mm aortopulmonary window lymph node. No cervical hayes enlargement. 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 Bones/joints: Degenerative changes again noted associated with the anterior articulation of C1 and C2. No suspicious osseous lesions. 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 Soft tissues: Unremarkable. No significant soft tissue swelling. CT/CT neck w con* [id number] IMPRESSION: 1. No evidence for neck mass or peritonsillar abscess. 2. 13 mm left upper lobe pulmonary nodule. Partially imaged mediastinal lymph node enlargement. Contrast-enhanced chest CT evaluation is recommended to assess for an inflammatory or neoplastic process.
--- NOTE | 2025-06-11 16:19 | W.ED.DENTAL ---
HPI - Dental/Oral General: Chief complaint: Dental/Oral Stated complaint: l face pain Time Seen by Provider: 06/11/25 15:47 Source: patient Mode of arrival: ambulatory Limitations: no limitations History of Present Illness: Patient is a 50-year-old female who presents the emergency department complaining of severe left-sided facial pain and neck pain for the past week. Recently was seen in urgent care, diagnosed with the infection started on antibiotics and also steroids. She states she has no teeth to the left side of her face, is concerned of swelling causing the pain. Denies any issues swallowing or pain with swallowing. States pain has only gotten worse after starting the Augmentin and steroids. She is reporting intermittent fevers at home, states that nothing has helped with her pain. Currently at this time is mildly tachycardic, however afebrile. States she has not taken any medication since this morning. Denies any paralysis to the left side of her face or numbness. It is made better by palpation to the area and massaging, worsened with moving her jaw. States that the symptoms have moved down into her left neck now, and she has had intermittent lymphadenopathy. No other symptoms reported at this time. Duration: constant Severity: severe Relieving factors: other (Palpation) Exacerbating factors: chewing Context: history of dental caries and poor dental care Associated symptoms: Reports ear or mastoid pain and fever(s) Related Data Home Medications ?Medication ?Instructions ?Recorded ?Confirmed ergocalciferol (vitamin D2) 1,250 1,250 mcg PO .WKLY 04/20/22 06/07/25 mcg (50,000 unit) capsule magnesium oxide 400 mg PO DAILY 04/20/22 06/07/25 pantoprazole 40 mg tablet,delayed 40 mg PO DAILY 04/20/22 06/07/25 release topiramate 50 mg tablet (Topamax) 150 mg PO BEDTIME 04/20/22 06/07/25 levothyroxine 75 mcg tablet 75 mcg PO 1XD 12/21/22 06/07/25 modafinil 200 mg tablet 200 mg PO DAILY 12/21/22 06/07/25 fluoxetine 40 mg capsule 60 mg PO DAILY 06/07/25 06/07/25 Previous Rx's ?Medication ?Instructions ?Recorded amoxicillin 875 mg-potassium 1 tab PO BID 7 days #14 tabs 06/07/25 clavulanate 125 mg tablet ketorolac 10 mg tablet 10 mg PO Q8H PRN pain #15 tabs 06/11/25 Allergies Allergy/AdvReac Type Severity Reaction Status Date / Time No Known Allergies Allergy Verified 06/11/25 15:43 Review of Systems General: Reports: 10 or more systems reviewed and unremarkable except in HPI and below Const: Reports: fever(s); Denies: chills or fatigue Eyes: Denies: change in vision ENMT: Reports: dental pain, ear or mastoid pain and sinus pain; Denies: throat pain, ear discharge or nasal discharge Card: Denies: chest pain, palpitations, swelling of feet/ankles or lightheadedness Resp: Denies: dyspnea, productive cough or wheezing GI: Denies: abdominal pain, nausea, vomiting, diarrhea or constipation : Denies: flank pain, difficulty voiding, dysuria or urinary frequency Musc: Reports: neck pain; Denies: back pain or joint pain Skin/Breast: Denies: rash Neuro: Denies: headache(s), numbness in extremities or weakness in extremities PFSH ED PFSH: Medical History Bilateral carpal tunnel syndrome Peripheral neuropathy Surgical History History of cholecystectomy Social History Smoking and tobacco/nicotine status: current every day tobacco/nicotine user (vapes) Alcohol intake: never Substance/Drug Use: former Physical Exam Const: COMMON NORMALS: no acute distress and healthy appearing GENERAL APPEARANCE: cooperative and well developed OTHER: Appears uncomfortable secondary to pain HENMT: COMMON NORMALS: normocephalic, atraumatic, hearing grossly normal bilaterally, external ears normal, EAC's normal, TM's normal bilaterally, Normal external nose present and Normal nasal mucous membranes and turbinates present HEAD & SCALP: normal to inspection, normocephalic and atraumatic FACE & SINUS: Facial tenderness on exam of face and sinuses on the left mandible, maxilla and angle of jaw NOSE: Normal external nose present, Normal nares present, No nasal polyps present and Normal nasal mucous membranes and turbinates present EXTERNAL EAR: Yes external ears normal EXTERNAL AUDITORY CANAL: EAC's normal TYMPANIC MEMBRANE: TM's normal bilaterally MOUTH: Normal oral and palatal mucosa present THROAT: posterior oropharynx normal and tonsils normal OTHER: No gingival edema or erythema. Left upper and lower missing teeth. Positive trismus Eye: COMMON NORMALS: EOMs intact bilaterally, conjunctivae normal and normal visual menendez by confrontation GENERAL EYE: appearance normal, both eyes and all related structures CONJUNCTIVA: Yes conjunctivae normal Neck/C-Spine: COMMON NORMALS: full ROM, no lymphadenopathy, supple and no meningeal signs GENERAL: Yes normal visual inspection Chest: COMMONS NORMALS: normal inspection of the chest Resp: COMMON NORMALS: normal respiratory effort and clear to auscultation bilaterally AUSCULTATION: clear to auscultation bilaterally Cardio: COMMON NORMALS: regular rate and regular rhythm RATE: regular rate RHYTHM: regular rhythm HEART SOUNDS: no gallops, no murmurs and no rubs Extremity: COMMON NORMALS: normal to inspection, full ROM and capillary refill normal Neuro: MENINGEAL SIGNS: Yes no meningeal signs Skin: COMMON NORMALS: no rashes or lesions noted GENERAL SKIN EXAM: no rashes or lesions noted Course Vital Signs: Vital signs: Vital Signs Temperature 98.5 F 06/11/25 15:39 Pulse Rate 112 H 06/11/25 15:39 Respiratory Rate 16 06/11/25 15:39 Blood Pressure 125/76 06/11/25 15:39 Pulse Oximetry 95 06/11/25 15:39 Oxygen Delivery Me thod Room Air 06/11/25 15:39 MDM - Dental/Oral Medical Decision Making Patient presenting for left-sided facial pain has been bothering her for days now. Started on Augmentin and steroids from urgent care recently for ear infection. Pain was primarily to the left masseter/TMJ joint, normal exam otherwise. She states the pain was severe 10/10, so CT ordered which was negative for any mass or abscess. Her labs are also negative. I suspect TMJ, she notes significant treatment after Toradol. Will send Toradol and have her treat conservatively otherwise at home. Discharge at this time. Lab Data 06/11/25 16:16 06/11/25 16:[address] 06/11/25 16:01 IMPRESSION: 1. No evidence for neck mass or peritonsillar abscess. 2. 13 mm left upper lobe pulmonary nodule. Partially imaged mediastinal lymph node enlargement. Contrast-enhanced chest CT evaluation is recommended to assess for an inflammatory or neoplastic process. Laboratory Results WBC 9.71 10^3/uL (3.29-11.43) 06/11/25 16:16 RBC 4.74 10^6/uL (3.85-5.65) 06/11/25 16:16 Hgb 14.40 g/dL (11.27-16.99) 06/11/25 16:16 Hct 43.2 % (36-47) 06/11/25 16:16 MCV 91.1 fl (85-98) 06/11/25 16:16 MCH 30.4 pg (27-33) 06/11/25 16:16 MCHC 33.3 g/dL (30-55) 06/11/25 16:16 RDW 13.2 % (12.1-15.1) 06/11/25 16:16 Plt Count 339 10^3/cmm (157-399) 06/11/25 16:16 MPV 8.5 fL (7.4-10.4) 06/11/25 16:16 Neut % (Auto) 61.4 % 06/11/25 16:16 Lymph % (Auto) 26.4 % 06/11/25 16:16 [place] % (Auto) 7.7 % 06/11/25 16:16 Eos % (Auto) 3.2 % 06/11/25 16:16 Baso % (Auto) 0.7 % 06/11/25 16:16 Neut # (Auto) 5.96 10^3/uL (1.8-7.7) 06/11/25 16:16 Lymph # (Auto) 2.6 10^3/uL (0.8-4.8) 06/11/25 16:16 [place] # (Auto) 0.8 10^3/uL (0.2-0.9) 06/11/25 16:16 Eos # (Auto) 0.3 10^3/uL (0.0-0.8) 06/11/25 16:16 Baso # (Auto) 0.1 10^3/uL (0.0-0.1) 06/11/25 16:16 Nucleated RBC % (auto) 0 % 06/11/25 16:16 Nucleated RBCs # 0.0 /100WBC 06/11/25 16:16 Sodium 139 mmol/L (136-145) 06/11/25 16:16 Potassium 4.1 mmol/L (3.5-5.1) 06/11/25 16:16 Chloride 106 mmol/L (98-107) 06/11/25 16:16 Carbon Dioxide 22 mmol/L (22-29) 06/11/25 16:16 Anion Gap 15.1 (5-19) 06/11/25 16:16 BUN 17 mg/dL (6-20) 06/11/25 16:16 Creatinine 0.8 mg/dL (0.5-0.9) 06/11/25 16:16 GFR Calculation 75.9 mL/min (90-130) L 06/11/25 16:16 Glucose 93 mg/dL (65-115) 06/11/25 16:16 Calculated Osmolality 289 mOsm/kg (285-295) 06/11/25 16:16 Calcium 9.1 mg/dL (8.5-10.5) 06/11/25 16:16 Total Bilirubin 0.2 mg/dL (0.15-1.2) 06/11/25 16:16 AST 23 U/L (0-32) 06/11/25 16:16 ALT 24 U/L (0-33) 06/11/25 16:16 Alkaline Phosphatase 88 U/L (35-105) 06/11/25 16:16 Total Protein 6.9 g/dL (6.6-8.7) 06/11/25 16:16 Albumin 4.0 g/dL (3.5-5.2) 06/11/25 16:16 Globulin 2.9 g/dL (1.3-4.6) 06/11/25 16:16 All radiology interpretation(s) finalized by discharge Discharge Plan Discharge Patient Disposition: Home Clinical Impression: TMJ (temporomandibular joint disorder) Condition: Stable Prescriptions: New ketorolac 10 mg tablet 10 mg PO Q8H PRN (Reason: pain) Qty: 15 0RF No Action ergocalciferol (vitamin D2) 1,250 mcg (50,000 unit) capsule 1,250 mcg PO .WKLY pantoprazole 40 mg tablet,delayed release (DR/EC) 40 mg PO DAILY topiramate [Topamax] 50 mg tablet 150 mg PO BEDTIME magnesium oxide 400 mg magnesium tablet 400 mg PO DAILY fluoxetine 40 mg capsule 60 mg PO DAILY amoxicillin-pot clavulanate 875-125 mg tablet 1 tab PO BID 7 Days Qty: 14 0RF levothyroxine 75 mcg tablet 75 mcg PO 1XD modafinil 200 mg tablet 200 mg PO DAILY Discharge Orders: Discharge ED (Routine); Ordered 06/11/25 Ordered By: Maicol Hamilton Referrals: Gopi Barrera MD [Primary Care Provider, [facility]] Patient Instructions: Patient Portal & [place] Instructions Activity Restrictions/Additional Instructions: TMJ Disorder Discharge Diagnosis: Temporomandibular joint (TMJ) disorder, with normal maxillofacial and neck CT and unremarkable laboratory results. Discharge Instructions for Home Management Medication: - Ketorolac (Toradol): Take as prescribed for pain control. Do not exceed the recommended duration (typically <= days for oral ketorolac due to risk of gastrointestinal, renal, and bleeding complications). Take with food to minimize gastrointestinal upset. Avoid concurrent use of other NSAIDs unless specifically instructed. - Monitor for side effects: Stop ketorolac and seek medical attention if you experience severe abdominal pain, black or bloody stools, vomiting blood, new or worsening shortness of breath, swelling, or signs of an allergic reaction. Non-Pharmacologic Management (First-Line): - Soft diet: Eat soft foods and avoid chewing gum, hard, or chewy foods to reduce joint strain. - Jaw rest: Limit wide mouth opening (e.g., yawning, singing, large bites). Avoid clenching or grinding teeth. - Moist heat or cold packs: Apply to the affected area for 15?20 minutes several times daily as needed for pain. - Self-care and education: Practice good sleep hygiene and stress reduction techniques. Awareness of jaw position and relaxation exercises can help reduce muscle tension. - Physical therapy: Therapeutic jaw exercises and manual therapy have demonstrated benefit in improving pain and function. Referral to a physical therapist with experience in TMD is recommended for persistent symptoms. Additional Treatment Options: - Other pharmacologic agents: For persistent or severe pain, consider muscle relaxants (e.g., cyclobenzaprine), low-dose tricyclic antidepressants, or gabapentin, particularly if there is a chronic pain component. - Occlusal splints: Custom oral appliances may be considered, especially if bruxism or malocclusion is present, though evidence for efficacy is mixed. - Cognitive-behavioral therapy (CBT): May be beneficial for patients with significant psychosocial stressors or chronic pain. - Intra-articular injections: Options such as hyaluronic acid, platelet-rich plasma, or dextrose prolotherapy may be considered in refractory cases, though supporting evidence is limited. - Referral: If symptoms persist despite conservative management, referral to an oral and maxillofacial surgeon or pain specialist is appropriate. When to Seek Medical Attention: - Worsening pain, swelling, or inability to open the mouth - Signs of infection (fever, redness, drainage) - New neurological symptoms (numbness, weakness) - Adverse effects from medication as described above Follow-Up: - Schedule follow-up with your primary care provider or referring specialist within 1?2 weeks, or sooner if symptoms worsen. Summary: Most TMJ disorders improve with conservative, noninvasive management. Adherence to self-care, physical therapy, and short-term use of NSAIDs like ketorolac is supported by current evidence. Escalation to additional therapies should be individualized based on response and symptom persistence. Print Language: Romansh Coding Level of Care Code ED Glaze Grinder for Maritza Pickett
[2025-06-11 16:35] LABS: Hematocrit 43.2 % (36-47); Hemoglobin 14.40 g/dL (11.27-16.99); Mean Corpuscular HGB Conc 33.3 g/dL (30-55); Mean Corpuscular Hemoglobin 30.4 pg (27-33); Mean Corpuscular Volume 91.1 fl (85-98); Nucleated Red Blood Cells % 0 %; Platelet Count 339 10^3/cmm (157-399); Red Blood Count 4.74 10^6/uL (3.85-5.65); White Blood Count 9.71 10^3/uL (3.29-11.43)
[2025-06-11] MEDS: iohexol 350 mg/mL 500 mL Btl (per mL) IV (16:35)
[2025-06-11 16:50] LABS: Alanine Aminotransferase 24 U/L (0-33); Albumin Level 4.0 g/dL (3.5-5.2); Alkaline Phosphatase 88 U/L (35-105); Blood Urea Nitrogen 17 mg/dL (6-20); Calcium 9.1 mg/dL (8.5-10.5); Carbon Dioxide 22 mmol/L (22-29); Chloride 106 mmol/L (98-107); Creatinine Clr Calc Pharmacy 87.2047; Globulin 2.9 g/dL (1.3-4.6); Glucose 93 mg/dL (65-115); Osmolality Calculated 289 mOsm/kg (285-295); Sodium 139 mmol/L (136-145); Total Protein 6.9 g/dL (6.6-8.7)
[2025-06-11 16:53] LABS: Anion Gap 15.1 (5-19); Aspartate Amino Transferase 23 U/L (0-32); Potassium 4.1 mmol/L (3.5-5.1)
== END 2025-06-11 17:47 | disposition home or self-care (01) ==
PROVIDERS: Emergency Provider Physician Assistant; PCP Family Medicine
DX: M26.602 Left temporomandibular joint disorder, unspecified (principal); F17.210 Nicotine dependence, cigarettes, uncomplicated
CPT/HCPCS: 70491; 80053; 85025; 96374; 99285; J1885

== ENCOUNTER 2025-07-28 20:06 | Outpatient (CLI) | payer MEDICARE, SELFPAY | END 2025-07-28 20:07 | disposition home or self-care (01) | LOC: SLEEP 20:08 | PROVIDERS: PCP Family Medicine; Visit Provider Internal Medicine Pulmonary Disease | DX: G47.33 Obstructive sleep apnea (adult) (pediatric) (principal) | CPT/HCPCS: 95810 ==

== ENCOUNTER 2025-09-23 14:48 | Emergency (ER) | payer MEDICARE, SELFPAY ==
[2025-09-23 14:49] VITALS: BP 115/88; PULSE 111; RESP 30; TEMP 36.7; O2SAT 99; BMI 34.3
--- NOTE | 2025-09-23 15:47 | W.ED.NAVMDI ---
HPI - Nausea/Vomiting/Diarrhea General: Chief complaint: Nausea/Vomiting/Diarrhea Stated complaint: NVD Time Seen by Provider: 09/23/25 15:05 Source: patient Mode of arrival: ambulatory Limitations: no limitations History of Present Illness: Patient is a 50-year-old female presents the emergency department complaining of nausea vomiting diarrhea for the past couple of days. Symptoms began Sunday, states that she has been unable to keep down any food or drink, and has had numerous episodes of vomiting and diarrhea. No recent antibiotic use, there is sick contacts at home with her 2 children. Does not reporting fevers but notes chills. Overall just feels weak and has no appetite. No pertinent past medical history. She is minimally tachycardic at this time, and slightly tachypneic but does state that she feels quite anxious from her symptoms. Diffuse abdominal pain noted. No blood in her vomit or stools. No chest pain or shortness of breath. MD elicited complaint: nausea, vomiting, diarrhea and abdominal pain Onset (ago): day(s) Associated nausea: Yes Associated abdominal pain: Yes Location of pain: Diffuse Severity: moderate Context: sick contacts Associated symtoms: Reports anxiety, malaise and nausea; Denies chest pain, diaphoresis, dizziness, dysuria, headache(s) or palpitations Related Data Home Medications ?Medication ?Instructions ?Recorded ?Confirmed ergocalciferol (vitamin D2) 1,250 1,250 mcg PO .WKLY 04/20/22 06/07/25 mcg (50,000 unit) capsule magnesium oxide 400 mg PO DAILY 04/20/22 06/07/25 pantoprazole 40 mg tablet,delayed 40 mg PO DAILY 04/20/22 06/07/25 release topiramate 50 mg tablet (Topamax) 150 mg PO BEDTIME 04/20/22 06/07/25 levothyroxine 75 mcg tablet 75 mcg PO 1XD 12/21/22 06/07/25 modafinil 200 mg tablet 200 mg PO DAILY 12/21/22 06/07/25 fluoxetine 40 mg capsule 60 mg PO DAILY 06/07/25 06/07/25 Previous Rx's ?Medication ?Instructions ?Recorded amoxicillin 875 mg-potassium 1 tab PO BID 7 days #14 tabs 06/07/25 clavulanate 125 mg tablet ketorolac 10 mg tablet 10 mg PO Q8H PRN pain #15 tabs 06/11/25 ondansetron 4 mg disintegrating 4 mg PO TID PRN nausea and 09/23/25 tablet vomiting #30 tabs Allergies Allergy/AdvReac Type Severity Reaction Status Date / Time No Known Allergies Allergy Verified 06/11/25 15:43 Review of Systems General: Reports: 10 or more systems reviewed and unremarkable except in HPI and below Const: Reports: chills, change in appetite and malaise; Denies: fever(s) or diaphoresis ENMT: Denies: throat pain or hoarseness Card: Denies: chest pain, palpitations or lightheadedness Resp: Denies: dyspnea, productive cough or wheezing GI: Reports: abdominal pain, nausea, vomiting and diarrhea : Denies: flank pain, difficulty voiding, dysuria, urinary frequency or urinary urgency Musc: Denies: neck pain or back pain Skin/Breast: Denies: rash or new lesions Neuro: Denies: headache(s) or dizziness Psych: Reports: anxiety PFSH ED PFSH: Medical History Bilateral carpal tunnel syndrome Peripheral neuropathy Surgical History History of cholecystectomy Social History Smoking and tobacco/nicotine status: current every day tobacco/nicotine user (vapes) Alcohol intake: never Substance/Drug Use: former Physical Exam Const: COMMON NORMALS: no acute distress, average body habitus, patient oriented x3, no limitations, healthy appearing, alert and well nourished GENERAL APPEARANCE: cooperative and anxious ORIENTATION/CONSCIOUSNESS: Yes awake OTHER: nontoxic HENMT: OTHER: dry oral mucosa Neck/C-Spine: COMMON NORMALS: full ROM, supple and no meningeal signs Resp: COMMON NORMALS: normal respiratory effort, No retractions, No use of accessory muscles and clear to auscultation bilaterally AUSCULTATION: clear to auscultation bilaterally, no crackles, no rales, no rhonchi and no wheezes Cardio: COMMON NORMALS: regular rhythm, No gallops present (Cardio), No clicks present (Cardio), No murmurs present (Cardio) and No rub (Cardio) RATE: tachycardic RHYTHM: regular rhythm GI: COMMON NORMALS: Normal to inspection, nondistended, normoactive bowel sounds present, Soft to palpation, non-tender, No hepatosplenomegaly present and no masses AUSCULTATION: Yes normoactive bowel sounds PALPATION: Yes Soft to palpation, No Guarding due to palpation present (GI), No Rigid due to palpation and Yes No hepatosplenomegaly present RECTAL EXAM: deferred Extremity: COMMON NORMALS: normal to inspection and full ROM Neuro: COMMON NORMALS: patient oriented x3, moves all extremities, no focal motor deficits and no sensory deficits noted SENSORIUM/ORIENTATION: Yes alert MENINGEAL SIGNS: Yes no meningeal signs Skin: COMMON NORMALS: no rashes or lesions noted GENERAL SKIN EXAM: no rashes or lesions noted Course Vital Signs: Vital signs: Vital Signs Temperature 98.0 F 09/23/25 14:49 Pulse Rate 96 09/23/25 18:06 Respiratory Rate 18 09/23/25 18:06 Blood Pressure 107/75 09/23/25 18:06 Pulse Oximetry 99 09/23/25 18:06 Oxygen Delivery Me thod Room Air 09/23/25 14:49 MDM - Nausea/Vomiting/Diarrhea Medical Decision Making Patient here with vomiting diarrhea for the past day or so, has 2 sick children at home as well. Hemodynamically stable at time of examination nontoxic, though does appear anxious. After fluids and nausea medications Emergency Department states that she feels quite a bit better. With her labs appears to be an element of mild dehydration however clinically stable for discharge home. Suspect viral gastroenteritis as likely etiology for her dehydration. Lab Data 09/23/25 15:53 09/23/25 15:53 Laboratory Results WBC 6.90 10^3/uL (3.29-11.43) 09/23/25 15:53 RBC 4.99 10^6/uL (3.85-5.65) 09/23/25 15:53 Hgb 14.40 g/dL (11.27-16.99) 09/23/25 15:53 Hct 43.7 % (36-47) 09/23/25 15:53 MCV 87.6 fl (85-98) 09/23/25 15:53 MCH 28.9 pg (27-33) 09/23/25 15:53 MCHC 33.0 g/dL (30-55) 09/23/25 15:53 RDW 13.3 % (12.1-15.1) 09/23/25 15:53 Plt Count 324 10^3/cmm (157-399) 09/23/25 15:53 MPV 8.1 fL (7.4-10.4) 09/23/25 15:53 Neut % (Auto) 57.3 % 09/23/25 15:53 Lymph % (Auto) 28.3 % 09/23/25 15:53 [place] % (Auto) 10.7 % 09/23/25 15:53 Eos % (Auto) 2.9 % 09/23/25 15:53 Baso % (Auto) 0.4 % 09/23/25 15:53 Neut # (Auto) 3.95 10^3/uL (1.8-7.7) 09/23/25 15:53 Lymph # (Auto) 2.0 10^3/uL (0.8-4.8) 09/23/25 15:53 [place] # (Auto) 0.7 10^3/uL (0.2-0.9) 09/23/25 15:53 Eos # (Auto) 0.2 10^3/uL (0.0-0.8) 09/23/25 15:53 Baso # (Auto) 0.0 10^3/uL (0.0-0.1) 09/23/25 15:53 Nucleated RBC % (auto) 0 % 09/23/25 15:53 Nucleated RBCs # 0.0 /100WBC 09/23/25 15:53 Sodium 142 mmol/L (136-145) 09/23/25 15:53 Potassium 3.5 mmol/L (3.5-5.1) 09/23/25 15:53 Chloride 108 mmol/L (98-107) H 09/23/25 15:53 Carbon Dioxide 20 mmol/L (22-29) L 09/23/25 15:53 Anion Gap 17.5 (5-19) 09/23/25 15:53 BUN 10 mg/dL (6-20) 09/23/25 15:53 Creatinine 0.7 mg/dL (0.5-0.9) 09/23/25 15:53 GFR Calculation 88.6 mL/min (90-130) L 09/23/25 15:53 Glucose 102 mg/dL (65-115) 09/23/25 15:53 Calculated Osmolality 293 mOsm/kg (285-295) 09/23/25 15:53 Calcium 8.6 mg/dL (8.5-10.5) 09/23/25 15:53 Total Bilirubin 0.3 mg/dL (0.15-1.2) 09/23/25 15:53 AST 17 U/L (0-32) 09/23/25 15:53 ALT 16 U/L (0-33) 09/23/25 15:53 Alkaline Phosphatase 92 U/L (35-105) 09/23/25 15:53 Total Protein 7.3 g/dL (6.6-8.7) 09/23/25 15:53 Albumin 4.2 g/dL (3.5-5.2) 09/23/25 15:53 Globulin 3.1 g/dL (1.3-4.6) 09/23/25 15:53 Lipase 145 U/L (13-60) H 09/23/25 15:53 No radiology studies performed this visit Discharge Plan Discharge Patient Disposition: Home Clinical Impression: Gastroenteritis, Dehydration Condition: Stable Prescriptions: New ondansetron 4 mg tablet,disintegrating 4 mg PO TID PRN (Reason: nausea and vomiting) Qty: 30 0RF No Action ergocalciferol (vitamin D2) 1,250 mcg (50,000 unit) capsule 1,250 mcg PO .WKLY pantoprazole 40 mg tablet,delayed release (DR/EC) 40 mg PO DAILY topiramate [Topamax] 50 mg tablet 150 mg PO BEDTIME magnesium oxide 400 mg magnesium tablet 400 mg PO DAILY fluoxetine 40 mg capsule 60 mg PO DAILY amoxicillin-pot clavulanate 875-125 mg tablet 1 tab PO BID 7 Days Qty: 14 0RF levothyroxine 75 mcg tablet 75 mcg PO 1XD modafinil 200 mg tablet 200 mg PO DAILY ketorolac 10 mg tablet 10 mg PO Q8H PRN (Reason: pain) Qty: 15 0RF Discharge Orders: Discharge ED (Routine); Ordered 09/23/25 Ordered By: Maicol Hamilton Referrals: Gopi Barrera MD [Primary Care Provider, Family Practice] Patient Instructions: Patient Portal & [place] Instructions Activity Restrictions/Additional Instructions: Viral Gastroenteritis Discharge You have been diagnosed with viral gastroenteritis ( stomach flu ) and dehydration, which improved after treatment in the emergency department. Here are instructions to help you recover at home: 1. Hydration - Drink plenty of fluids to replace what you lose from diarrhea or vomiting. The best choices are oral rehydration solutions (ORS) like Pedialyte, Enfalyte, or Ceralyte, which help restore both water and important salts (electrolytes). - If you do not have ORS, you can use clear broths, diluted juices, or sports drinks, but these are not as effective as ORS for replacing lost salts. - Take small, frequent sips if you feel nauseated. Aim to drink enough so that your urine is light yellow and you are urinating regularly. 2. Diet - Once you can keep fluids down, return to your normal diet as soon as possible. Eat small, frequent meals. Good choices include rice, toast, bananas, applesauce, crackers, potatoes, and soups. - Avoid fatty, spicy, or very sweet foods until you feel better. - Dairy products may cause more stomach upset for some people; avoid them if they make your symptoms worse. 3. Symptom Relief - You may use anti-nausea medications as prescribed. - [id number] anti-diarrheal medicines (like loperamide) can help with watery diarrhea, but do not use them if you have blood in your stool or a high fever. - Rest as needed. 4. Preventing Spread - Wash your hands well with soap and water after using the bathroom and before eating or preparing food. - Avoid preparing food for others until you have been symptom-free for at least 48 hours. - Clean bathroom surfaces and shared items with disinfectant. 5. When to Seek Medical Attention - Return to the emergency department or contact your doctor if you: - Cannot keep fluids down for more than 24 hours - Have signs of dehydration (very little urine, dry mouth, dizziness, confusion) - Have blood in your stool or vomit - Develop a high fever (over 102?F) - Experience severe abdominal pain Most cases of viral gastroenteritis improve within a few days. Careful attention to hydration and gradual return to normal eating are the keys to recovery. Print Language: Romanian Coding Level of Care Code ED Regional Geodetic Advisor for Maritza Pickett
[2025-09-23] MEDS: ondansetron 2 mg/ML SDV 2 mL 4 MG IVP (15:54)
[2025-09-23 16:02] LABS: Hematocrit 43.7 % (36-47); Hemoglobin 14.40 g/dL (11.27-16.99); Mean Corpuscular HGB Conc 33.0 g/dL (30-55); Mean Corpuscular Hemoglobin 28.9 pg (27-33); Mean Corpuscular Volume 87.6 fl (85-98); Nucleated Red Blood Cells % 0 %; Platelet Count 324 10^3/cmm (157-399); Red Blood Count 4.99 10^6/uL (3.85-5.65); White Blood Count 6.90 10^3/uL (3.29-11.43)
[2025-09-23 16:16] LABS: Alanine Aminotransferase 16 U/L (0-33); Albumin Level 4.2 g/dL (3.5-5.2); Alkaline Phosphatase 92 U/L (35-105); Anion Gap 17.5 (5-19); Aspartate Amino Transferase 17 U/L (0-32); Blood Urea Nitrogen 10 mg/dL (6-20); Calcium 8.6 mg/dL (8.5-10.5); Carbon Dioxide 20 mmol/L (22-29); Chloride 108 mmol/L (98-107); Globulin 3.1 g/dL (1.3-4.6); Glucose 102 mg/dL (65-115); Lipase 145 U/L (13-60); Osmolality Calculated 293 mOsm/kg (285-295); Potassium 3.5 mmol/L (3.5-5.1); Sodium 142 mmol/L (136-145); Total Protein 7.3 g/dL (6.6-8.7)
--- OUTSIDE RECORDS SUMMARY | 2025-09-23 17:45 | XMS_ITS | Data Portability ---
Author Organization HARIKA Mat Cartagena [facility] HospitalRandyTIMOTEO PadillaPRESBYTERIAN KASEMAN HOSPITALAshlie [facility] Address [address] [facility] [address] [place] [address] Care Team Providers Care Branch Service Leader Name Role Phone FRACISCO BARRERA Primary Care Provider Assessment No assessment recorded. Plan of Treatment Reminders Order Date Submit Date Provider Last Modified By Organization Details Last Modified Time Details Appointments RECHECK 15 2024 08:30A Romain Barrera MD Not available Not available Not available Lab None recorded. Referral None recorded. Procedures None recorded. Surgeries None recorded. Imaging None recorded. Medication Orders Victoza 3-Hal 0.6 mg/0.1 mL (18 mg/3 mL) subcutane ous pen injector [facility]24 [id number], [address], [place], [place], [id number], 09/08/2025 10:26:16 Zepbound 2.5 mg/0.5 mL subcutane ous pen injector 2024 [id number], [address], [place], [place], [id number], 09/08/2025 09:57:59 Zepbound 5 mg/0.5 mL subcutane ous pen injector 2024 025 [facility], [address], [place], [place], [id number], 09/08/2025 09:57:57 Senna Plus 8.6 mg-50 mg tablet [address] [facility] #28955, [address], [place], [place], [id number], 06/17/2025 10:48:31 Mounjaro 2.5 mg/0.5 mL subcutane ous pen injector [address] [facility] #96740, [address], [place], [place], [id number], 09/08/2025 09:57:30 Mounjaro 5 mg/0.5 mL subcutane ous pen injector [address] [facility] #23332, [address], [place], [place], [id number], 09/08/2025 09:57:20 prednison e 20 mg tablet [address] [facility] #[id number], [address], [place], [place], [id number], 06/12/2025 05:01:36 Patient TargetsNo targets recorded. Patient InstructionsNo instructions recorded. Reason for Referral None Reported. Results Created Date Observation Date Name Description Value Unit Range Abnormal Flag Note LastModifiedBy Organization Detail LastModifiedTime 08/06/2007/28/2025 sleep study , diagn ostic (PROC ) No observ ation record ed. [email or web address] [facility] [address] [facility] [address], [facility] [address], [place], [address], 08/10/2025 11:46:29 Result Notes None recorded. Problems Name Problem SNOMED Code Status Onset Date Resolution Date Notes Provider Name and Address Organization Details Recorded Time Depressiv e disorder 82038437 Active 2022 GLORIA kwong [facility], .L.CRandy 16:59:21 Anxiety disorder 847312815 Active 2022 GLORIA CAROLYNGEORGE elenita, [facility] 5 16:59:21 Irritable bowel syndrome 11170174 Active 2022 Irritable Colon 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 5 16:59:21 Fibromyal frederick 154064300 Active 2022 [facility] 5 16:59:21 Generaliz ed anxiety disorder 19246880 Active 2022 [facility] 16:59:21 Hypomagne semia 796551076 Active 2022 [facility] 16:59:21 Fatigue 59113645 Active 2022 [facility] 5 16:59:21 Acne vulgaris 33137241 Active 2022 [facility] 16:59:21 Hypothyro idism 98960032 Active 2022 [facility] 16:59:21 Obesity 682661328 Active 2023 [facility] 5 16:59:21 Gastroeso phageal reflux disease 973750812 Active 2023 [facility] 16:59:21 Chronic headache disorder 525673474 Active 2024 ADENLEONEL SILVESTREADIS [address], [address] [place] [address] 5, [facility] 5 16:43:32 Obstructi ve sleep apnea of adult 444102525789 3 Active 2024 ADEN TIFFANIE [address], [address] [place] [address] 5, [facility] 5 16:43:32 Diarrhea 23635430 Active 2024 Fracisco Barrera MD [address] [place] [address], [address] [place] [address] 5, [facility] 5 17:01:29 Body mass index 30+ - obesity 472193978 Active 2024 Fracisco Barrera MD [address] [place] [address], [address] [place] [address] 5, [facility] 5 10:40:23 Hyperglyc emia 86938583 Active 2024 Fracisco Barrera MD [address] [place] [address], [address] [place] [address] 5, [facility] 5 10:13:56 Problem Notes None recorded. Procedures Surgical History Date Name Laterality Status Provider Name and Address Organization Details Recorded Time 09/22/2024 Joint Inj Kenalog- Shoulder, Hip, Knee completed Boris Molina DO [address] [place] [address], [address] [place] [address], [facility] 09/22/2024 18:16:53 Imaging Results None recorded. Procedure Notes None recorded. Medical Equipment None Reported. Allergies Allergen ID Allergen Name Allergen Category Reaction Reaction Severity Criticality Documentation Date Start Date Code Code System Note Provider Name and Address Organization Details Recorded Time 92791 Bactrim medicatio n hives mild low 06/02/2023 08871 9 RxNorm Ushacristal Zepeda [facility], [facility], [facility]. 4 08:03:29 Medications Name Sig Start Date Stop Date Status Note LastModified by Organization Details LastModified Time multivita min TAKE 1 TABLET BY MOUTH EVERY DAY 09/08 completed Not Available Not Available Not Available amoxicill in 500 mg capsule TAKE [...] TAKE 1 TABLET BY MOUTH EVERY DAY 09/08 completed Not Available Not Available Not Available Lidocaine Viscous 2 % mucosal solution [...] t Available prednison e 20 mg tablet Take 2 tablets every day by oral route for 6 days. 06/12 completed Not Available Not Available Not Available ciproflox acin 500 mg tablet 10/26 [...] completed Not Available Not Available Not Available ketorolac 10 mg tablet TAKE 1 TABLET BY MOUTH EVERY 8 HOURS NEEDED FOR PAIN active Not Available Not Available No t Available levothyro xine 75 mcg tablet TAKE 1 TABLET BY MOUTH DAILY 04/16 completed Not Available Not Available Not Available Kenalog 40 mg/mL suspensio n for injection Take 40 mg by injectio n route. 11/26 completed Not Available Not Available Not Available levothyro xine 100 mcg tablet TAKE 1 TABLET BY MOUTH DAILY. DISCONTI NUE OLD DOSE 09/08 completed Not Available Not Available Not Available betametha sone acetate and sodium phos [...] TAKE 1 CAPSULE BY MOUTH EVERY DAY 2024 active Not Available Not Available Not Avai lable levothyro xine 50 mcg tablet TAKE 1 TABLET BY MOUTH DAILY A SINGLE DOSE BEFORE BREAKFAS T 04/16 completed Not Available Not Available Not Available pantopraz ole 40 mg tablet,de layed release TAKE 1 TABLET BY MOUTH DAILY active Not Available Not Available No t Available cyanocoba daryn (vit B-12) 1,000 mcg/mL injection solution Inject 1 mL every month by subcutan eous route for 30 days. 2024 active Pt brought medicati on. AV Not Available Not Available Not Available levothyro xine 125 mcg tablet TAKE 1 TABLET BY MOUTH DAILY 6 DAYS A WEEK AND TAKE 1/2 TABLET BY MOUTH 1 DAY A WEEK active Not Available Not Available No t Available prednison e 50 mg tablet TAKE [...] Recorded 11/13/19 2:43PM by Gloria holbrook (Authori shala through Fracisco Barrera MD), Annotati on/Adden [...] completed Not Available Not Available Not Available ondansetr on 4 mg disintegr ating tablet DISSOLVE 1 TABLET ON THE TONGUE EVERY 8 HOURS FOR 3 DAYS active Not Available Not Available No t Available doxycycli ne hyclate 100 mg tablet 04/16 completed Not Available Not Available Not Available dicyclomi ne 10 mg capsule TAKE 1 CAPSULE BY MOUTH TWICE DAILY FOR CRAMPING active Not Available Not Available No t Available levothyro xine 112 mcg tablet TAKE 1 TABLET BY MOUTH DAILY 10/26 completed Not Available Not Available Not Available amoxicill in 875 mg-potass ium clavulana te 125 mg tablet TAKE 1 TABLET BY MOUTH TWICE DAILY FOR 7 DAYS 06/17 completed Not Available Not Available Not Available cyanocoba daryn (vit B-12) 1,000 mcg/mL injection syringe x1 07/18 completed may use monthly; Recorded 01/11/20 2:43PM by Fracisco Barrera MD, Refill Request; Refill Quantity : 1; Millilit er; Not Available Not Available Not Available Senna Plus 8.6 mg-50 mg tablet Take 2 tablets every day by oral route for 30 days. 2024 active Not Available Not Available Not Avai lable topiramat e 50 mg tablet TAKE 3 TABLETS BY MOUTH DAILY active Not Available Not Available No t Available duloxetin e 60 mg capsule,d elayed release TAKE 2 CAPSULES BY MOUTH DAILY 2024 active Not Available Not Available Not Avai lable chlorhexi dine gluconate 0.12 % mouthwash RINSE AND GARGLE 15 ML BY MOUTH TWICE DAILY 04/16 completed Not Available Not Available Not Available oxybutyni n chloride at bedtime 10/26 completed Recorded 01/05/20 9:46AM by Raquel Hinojosa, Office Visit; Refill Quantity : 30; Tablet; Not Available Not Available Not Available hydroxyzi ne HCl TID/PRN 07/18 completed RM/CC; Recorded 08/08/20 7:32AM by Fracisco Barrera MD, Refill Request; Refill Quantity : 90; Tablet; Not Available Not Available Not Available Vitamin D weekly 2021 active VO RM/bn; 9; Recorded 06/12/20 4:19PM by Raquel Hinojosa (Authori zed through Fracisco Barrera MD), Refill Request; Refill Quantity : 4; Capsule; Not Available Not Available Not Available nortripty line at bedtime 07/18 completed RM/AV; 9; Recorded 08/08/20 22 4:39PM by Gloria holbrook (Authori zed through Fracisco Barrera MD), Annotati on/Adden dum; Refill Quantity : 90; Capsule; Not Available Not Available Not Available L-Thyroxi ne 10/[address] Grover. (Antonino); 0; Recorded 01/11/20 23 2:33PM by Raquel Hinojosa, Office Visit; Not Available Not Available Not Available Vitamin daily 07/18 completed RM/AV; 9; Recorded 04/10/20 22 3:08PM by Gloria holbrook (Authori zed through Fracisco Barrera MD), Annotati on/Adden dum; Refill Quantity : 90; Tablet; Not Available Not Available Not Available Victoza 0.6 mg/0.1 mL (18 mg/3 mL) subcutane ous pen injector daily 07/18 completed Recorded 01/11/20 23 2:33PM by Raquel Hinojosa, Office Visit; Refill Quantity : 1; Packet; Not Available Not Available Not Available BC Arthritis 1,000 mg-65 mg oral powder packet Take by oral route. 01/30 completed Not Available Not Available Not Available Victoza 3-Hal 0.6 mg/0.1 mL (18 mg/3 mL) subcutane ous pen injector ADMINIST ER 1.2 MG UNDER THE SKIN EVERY DAY active Not Available Not Available No t Available Trulicity 0.75 mg/0.5 mL subcutane ous [...] Not Available Not Available Not Avai lable M-Sheila Plus 27 mg iron-1 mg tablet TAKE [...] 5 mg/0.5 mL subcutane ous pen injector Inject 5 mg every week by subcutan eous route for 28 days. 09/08 completed Not Available Not Available Not Available Mounjaro 2.5 mg/0.5 mL subcutane ous pen injector Inject 2.5 mg every week by subcutan eous route for 28 days. 09/08 completed Not Available Not Available Not Available Zepbound 5 mg/0.5 mL subcutane ous pen injector Inject 5 mg every week by subcutan eous route for 28 days. 09/08 completed Not Available Not Available Not Available Zepbound 2.5 mg/0.5 mL subcutane ous pen injector Inject 2.5 mg every week by subcutan eous route for 28 days. 09/08 completed Not Available Not Available Not Available Vitals Date Recorded Body height Body mass index (BMI) Body weight Body temperature Heart rate Oxygen saturation Oxygen saturation in Arterial blood by Pulse oximetry Systolic And Diastolic Provider Name and Address Organization Details Last Updated DateTime 162.56 cm 30.6 kg/m2 19090.4 4 g 98.3 [degF] 120 /min 98 % 98 % 128/72 mm[Hg] Kierra Fox [facility] 5 17:07:12 Date Recorded Body height Body mass index (BMI) Body weight Oxygen saturation Oxygen saturation in Arterial blood by Pulse oximetry Heart rate Systolic And Diastolic Provider Name and Address Organization Details Last Updated DateTime 162.56 cm 31.9 kg/m2 62851.1 8 g 98 % 98 % 110 /min 110/68 mm[Hg] RAQUEL HINOJOSA [facility] 5 10:17:10 Date Recorded Body height Body mass index (BMI) Body weight Heart rate Oxygen saturation Oxygen saturation in Arterial blood by Pulse oximetry Systolic And Diastolic Provider Name and Address Organization Details Last Updated DateTime 5 162.56 cm 33.1 kg/m2 75447.3 3 g 103 /min 96 % 96 % 110/78 mm[Hg] RAQUEL HINOJOSA [facility] 5 14:52:08 Date Recorded Body height Oxygen saturation Oxygen saturation in Arterial blood by Pulse oximetry Heart rate Body mass index (BMI) Body weight Body temperature Systolic And Diastolic Provider Name and Address Organization Details Last Updated DateTime 5 162.56 cm 96 % 96 % 85 /min 35.2 kg/m2 87224.8 4 g 98 [degF] 140/80 mm[Hg] Connie Yeager [facility] 5 18:40:51 Date Recorded Body height Body mass index (BMI) Body weight Heart rate Systolic And Diastolic Provider Name and Address Organization Details Last Updated DateTime 09/08/2025 162.56 cm 34 kg/m2 04396.29 g 94 /min 139/70 mm[Hg] GLORIA MARIE [facility] 09:54:45 Social History Question Answer Notes LastModified by [employer] Details LastModified Time Tobacco Smoking Status Never Smoker RAQUEL HINOJOSA [facility] 07/18/2023 10:22:58 What Was The Date Of Your Most Recent Tobacco Screening? 09/08/2025 [email or web address] Information not available 09/08/2025 Sex: Unknown Functional Status Question Answer Note LastModified by [employer] Details LastModified Time Do you use any illicit or recreational drugs? No Information not available 07/18/2023 What is your level of alcohol consumption? None [email or web address] Information not available 07/18/2023 Mental Status None recorded. Family History Relationship Description Onset Age of this Age Resolved Age Notes LastModified by Organization Details LastModified Time Father Heart disease [email or web address] Not available 09/08 09:58:17 Father Essential hypertension [email or web address] Not available 09:58:26 Medical History No medical history recorded. Gynecological HistoryNo gynecological history recorded. Obstetrics History GPAL:G 0 P 0 0 0 0 Immunizations Vaccine Type Date Status Note Provider Nam e and Address Organization Details Recorded Time Tdap 1 completed Not Available [facility] 12/05/2023 18:49:14 Tdap 3 completed Not Available [facility] 12/05/2023 18:49:14 Influenza, split virus, trivalent, preservative 3 completed Not Available [facility] 12/05/2023 18:49:14 Influenza, split virus, trivalent, preservative 6 completed Not Available [facility] 12/05/2023 18:49:14 COVID-19, mRNA, LNP-S, PF, 100 mcg/0.5mL dose or 50 mcg/0.25mL dose 1 completed Not Available [facility] 12/05/2023 18:49:14 COVID-19, mRNA, LNP-S, PF, 100 mcg/0.5mL dose or 50 mcg/0.25mL dose 1 completed Not Available [facility] 12/05/2023 18:49:14 Past Encounters Encounter ID Performer Location Encounter Start Date Encounter Closed Date Diagnosis/Indication Diagnosis SNOMED-CT Code Diagnosis ICD10 Code Diagnosis IMO Codes Diagnosis Note [id number] Fracisco Barrera MD [facility] ([facility]) [address] [place] [id number] 5 04/16/2023 10:03:15 04/16/2023 11:35:23 Generalized anxiety disorder 53456465 F41.1 Hypomagnesemia 333691579 E83.42 Obesity 323414645 E66.9 Hypothyroidism 66264923 E03.9 Fatigue 96443655 R53.83 [id number] Fracisco Barrera MD [facility] ([facility]) [address] [place] [id number] 5 07/18/2023 10:10:15 07/18/2023 11:49:13 Hypothyroidism 27953258 E03.9 seeing endocrinol ogy. Fibromyalgia 717902879 M 79.7 stable at this time. Generalize d anxiety disorder 06329681 F41.1 worrying about her children. Anxiety disorder F41.9 [id number] Isaak Latham MD [facility] ([facility]) [address] [place] [id number] 5 08/29/2023 14:21:28 09/05/2023 22:37:57 Upper respiratory infection 46796894 J06.9 COVID-19 562591337 U07.1 Patient is positive for COVID. Patient does not have significan t risk factors that puts her in the high risk category that would warrant Paxlovid. Discussed symptomati c treatment and plenty of fluids. Follow-up if significan t shortness of breath or worsening symptoms does develop. [id number] AARON PHELAN [facility] ([facility]) [address] [place] [id number] 5 09/01/2023 16:00:25 09/01/2023 17:11:58 COVID-19 775929402 U07.1 [id number] Fracisco Barrera MD [facility]) [address] [place] [id number] 5 10/26/2023 11:17:23 10/26/2023 15:01:56 Hypothyroidism 38841060 E03.9 seeing endocrinol ogy. 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 [id number] Fracisco Barrera MD [facility] ([facility]) [address] [place] [id number] 5 01/16/2024 14:15:12 01/16/2024 15:28:39 Constipation 05579677 K59.00 Hemorrhoids 04989807 K64 .9 Generalize d anxiety disorder 79836988 F41.1 Obesity 492604668 E66.9 I still recommend Ozemipic or similar meds for this. Fatigue 16781241 R53.83 [id number] Fracisco Barrera MD [facility] ([facility]) [address] [place] [id number] 5 01/30/2024 14:10:49 01/30/2024 15:57:31 Pain of left knee joint 7084876363 52424 M25.562 Arthrocent esis performed left knee joint with cleansing of medial knee with alcohol prep and injection of 1ml lidocaine and Betamethas one 6mg into the joint. No complicati ons. [id number] Fracisco Barrera MD [facility] ([facility]) [address] [place] [address] [id number] 5 03/25/2024 16:32:15 03/25/2024 17:20:45 Tick bite 79569465 W57.XXXA With myalgia and chills will go ahead and treat with Doxycyclin e. [id number] Fracisco Barrera MD [facility] ([facility]) [address] [place], [place] [address] 04/23/2024 16:29:42 04/23/2024 17:24:55 Fatigue 06507892 R53.83 Tick bite 80631525 W57.X XXA improving myalgia RUQ pain. [id number] Fracisco Barrera MD [facility] ([facility]) [address] [place] [id number] 5 07/04/2024 16:24:46 07/04/2024 17:27:33 Fatigue 90517065 R53.83 [id number] Fracisco Barrera MD [facility] ([facility]) [address] [place] [id number] 5 07/28/2024 16:24:32 07/28/2024 17:48:46 Fatigue 87422650 R53.83 Gastroesop hageal reflux disease 699636923 K21.9 failed once daily pantoprazo le. Will go to bid. [id number] Boris Molina DO [facility] ([facility]) [address] [place] [id number] 5 09/22/2024 17:24:46 09/22/2024 18:31:56 Pain of left knee joint 2529720396 31381 M25.562 I counseled pt on DX and treatment options. She does not want another xray or imaging or PT at this time. Pt desires to proceed with Joint injection today. Performed as documented . Pt tolerated well. counseled on limiting activity the next 24 hrs. return if problems. [id number] Fracisco Barrera MD [facility] ([facility]) [address] [place] [address] [id number] 5 09/29/2024 16:38:50 09/29/2024 17:41:38 Anxiety disorder 562924631 F41.9 Fatigue 60693502 R53.83 improving with change in thyroid dose. Anterior c ervical lymphadenopathy 282225994 R59.0 right, mild. Her endocrinol ogist will be ordering a neck CT. [id number] Fracisco Barrera MD [facility] ([facility]) [address] [place] [address] [id number] 5 11/21/2024 15:50:34 11/24/2024 13:17:03 [id number] Fracisco Barrera MD [facility] ([facility]) [address] [place] [address] [id number] 5 11/26/2024 15:05:18 11/27/2024 10:10:27 Anterior cervical lymphadenopathy 616122913 R59.[address] neck as noted. Tenderness of breast 552 68953 N64.4 Lump in up per outer quadrant of right breast 1011421863 20045 N63.11 Suspect cyst. [id number] Fracisco Barrera MD [facility] ([facility]) [address] [place] [address] [id number] 5 01/19/2025 17:21:32 01/21/2025 04:07:33 Fatigue 41088242 R53.83 improving with change in thyroid dose. [id number] Fracisco Barrera MD [facility]) [address] [place] [address] [id number] 5 01/27/2025 16:14:28 01/27/2025 17:38:37 Generalized anxiety disorder 63707056 F41.1 Hypothyroidism 97031614 E03.9 seeing endocrinol ogy. Chronic he adache disorder 464530607 G44.89 Obstructiv e sleep apnea of adult 6374329094 103 G47.33 Using CPAP nightly and it comes off in the middle of the night as she is restless in her sleep. She is interested in checking out the [employer]. [id number] AARON VERAS [facility] ([facility]) [address] [place] [address] [id number] 5 01/30/2025 16:32:13 01/30/2025 18:53:21 Acute pansinusitis 9564947 J01.40 May use Julio Cesar's nasal inserts and also apply on chest. Push oral fluids. Consider nasal saline rinses and otc decongesta nt.Use tylenol/mo aishwarya for vasquez. [id number] Boris Molina DO [facility] ([facility]) [address] [place] [address] [id number] 5 03/04/2025 17:06:21 03/10/2025 14:55:56 Fatigue 70098446 R53.83 [id number] Fracisco Barrera MD [facility] ([facility]) [address] [place] [address] [id number] 5 04/07/2025 15:49:38 04/08/2025 11:00:30 Irritable bowel syndrome 00370868 K58.9 Diarrhea 46465247 R19.7 86540143 Generalize d anxiety disorder 87984444 F41.1 [id number] AARON VERAS [facility] ([facility]) [address] [place] [address] [id number] 5 05/29/2025 16:59:12 05/29/2025 18:55:31 Viral upper respiratory tract infection 062116189 J06.9 [id number] Discussed use of otc medication s for symptom management .Push oral fluids and rest.If you develop fever, sob, or start feeling worse then return for re-evaluat ion. [id number] Fracisco Barrera MD [facility] ([facility]) [address] [place] [address] [id number] 5 06/17/2025 10:09:16 06/17/2025 11:11:57 Generalized anxiety disorder 97968532 F41.1 Depressive disorder 3548 9007 F32.A Fibromyalgia 856465159 M 79.7 stable at this time. Obstructiv e sleep apnea of adult 7656579222 103 G47.33 Using CPAP nightly. Body mass index 30+ - obesity 367332247 E66.9 6199821 Constipation 53240524 K5 9.00 [id number] Fracisco Barrera MD [facility] ([facility]) [address] [place] [address] [id number] 5 07/07/2025 14:41:26 07/07/2025 16:21:33 Obesity [id number] E66.9 Needs a GLP-1 as she has obesity and is having increased joint pain and other problems due to her obesity. Hypothyroidism [id number] E03.9 Back on 125mcg levothyrox ine. [id number] AARON VERAS [facility] ([facility]) [address] [place] [phone] 08/25/2025 18:35:57 08/26/2025 09:00:26 Acute gastroenteritis [id number] K52.9 [id number] Fracisco Barrera MD [facility] ([facility]) [address] [place] [phone] 5 09/08/2025 09:36:04 09/08/2025 11:13:29 Fatigue [id number] R53.83 improving some Obesity [id number] E66.9 Hyperglycemia [id number] R 73.9 89116 probable prediabete s. Health Concerns Section Related Observation LastModified by Organization Detai ls LastModified Time None Recorded Concern Status LastModified by Organization Details LastModified Time None Recorded Advance Directives Directive None Recorded Payers Insurance Date Sequence Insurance Name Policy Number Policy Sanchez Covered Member ID Sanchez Member ID Guarantor Name 09/11/2025 [place] [facility] [place] Iram Ellis [id number] Iram Easley 09/05/2025 2 [place] Iram Dent [id number] Iram Easley 04/07/2025 1 [facility] - DUAL ELIGIBLE (MEDICARE REPLACEMENT/ ADVANTAGE - HMO) Iram Easley [id number] Iram Easley 09/12/2025 1 [employer] (MEDICARE REPLACEMENT/ ADVANTAGE - PPO) [id number] Iram Easley [id number] Iram Easley Notes Date Note Type Note Provider Name and Address Organization Details Recorded Time 05/29/2025 text/html ROS as noted in the HPI walk in ptPt is having left ear pain, sore throat and has a knot on the left side also. Symptoms started about 1 day ago. no meds taken for this. is eating/drinking well. ADEN MORENOAARON [address] [place], [address], [facility] 06/01/2025 10:46:24 06/17/2025 text/html Went to ER on 06/11/25 for jaw pain. They gave her some toradol and she has been doing well since that. CT was negative for abscess but was being treated for a dental infection at the time. She was also diagnosed with TMJ syndrome.Would like to discuss weight today, would like to be back on Mounjaro. Fracisco Barrera MD [address] [place] [address], [phone], [facility] 06/17/2025 10:50:30 07/07/2025 text/html Would like to discuss weight today, unable to get the mounjaro. Fracisco Barrera MD [address] [place] [address], [phone], [facility] 07/07/2025 15:30:19 08/25/2025 text/html ROS as noted in the HPI walk inStarted this am- diarrhea, VASQUEZ, body aches, chills ADEN MORENOAARON [address] [place] [address], [phone], [facility] 08/25/2025 19:04:45 09/08/2025 text/html FatigueReported by PatientHPIFor associated symptoms, patient reportsdepression,anx iety,sleep disturbances, andunrefreshing sleep. Overweight/ObeseRepor clyde by PatientHPIFor associated symptoms, patient reportsfatigue. For context, patient reportshypothyroidism . Fracisco Barrera MD [address] [place] [address], [phone], [facility] 09/08/2025 10:26:38 OBGyn Episode No OBEpisode recorded.
--- OUTSIDE RECORDS SUMMARY | 2025-09-23 17:45 | XMS_ITS | Clinical Summary ---
Author Organization [employer] Address [address] 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
--- OUTSIDE RECORDS SUMMARY | 2025-09-23 17:45 | XMS_ITS | Encounter Summary ---
Author Organization [facility] Address [address] [place] [address] Care Team Providers Care Motorcyles Final Inspector Name Role Phone Gopi Barrera MD Primary Care Provider [phone] Encounter Details Date Type Department Care Team (Late st Contact Info) Description 07/09/2003 Emergency [facility] Emergency Department [address] 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
--- OUTSIDE RECORDS SUMMARY | 2025-09-23 17:45 | XMS_ITS | Encounter Summary ---
Author Organization [facility] Address [address] [place] [address] Care Team Providers Care Casket Liner Name Role Phone Gopi Barrera MD Primary Care Provider [phone] Encounter Details Date Type Department Care Team (Latest Contact Info) Description 07/18/2006 Outpatient Historical [facility] Endocrinology-[facility] [place] [address] [place] [address] Delroy Rudolph MD NO ADDRESS ON FILE Chronic Lymphocytic Thyroiditis (Primary Dx); Abnormal Weight Gain Social History Tobacco Use Types Packs/Day Years Used Date Smoking Tobacco: Never Assessed Comments Unknown Sex and Gender Information Value Date Recorded Sex Assigned at Not on file 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
--- OUTSIDE RECORDS SUMMARY | 2025-09-23 17:46 | XMS_ITS | Clinical Summary ---
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 ANALYST Gender Identity Not on file Sexual Orientation Not on file Occupation Industry Job Start Date Job End Date Not on file Not on file Not on file Not on file Last Filed Vital Signs Vital Sign Reading Time Taken Comments Blood Pressure 127/86 09/08/2012 4:20 PM SOFTWARE QUALITY ASSURANCE ANALYST Pulse 84 09/08/2012 4:20 PM SOFTWARE QUALITY ASSURANCE ANALYST Temperature 35.8 C (96.4 F) 09/08/2012 4:20 PM SOFTWARE QUALITY ASSURANCE ANALYST Respiratory Rate 20 09/08/2012 4:20 PM SOFTWARE QUALITY ASSURANCE ANALYST Oxygen Saturation 99% 09/08/2012 4:20 PM SOFTWARE QUALITY ASSURANCE ANALYST Inhaled Oxygen Concentration - - Weight 90.7 kg (200 lb) 09/08/2012 4:20 PM SOFTWARE QUALITY ASSURANCE ANALYST Height 162.6 cm (5' 4 ) 09/08/2012 4:20 PM SOFTWARE QUALITY ASSURANCE ANALYST Body Mass Index 34.33 09/08/2012 4:20 PM SOFTWARE QUALITY ASSURANCE ANALYST Plan of Treatment Health Maintenance Due Date [...] Advance Directives For more information, please contact: [phone] * Full Code (Latest Code Status on File) Date Activated Date Inactivated Comments 09/08/2012 4:25 PM 09/08/2012 7:16 PM * Full Code Date Activated Date Inactivated Comments 09/03/2012 3:50 PM 09/03/2012 7:43 PM * Full Code Date Activated Date Inactivated Comments 08/28/2012 11:34 AM 08/28/2012 1:48 PM Care Teams Registered Private Duty Nurse Relationship Specialty Start Date End Date Gopi Barrera MD [address] [address] PCP - General 07/09/03
--- OUTSIDE RECORDS SUMMARY | 2025-09-23 17:46 | XMS_ITS | Encounter Summary ---
Author Organization [facility] Address [address] [place] [address] Care Team Providers Care Contact Center Assistant Name Role Phone Gopi Barrera MD Primary Care Provider [phone] Encounter Details Date Type Department Care Team (Late st Contact Info) Description 08/29/2012 Abstract [facility] Anatomic Pathology [address] [place] [address] Provider, Abstract Spg NO ADDRESS ON FILE Social History Tobacco Use Types Packs/Day Years Used Date Smoking Tobacco: Former Cigarettes Q uit: 03/05/2012 Alcohol Use Standard Drinks/Week Comments No 0 (1 standard drink = 0.6 oz pur e alcohol) Comments Yes Sex and Gender Information Value Date Recorded Sex Assigned at Not on file 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 Gender Identity Not on file Sexual Orientation [...] * PATHOLOGY REPORT (08/29/2012) PATHOLOGY/CYTOLO GY REPORT [facility] CORRECTED REPORT [facility] ADDENDUM REPORT [facility] REVISED FINAL REPORT [facility] SURGICAL PATHOLOGY [facility] FINAL REPORT [facility] SERVICES [facility] FINAL REPORT [facility] FINAL REPORT [facility] PRELIMINARY REPORT [facility] us Abstract Spg Provider PATHOLOGY/CYTOLOGY ORDERAB LES Final Result [facility] CLIA# [id number] [address] [place] [address] documented in this encounter Visit Diagnoses Not on filedocumented in this encounter Care Teams Contact Center Assistant Relationship Specialty Start Date End Date Gopi Barrera MD [address] [phone] PCP - General 07/09/03 documented as of this encounter
--- OUTSIDE RECORDS SUMMARY | 2025-09-23 17:46 | XMS_ITS | Encounter Summary ---
Author Organization [facility] Address [address] [place] [address] Care Team Providers Care Visitor Use Assistant Name Role Phone Gopi Barrera MD Primary Care Provider [phone] Encounter Details Date Type Department Care Team (Latest Contact Info) Description 10/18/[address] 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
--- OUTSIDE RECORDS SUMMARY | 2025-09-23 17:46 | XMS_ITS | Encounter Summary ---
Author Organization [facility] Address [address] [place] [address] Care Team Providers Care Clinical Laboratory Aide Name Role Phone Gopi Barrera MD Primary Care Provider [phone] Encounter Details Date Type Department Care Team (Latest Contact Info) Description 08/23/2006 Outpatient Historical [facility] Rheumatology- [place] [address] [place] [address] Caitlin Hernadez MD [address] [place] [address] Viral Infection (Primary Dx) Social History Tobacco Use Types Packs/Day Years Used Date Smoking Tobacco: Never Assessed Comments Unknown Sex and Gender Information Value Date Recorded Sex Assigned at Not on file Legal Sex Female 3:53 AM CUSTOMER SUPPORT ASSISTANT Gender Identity Not on file Sexual Orientation [...] Primary documented in this encounter Care Teams Clinical Laboratory Aide Relationship Specialty Start Date End Date Gopi Barrera MD [address] [place] [address] PCP - General 07/09/03 documented as of this encounter
--- OUTSIDE RECORDS SUMMARY | 2025-09-23 17:46 | XMS_ITS | Encounter Summary ---
Author Organization [facility] Address [address] [place] [address] Care Team Providers Care Crude Unit Operator Name Role Phone Gopi Barrera MD Primary Care Provider [phone] Encounter Details Date Type Department Care Team (Latest Contact Info) Description 09/18/2006 Outpatient Historical [facility] Neuro Psychology [address] [place] [address] Michael Fox, PhD NO ADDRESS ON FILE Depressive Disorder, not Elsewhere Classified (Primary Dx) Social History Tobacco Use Types Packs/Day Years Used Date Smoking Tobacco: Never Assessed Comments Unknown Sex and Gender Information Value Date Recorded Sex Assigned at Not on file 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
--- OUTSIDE RECORDS SUMMARY | 2025-09-23 17:46 | XMS_ITS | Encounter Summary ---
Author Organization [facility] Address [address] [place] [address] Care Team Providers Care Maintenance Mechanic Elevators Name Role Phone Gopi Barrera MD Primary Care Provider [phone] Encounter Details Date Type Department Care Team (Latest Contact Info) Description 08/23/2006 Outpatient Historical [facility] Rheumatology- [place] [address] [place] [address] Caitlin Hernadez MD [address] [place], [place] [id number] Rheumatism, Unspecified and Fibrositis (Primary Dx); Viral Infection Social History Tobacco Use Types Packs/Day Years Used Date Smoking Tobacco: Never Assessed Comments Unknown Sex and Gender Information Value Date Recorded Sex Assigned at Not on file 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
--- OUTSIDE RECORDS SUMMARY | 2025-09-23 17:46 | XMS_ITS | Encounter Summary ---
Author Organization [facility] Address [address] [place] [address] Care Team Providers Care Wood Treating Inspector Name Role Phone Gopi Barrera MD Primary Care Provider [phone] Encounter Details Date Type Department Care Team (Latest Contact Info) Description 10/18/2006 Outpatient Historical [facility] Rheumatology- [place] [address] [place] [address] Caitlin Hernadez MD [address] [place], [place] [id number] Rheumatism, Unspecified and Fibrositis (Primary Dx) Social History Tobacco Use Types Packs/Day Years Used Date Smoking Tobacco: Never Assessed Comments Unknown Sex and Gender Information Value Date Recorded Sex Assigned at Not on file 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
--- OUTSIDE RECORDS SUMMARY | 2025-09-23 17:46 | XMS_ITS | Encounter Summary ---
Author Organization [email or web address] Address [address] [place] [address] Care Team Providers Care Browning Processor Name Role Phone Gopi Barrera MD Primary Care Provider Encounter Details Date Type Department Care Team (Latest Contact Info) Description 10/11/2006 Outpatient Historical [facility] Neuro Psychology [address] [place] [address] Michael Fox, PhD NO ADDRESS ON FILE Depressive Disorder, not Elsewhere Classified (Primary Dx) Social History Tobacco Use Types Packs/Day Years Used Date Smoking Tobacco: Never Assessed Comments Unknown Sex and Gender Information Value Date Recorded Sex Assigned at Not on file 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
[2025-09-23 18:06] VITALS: BP 107/75; PULSE 96; RESP 18; O2SAT 99
== END 2025-09-23 17:22 | disposition home or self-care (01) ==
PROVIDERS: Emergency Provider Physician Assistant; PCP Family Medicine
DX: K52.9 Noninfective gastroenteritis and colitis, unspecified (principal); E86.0 Dehydration; F17.290 Nicotine dependence, other tobacco product, uncomplicated
CPT/HCPCS: 80053; 83690; 85025; 96361; 96374; 99284; J2405; J7030